=== PATIENT | female | born 1955 | race African-American/Black ===

== ENCOUNTER → 2019-03-30 09:44 | Outpatient (CLI) | payer OTHER, SELFPAY ==
--- NOTE | 2019-03-30 | DI.NM.S_ITS ---
PROCEDURE: NM DUSTY PERF SPECT REST & STR Rest and exercise myocardial perfusion SPECT with gated imaging and ejection fraction RADIOPHARMACEUTICAL: 24.4mCi Tc-99m sestamibi IV at rest and 24.4 mCi Tc-99m sestamibi IV at peak exercise. A 4-tmd-evwwwmte was performed. INDICATIONS: CHEST PAIN TECHNIQUE: Radiopharmaceutical was injected at peak stress test, and also at rest. SPECT images were obtained. SPECT myocardial perfusion images were displayed in short axis, horizontal long axis, and vertical long axis views. Gated images were reviewed using GPNX software. COMPARISON: None. CARDIAC STRESS: A standard Leo treadmill exercise tolerance test was performed by the patient under the supervision of an attending staff. The patient exercised for 3 minutes and 49 seconds; functional aerobic impairment (NAVDEEP) is +35 %. Hemodynamic data: There is normal blood pressure and heart rate response to exercise stress. Patient achieved 88% of maximum predicted heart rate at peak exercise. Symptoms: Patient denied chest pain during exercise. EKG: No diagnostic EKG changes of ischemia; no ectopy. FINDINGS: Raw data: There is good myocardial labeling by radiotracer. No significant motion artifacts. Fvlh-oi-vtbgs ratio is 0.26 (normal is less than 0.38 for sestamibi tracer, and less than 0.50 for thallium tracer). Left ventricle function: Gated images demonstrate normal left ventricle wall thickening. No segmental wall motion abnormality. No transient ischemic dilation; TID is 0.85 (normal less than 1.3). The left ventricle resting end-diastolic volume is 89 mL. Left ventricle stress ejection fraction is 66% ; normal values are above 45%. Myocardial perfusion: There is normal distribution of activity in the left ventricular myocardium. No fixed or reversible perfusion defects. IMPRESSION: Normal perfusion study without evidence of ischemia or scar. Impaired exercise tolerance. Dictated by: Akbar Huber M.D. on 03/31/2019 at 16:40 Approved by: Akbar Huber M.D. on 03/31/2019 at 16:48
--- NOTE | 2019-03-30 10:48 | PM.TREADMILL ---
Cardiac Stress Test Report Referral & Results Date Patient Seen: 03/30/19 Requesting provider: Georgie Serrano Indication: Chest discomfort Rest ECG: Unremarkable Procedure Note: Today following both written and verbal informed consent the patient was exercised according to a standard Leo protocol patient went for a total of 3 minutes 49 seconds (patient unable to keep up with the treadmill even at this slow speed and it was manually reduced in speed) achieving a maximum heart rate of 138 maximum systolic blood pressure of 150. This is approximately 4.6 METS. Exercise was terminated at this point because of patient unable to continue. Patient was also given Cardiolite through a previously started Hep-Lock IV by the diagnostic imaging staff approximately 1 minute prior to the cessation of exercise. No ST-T segment changes Normal heart rate and blood pressure response Functional aerobic impairment rates about 25% on the sedentary scale Impression: No ECG evidence of ischemia Limited exercise capacity Please see perfusion imaging report as well Please note: Actual ECG tracings can be found in the PACS system.
== END ==
PROVIDERS: PCP Family Medicine; Visit Provider Family Medicine
DX: R07.89 Other chest pain (principal)
CPT/HCPCS: 78452; 93016; 93017; 93018; A9502

== ENCOUNTER → 2019-09-14 10:03 | Outpatient (CLI) | payer OTHER, SELFPAY ==
--- NOTE | 2019-09-14 | DI.US.S_ITS ---
ULTRASOUND OF LEFT BREAST: 09/14/2019 CLINICAL: Palpable left breast lump. No prior exams were available for comparison. Color flow and real-time ultrasound of the left breast were performed on the areas of interest. Paul scale images of the real-time examination were reviewed. There is a 0.9 cm x 0.4 cm x 0.9 cm mass in the left breast at 12 o'clock middle depth. This mass is hyperechoic. This correlates as palpated. IMPRESSION: INCOMPLETE: NEEDS ADDITIONAL IMAGING EVALUATION The 0.9 cm x 0.4 cm x 0.9 cm mass in the left breast likely represents fat necrosis and is indeterminate. Diagnostic mammogram is recommended and will immediately follow this exam. This exam was interpreted at Station ID: [id number]. Electronically Signed By: Danielle Burrows M.D. lk/:09/14/2019 16:09:49 Ultrasound BI-RADS: 0 Indeterminate
--- NOTE | 2019-09-14 | DI.MG.S_ITS ---
UNILATERAL LEFT DIGITAL DIAGNOSTIC MAMMOGRAM 3D/2D: 09/14/2019 CLINICAL: Leftbreastlump. Comparison is made to exams dated: 05/07/2019 mammogram, 12/18/2016 mammogram, and 09/30/2015 mammogram - [facility]. The tissue of left breast is predominantly fatty. No significant masses, calcifications, or other findings are seen in the breast. IMPRESSION: PROBABLY BENIGN There is no mammographic abnormality seen in the left breast to correspond with the palpable abnormality and ultrasound finding at 12 o'clock. A follow-up left mammogram and an ultrasound in 6 months is recommended to demonstrate stability. This exam was interpreted at Station ID: [id number]. NOTE: For mammograms, a report in lay terms will be sent to the patient. Approximately 15% of breast malignancies will not be visualized mammographically. In the management of a palpable breast mass, a negative mammogram must not discourage biopsy of a clinically suspicious lesion. Electronically Signed By: Danielle Burrows M.D. lk/:09/14/2019 16:10:53 letter sent: Followup Recommended ACR BI-RADS Category 3: Probably benign [id number]
== END ==
PROVIDERS: PCP Family Medicine; Referring Provider Family Medicine; Visit Provider Family Medicine
DX: N63.25 Unspecified lump in the left breast, overlapping quadrants (principal)
CPT/HCPCS: 76642; 77065; G0279

== ENCOUNTER → 2020-04-13 12:43 | Outpatient (CLI) | payer OTHER, SELFPAY ==
--- NOTE | 2020-04-13 | DI.MG.S_ITS ---
BILATERAL DIGITAL DIAGNOSTIC MAMMOGRAM 3D/2D SHORT-TERM FOLLOW-UP: 04/13/2020 CLINICAL: Patient returns for a 6 month follow up of the left breast, due for bilateral exam. Comparison is made to exams dated: 09/14/2019 ultrasound - [facility], 05/07/2019 mammogram, 12/18/2016 mammogram - [facility], and 09/14/2019 mammogram - [facility]. There are scattered fibroglandular elements in both breasts. No significant masses, calcifications, or other findings are seen in either breast. IMPRESSION: INCOMPLETE: NEEDS ADDITIONAL IMAGING EVALUATION There is no abnormality seen in the left breast to correspond with the ultrasound finding, however, ultrasound is recommended. This exam was interpreted at Station ID: [id number]. NOTE: For mammograms, a report in lay terms will be sent to the patient. Approximately 15% of breast malignancies will not be visualized mammographically. In the management of a palpable breast mass, a negative mammogram must not discourage biopsy of a clinically suspicious lesion. SUMMARY: Targeted ultrasound is recommended for further evaluation and will be scheduled immediately following this exam. Electronically Signed By: Hay vazquez/erna:04/13/2020 13:43:03 ACR BI-RADS Category 0: Incomplete [id number]
--- NOTE | 2020-04-13 | DI.US.S_ITS ---
LIMITED ULTRASOUND OF LEFT BREAST: 04/13/2020 CLINICAL: 6 month follow-up of cysts. Comparison is made to exams dated: 04/13/2020 mammogram, 09/14/2019 mammogram, 09/14/2019 ultrasound - [facility], and 05/07/2019 mammogram - [facility]. Color flow ultrasound of the left breast 12 o'clock region was performed. Paul scale images of the real-time examination were reviewed. There is a 0.9 cm x 0.4 cm x 0.9 cm mass in the left breast at 12 o'clock middle depth 3 cm from the nipple. This mass is hyperechoic. This abnormality is not significantly changed. IMPRESSION: PROBABLY BENIGN The 0.9 cm x 0.4 cm x 0.9 cm mass in the left breast likely represents fat necrosis and is probably benign. A follow-up left ultrasound in 6 months is recommended to demonstrate stability. This exam was interpreted at Station ID: [id number]. Electronically Signed By: Hay vazquez/erna:04/13/2020 14:09:29 letter sent: Followup Recommended Ultrasound BI-RADS: 3 Probably benign
== END ==
PROVIDERS: PCP Family Medicine; Referring Provider Family Medicine; Visit Provider Family Medicine
DX: R92.8 Other abnormal and inconclusive findings on diagnostic imaging of breast (principal); N63.25 Unspecified lump in the left breast, overlapping quadrants
CPT/HCPCS: 76642; 77066; G0279

== ENCOUNTER → 2020-09-21 11:08 | Outpatient (CLI) | payer OTHER, SELFPAY ==
--- NOTE | 2020-09-21 | DI.US.S_ITS ---
ULTRASOUND OF LEFT BREAST: 09/21/2020 CLINICAL: Patient returns today to evaluate a focal asymmetry in the left breast. Comparison is made to exams dated: 04/13/2020 ultrasound, 04/13/2020 mammogram, 09/14/2019 mammogram, 09/14/2019 ultrasound - [facility], and 05/07/[address] - [facility]. Color flow and real-time ultrasound of the left breast were performed. Paul scale images of the real-time examination were reviewed. There is a 0.9 cm x 0.4 cm x 0.9 cm mass in the left breast at 12 o'clock middle depth 3 cm from the nipple. This mass is hyperechoic. This abnormality is not significantly changed. IMPRESSION: PROBABLY BENIGN The 0.9 cm x 0.4 cm x 0.9 cm mass in the left breast likely represents fat necrosis and is probably benign. A follow-up ultrasound in 6 months is recommended to demonstrate stability. This exam was interpreted at Station ID: [id number]. Electronically Signed By: Juanpablo Dominguez M.D., jr/erna:09/21/2020 12:53:19 letter sent: Followup Recommended Ultrasound BI-RADS: 3 Probably benign
== END ==
PROVIDERS: PCP Family Medicine; Referring Provider Family Medicine; Visit Provider Family Medicine
DX: R92.8 Other abnormal and inconclusive findings on diagnostic imaging of breast (principal); N63.25 Unspecified lump in the left breast, overlapping quadrants
CPT/HCPCS: 76642

== ENCOUNTER → 2020-09-24 14:02 | Outpatient (CLI) | payer OTHER, SELFPAY ==
--- NOTE | 2020-09-24 14:04 | DI.MRI.S_ITS ---
PROCEDURE: MR LUMBAR SPINE WO CON INDICATIONS: Postlaminectomy syndrome, not elsewhere classified TECHNIQUE: Noncontrast sagittal T1 spin echo and T2 fast echo, sagittal STIR, axial T1 and T2 fast spin echo through the lumbar spine. In cases with scoliosis, additional coronal T2 fast spin echo may be performed. COMPARISON: [facility], , SPINE LUMB 2 OR 3VW, 04/20/2015, 14:09. FINDINGS: Image quality: Excellent. Alignment and Curvature: There is normal bony alignment. Bones: Postsurgical changes compatible with L5-S1 PLIF. Marrow is of normal overall signal. No acute vertebral body compression fractures. Spinal Cord: Conus medullaris terminates at the L1-2 disc level. Visualized cord demonstrates normal signal and size. Paraspinous Soft Tissues: No paravertebral masses. T12-L1: Normal appearance. L1-L2: Loss of disc signal. Mild, diffuse disc bulge. Mild bilateral facet hypertrophy. Moderate ligamentum flavum hypertrophy. Mild narrowing of the central canal. Moderate bilateral neural foraminal narrowing. No neural compression. L2-L3: Loss of disc signal. Mild, diffuse disc bulge. Mild bilateral facet hypertrophy. Moderate ligamentum flavum hypertrophy. Mild narrowing of the central canal. Moderate bilateral neural foraminal narrowing. No neural compression. L3-L4: Loss of disc signal. Mild, diffuse disc bulge. [id number]-fw-[id number] bilateral facet hypertrophy. Moderate ligamentum flavum hypertrophy. Moderate to severe narrowing of the central canal. Moderate to severe bilateral neural foraminal narrowing. No neural compression. L4-L5: Loss of disc signal. Mild, diffuse disc bulge. Severe bilateral facet hypertrophy. Severe ligamentum flavum hypertrophy. Severe narrowing of the central canal with compression of the nerve roots of the cauda equina. Moderate to severe bilateral neural foraminal narrowing. L5-S1: Status post fusion. Moderate bilateral facet hypertrophy. No central stenosis. Severe left neural foraminal narrowing secondary to facet hypertrophy with compression of the exiting left L5 nerve root. IMPRESSION: 1. Status post L5-S1 PLIF. 2. Multilevel degenerative disc disease. 3. Multilevel facet arthropathy. 4. Severe L4-L5 central canal narrowing with compression of the nerve roots of the cauda equina. 5. Severe left L5-S1 neural foraminal narrowing with compression of the exiting left L5 nerve root. Dictated by: Monica Pandey MD, PhD on 09/26/2020 at 10:49 Approved by: Monica Pandey MD, PhD on 09/26/2020 at 10:54
== END ==
PROVIDERS: PCP Family Medicine; Referring Provider Pain Medicine Pain Medicine; Visit Provider Pain Medicine Pain Medicine
DX: M96.1 Postlaminectomy syndrome, not elsewhere classified (principal); M47.816 Spondylosis without myelopathy or radiculopathy, lumbar region; M47.817 Spondylosis without myelopathy or radiculopathy, lumbosacral region; M48.061 Spinal stenosis, lumbar region without neurogenic claudication; M48.07 Spinal stenosis, lumbosacral region; M51.36 Other intervertebral disc degeneration, lumbar region; M51.37 Other intervertebral disc degeneration, lumbosacral region; Z98.1 Arthrodesis status
CPT/HCPCS: 72148

== ENCOUNTER 2020-09-29 19:33 | Emergency (ER) | payer OTHER, SELFPAY ==
[2020-09-29] VITALS (7 sets, daily range): BP systolic 137–152; BP diastolic 64–85; PULSE 72–81; RESP 17; TEMP 36.7; O2SAT 95–99; BMI 27.2
--- NOTE | 2020-09-29 20:00 | ED_ITS ---
HPI - Back Pain/Injury General Chief Complaint: Back Pain/Injury Stated Complaint: fall, hurt back, loosing urine Time Seen by Provider: 09/29/20 20:00 Source: patient and family (daughter) Limitations: no limitations History of Present Illness HPI Narrative: This is a 65-year-old female comes emergency department with complaint of fall. Patient states that she tripped twice today and describes the falls as mechanical. She states both falls were prior to noon. Patient states the 1st time she sort of tripped and slid against the bathtub. The 2nd time she states she was bending over to pick something up and tripped on her rugs. Patient states she had an episode of urinary incontinence which is new, one when she fell and had LOC, the second was prior to this. She has had chronic back pain and had surgery [place] [address] Louis. She also had recent MRI for her Lspine. She has had paresthesias down both legs in the past with pain radiating down both legs. She denies acute changes. She states that she has had a prior history of surgery on her neck, she has a plate in her lower back. She is on Lyrica, divalproex for migraines. Patient states that she did have a loss of consciousness. She does not think that she passed out. She thinks that she potentially got knocked out and recalls the fall. She has pain in the left side of her chest. Particularly with movement. She states she did have a headache. She denies any nausea or vomiting. No acute vision changes. She does have glaucoma with history of multiple eye surgeries. No bowel incontinence and denies any saddle anesthesia. She states she has weakness and increased pain with movement of her lower extremities. She has been able to ambulate today but is quite uncomfortable. She took some Advil with aspirin earlier today. Related Data Home Medications Medication Instructions Recorded Confirmed divalproex PO 09/29/20 estradiol 0.5 mg 09/29/20 eszopiclone 3 mg 09/29/20 latanoprost drp 09/29/20 medroxyprogesterone mg 09/29/20 mirabegron [Myrbetriq] 50 mg PO DAILY 09/29/20 09/29/20 mirabegron [Myrbetriq] mg PO 09/29/20 paroxetine HCl 40 mg PO DAILY 09/29/20 09/29/20 prednisolone acetate drp 09/29/20 pregabalin 09/29/20 promethazine 25 mg PO PRN PRN 09/29/20 09/29/20 sumatriptan succinate 100 mg PO PRN PRN 09/29/20 09/29/20 timolol maleate 1 drp EYE-BOTH BID 09/29/20 09/29/20 tizanidine 8 mg PO DAILY 09/29/20 09/29/20 verapamil 120 mg PO 09/29/20 Previous Rx's Medication Instructions Recorded hydrocodone-acetaminophen 1 tab PO Q6H PRN #14 tab 09/29/20 Allergies Allergy/AdvReac Type Severity Reaction Status Date / Time Penicillins Allergy Rash Verified 09/29/20 19:53 tetracycline Allergy Rash Verified 09/29/20 19:53 Review of Systems Review of Systems ROS Unobtainable: All systems reviewed & are unremarkable except as noted in HPI and below Patient History Social History Smoking Status: Never smoker Smoking Status: Never smoker alcohol intake frequency: a few times a month Alcohol type: wine Substance Use Type: does not use Exam Narrative Exam Narrative: GEN: Patient appears in moderate distress. HEAD: No evidence of trauma, no raccoon/Fair sign. NECK: Nontender, painless range of motion, trachea midline Negative Nexus criteria, there is no mid line tenderness, distracting injury, altered mental status, neuro deficit, recent EtOH. EYES: PERRLA, EOMI ENT: External inspection normal, trachea is midline, patient does have some left droop of the upper eyelid, airway is normal and with normal occlusion, No bony tenderness RESP: Chest is tender palpation on the left. And has symmetric movement, no ecchymosis, breath sounds are normal no crackles, wheezes or rales, no tachypnea accessory muscle use. CVS: Heart sounds are normal, no murmur noted, No JVD. ABG/GI: Nontender, soft, normal bowel sounds, no distention, no organomegaly, pelvic rock is negative GENIT, RECTAL: Normal external inspection, normal rectal tone NEURO: Oriented AOx3, neuro is grossly intact, sensation and motor is normal all 4 extremities moving, cranial nerves II through XII are intact, GCS is 15 PSYCH: Normal mood and affect SKIN: Intact, warm and dry, no crepitus and without decubitus BACK: Positive for mild lumbar CVA tenderness, no vertebral tenderness, no step-off's, no crepitus. Patient has increased pain on the left lower back and lateral rib region. EXT: Atraumatic, hips are nontender, no pedal edema, normal color and temperature, midly decrased range of motion, MS 5/5 lower extremities, 2/4 DTRs lower extremities, sensation intact to touch, 2+ pulses in all four extremities Initial Vital Signs Initial Vital Signs: Vital Signs Pulse Rate 72 09/29/20 19:46 Pulse Oximetry 97 09/29/20 19:46 Scores GCS [place] coma scale eye opening: Spontaneous Юлия coma scale verbal response: Orientated [place] coma scale motor response: Obey commands Юлия coma scale total score: 15 Course Orders Ordered: ED Orders 09/29/20 20:15 MR lumbar spine w con Stat 09/29/20 20:16 CT head/brain wo con Stat XR ribs LT min 3V w CXR1V Stat EKG-12 Lead Stat 09/29/20 21:20 Complete Blood Count AUTO DIFF Stat Comprehensive Metabolic Panel Stat Ethanol (ETOH) Stat Lipase Stat Partial Thromboplastin Time Stat Prothrombin Time INR Stat Troponin & CK Cardiac Panel Stat Type and Screen Stat Discontinued Medications Hydrocodone Bitart/Acetaminophen (Hydrocodone/Acet 5/325 Prepack) 1 bottle MISC SEEINSTR ONE Stop: 09/29/20 23:06 Last Admin: 09/29/20 23:18 Dose: 1 bottle Documented by: KEVIN Morphine Sulfate (Morphine 4 Mg/Ml Inj) 4 mg IV NOW ONE Stop: 09/29/20 20:18 Last Admin: 09/29/20 21:37 Dose: Not Given Documented by: KEVIN Morphine Sulfate (Morphine 4 Mg/Ml Inj) 4 mg IV NOW ONE Stop: 09/29/20 21:37 Last Admin: 09/29/20 21:50 Dose: 4 mg Documented by: KEVIN Reevaluation(s) Reevaluation #1: Discussed today's findings with the patient. Recommendations from Orthopedic surgery. She expressed understanding and that there is a need for urgent evaluation although does not felt to be emergent tonight. She was able to urinate in department with no additional incontinence. We discussed red flag symptoms and need for emergent return for eval if these occur. Daughter at bedside for conversation. Time: 23:09 Consultations Consultation #1: Spoke with Dr. Solano, MRI images were reviewed. Would recommen d follow up with Dr. Louis. Suspicion for cauda equina is lower at this time. Does not need to return for recheck emergently if she has any additional changes or symptoms. Time: 22:38 Vital Signs Vital signs: Vital Signs - 8 hr 09/29/20 19:46 09/29/20 19:47 09/29/20 21:30 Temperature 98.1 F Pulse Rate 72 77 77 Respiratory Rate 17 Blood Pressure 137/64 Pulse Oximetry 97 95 97 09/29/20 21:31 09/29/20 22:00 09/29/20 22:30 Temperature Pulse Rate 75 79 81 Respiratory Rate Blood Pressure 139/67 137/85 152/73 H Pulse Oximetry 99 98 98 09/29/20 23:00 Temperature Pulse Rate 79 Respiratory Rate Blood Pressure 141/72 H Pulse Oximetry 98 MDM - Back Pain/Injury Lab Data Attestation: I reviewed the patient's lab results. Result diagrams: 09/29/20 21:20 09/29/20 21:20 Labs: Lab Results 09/29/20 09/29/20 09/29/20 Range/Units 21:20 21:20 21:20 WBC 6.0 (4.5-11.0) X10^3/uL RBC 4.08 (4.0-5.2) X10^6/uL Hgb 11.9 L (12.0-16.0) g/dL Hct 37.1 (36-46) % MCV 90.9 (80-100) fL MCH 29.3 (26-34) PG MCHC 32.2 (30-36) % RDW 14.3 (11.6-14.8) % Plt Count 192 (150-400) X10^3/uL Neut % (Auto) 62.7 (50-75) % Lymph % (Auto) 24.7 L (25-40) % Levy % (Auto) 8.6 (3-14) % Eos % (Auto) 3.1 (2-4) % Baso % (Auto) 0.9 (0-2) % Neut # (Auto) 3800 (1566-2000) /uL Lymph # (Auto) 1500 (6355-8155) /uL Levy # (Auto) 500 (0-900) /uL Eos # (Auto) 200 (0-450) /uL Baso # (Auto) 100 (0-100) /uL PT 12.1 (10.1-12.7) SECONDS INR 1.1 (0.9-1.3) APTT 30 (26.4-36.2) SECONDS Sodium 141 (137-145) mmol/L Potassium 4.7 (3.4-5.1) mmol/L Chloride 104 (98-107) mmol/L Carbon Dioxide 32 (22-32) mmol/L BUN 21 H (7-17) mg/dL Creatinine 1.28 H (0.52-1.04) mg/dL Estimated GFR 41.7 L (>60) mL/min BUN/Creatinine Ratio 16.4 (6-22) Glucose 82 (80-110) mg/dL Calcium 9.6 (8.4-10.2) mg/dL Total Bilirubin 0.4 (0.2-1.3) mg/dL AST 41 H (14-36) IU/L ALT 21 (<35) IU/L Alkaline Phosphatase 57 (38-126) U/L Total Creatine Kinase 489 H (30-135) U/L CK-MB (CK-2) 3.59 H (<2.37) ng/mL CK-MB (CK-2) Rel Index 0.7 L (1.5-5.0) % Troponin I < 0.012 (0.01-0.034) ng/mL Total Protein 7.2 (6.3-8.2) g/dL Albumin 4.2 (3.5-5.0) g/dL Globulin 3.0 (1.7-4.1) g/dL Albumin/Globulin Ratio 1.4 (1.0-2.8) Lipase 100 (23-300) U/L Ethyl Alcohol < 10 ( - 10) mg/dL Blood Type Antibody Screen 09/29/20 Range/Units 21:20 WBC (4.5-11.0) X10^3/uL RBC (4.0-5.2) X10^6/uL Hgb (12.0-16.0) g/dL Hct (36-46) % MCV (80-100) fL MCH (26-34) PG MCHC (30-36) % RDW (11.6-14.8) % Plt Count (150-400) X10^3/uL Neut % (Auto) (50-75) % Lymph % (Auto) (25-40) % Levy % (Auto) (3-14) % Eos % (Auto) (2-4) % Baso % (Auto) (0-2) % Neut # (Auto) (1363-9405) /uL Lymph # (Auto) (0252-2347) /uL Levy # (Auto) (0-900) /uL Eos # (Auto) (0-450) /uL Baso # (Auto) (0-100) /uL PT (10.1-12.7) SECONDS INR (0.9-1.3) APTT (26.4-36.2) SECONDS Sodium (137-145) mmol/L Potassium (3.4-5.1) mmol/L Chloride (98-107) mmol/L Carbon Dioxide (22-32) mmol/L BUN (7-17) mg/dL Creatinine (0.52-1.04) mg/dL Estimated GFR (>60) mL/min BUN/Creatinine Ratio (6-22) Glucose (80-110) mg/dL Calcium (8.4-10.2) mg/dL Total Bilirubin (0.2-1.3) mg/dL AST (14-36) IU/L ALT (<35) IU/L Alkaline Phosphatase (38-126) U/L Total Creatine Kinase (30-135) U/L CK-MB (CK-2) (<2.37) ng/mL CK-MB (CK-2) Rel Index (1.5-5.0) % Troponin I (0.01-0.034) ng/mL Total Protein (6.3-8.2) g/dL Albumin (3.5-5.0) g/dL Globulin (1.7-4.1) g/dL Albumin/Globulin Ratio (1.0-2.8) Lipase (23-300) U/L Ethyl Alcohol ( - 10) mg/dL Blood Type B Positive Antibody Screen Negative Urine Dip Bedside Urine Glucose Negative Bedside Urine Bilirubin - Negative Bedside Urine Ketone - Negative Urine Specific [place] 1.030 Bedside Urine Occult Blood - Negative Bedside Urine pH 6 Bedside Urine Protein - Negative Bedside Urine Urobilinogen - Negative Bedside Urine Nitrite - Negative Bedside Urine Leukocytes - Negative Esterase Imaging Data Chest x-ray: Radiologist's Impression: [address] [id number] ReportSigned Patient: Lyudmila Magallanes EMR#: [id number]: [id number]/Sex: 65 / FDate of Service: 09/29/20Loc: EDAccession Number: [id number] Procedure: XR ribs LT min 3V w CXR1V Ordering Provider: Ara Mota D.O. PROCEDURE: XR RIBS LT MIN 3V W CXR1V INDICATIONS: fall, ? syncope vs LOC, left rib, back pain TECHNIQUE: 3 views of the left ribs were acquired, along with a single view chest. COMPARISON: None. FINDINGS: Surgical changes and devices: Cervical spine fixation hardware. Bones and chest wall: No fractures or dislocations. No suspicious bony lesions. Overlying soft tissues appear unremarkable. Lungs and pleura: No pleural effusions or pneumothorax. Lungs appear clear. Mediastinum: Mediastinal contours appear normal. Heart size is normal. IMPRESSION: No displaced rib fracture. No acute cardiopulmonary disease process. Dictated by: Monica Pandey MD, PhD on 09/29/2020 at 20:43 Approved by: Monica Pandey MD, PhD on 09/29/2020 at 20:43 MRI L spine: Radiologist's Impression: [address] [id number] Resonance ReportSigned Patient: Lyudmila Magallanes EMR#: [id number]: [id number]:[id number]/Sex: 65 / FDate of Service: 09/29/20Loc: EDAccession Number: [id number] Procedure: MR lumbar spine w con Ordering Provider: Ara Mota D.O. PROCEDURE: MR LUMBAR SPINE W CON INDICATIONS: low back pain, hx back pain, urinary incontinence, GLF X 2 TECHNIQUE: Noncontrast sagittal T1 spin echo and T2 fast spin echo, sagittal STIR, axial T1 and T2 fast spin echo through the lumbar spine. In cases with scoliosis, additional coronal T2 fast spin echo may be performed. After the administration of contrast, sagittal and axial T1 spin echo with fat saturation through the lumbar spine. COMPARISON: [facility] [place], [place], SPINE LUMB 2 OR 3VW, 04/20/2015, 14:09. FINDINGS: Image quality: Excellent. Alignment and curvature: There is normal bony alignment. Bones: Postsurgical changes compatible with L5-S1 PLIF. Marrow is of normal overall signal. No acute vertebral body compression fractures. No suspicious marrow enhancement. Spinal cord: Conus medullaris terminates at the L1 level. Visualized spinal cord demonstrates normal signal, without suspicious enhancement. Paraspinous soft tissues: No paravertebral masses or abnormal enhancement. T12-L1: Normal appearance. L1-L2: Loss of disc signal. Minimal, diffuse disc bulge. Mild bilateral facet hypertrophy. Mild narrowing of the central canal. Mild bilateral neural foraminal narrowing. No neural compression. L2-L3: Loss of disc signal. Mild bilateral facet hypertrophy. Moderate ligamentum flavum hypertrophy. Mild to moderate narrowing of the central canal. Mild bilateral neural foraminal narrowing. No neural compression. L3-L4: Loss of disc signal. Mild, diffuse disc bulge. Moderate facet and moderate ligamentum flavum hypertrophy. Moderate narrowing of the central canal. Moderate bilateral neural foraminal narrowing. No neural compression. L4-L5: Loss of disc signal. Mild, diffuse disc bulge. Severe bilateral facet hypertrophy. Severe ligamentum flavum hypertrophy. Severe narrowing of the central canal with compression of the nerve roots of the cauda equina. Moderate to severe right and moderate left neural foraminal narrowing with slight compression of the exiting right L4 nerve root. L5-S1: Status post fusion. Mild bilateral facet hypertrophy. No central steno sis. Severe left neural foraminal narrowing with compression of the exiting left L5 nerve root. IMPRESSION: 1. L5-S1 PLIF. 2. Multilevel degenerative disc disease. 3. Multilevel facet arthropathy. 4. Severe L4-L5 central canal narrowing with compression of the nerve roots of the cauda equina. 5. Moderate to severe right L4-L5 neural foraminal narrowing with slight compression of the exiting right L4 nerve root. Severe left L5-S1 neural foraminal narrowing with compression of the exiting left L5 nerve root. 6. No suspicious postcontrast enhancement. Dictated by: Monica Pandey MD, PhD on 09/29/2020 at 21:25 Approved by: Monica Pandey MD, PhD on 09/29/2020 at 21:29 CT scan - head: Radiologist's Impression: [address] [id number] Scan ReportSigned Patient: Lyudmila Magallanes EMR#: [id number]: 4Acct:[id number]/Sex: 65 / FDate of Service: 09/29/20Loc: EDAccession Number: [id number] Procedure: CT head/brain wo con Ordering Provider: Ara Mota D.O. PROCEDURE: CT HEAD/BRAIN WO CON INDICATIONS: fall, ? syncope vs LOC, left rib, back pain TECHNIQUE: Noncontrast 4.5 mm thick angled axial sections acquired from the foramen magnum to the vertex, with coronal and sagittal reformats. For radiation dose reduction, the following was used: automated exposure control, adjustment of mA and/or kV according to patient size. COMPARISON: None. FINDINGS: Image quality: Excellent. CSF spaces: Basal cisterns are patent. No extra-axial fluid collections. The ventricles are symmetric in size and shape. Brain: No intracranial bleeds or masses. There is cerebral volume loss for age, with resultant ventricular and sulcal prominence. There are periventricular and deep white matter chronic small vessel ischemic changes. There is intracranial internal carotid artery atherosclerosis. Skull and face: Calvarium and visualized facial bones appear intact, without suspicious lesions. Left scleral band. Sinuses: Visualized sinuses and mastoids are clear. IMPRESSION: No acute intracranial disease process. Dictated by: Monica Pandey MD, PhD on 09/29/2020 at 20:44 Approved by: Monica Pandey MD, PhD on 09/29/2020 at 20:46 ECG Data Attestation: I personally reviewed and interpreted this ECG as follows: Interpretation: NRS, rate of 82, pr of 122, qrs of 74, qtc of 467. No acute ST changes appreciated. Patient appears to have some motion artifact in lateral leads. No acute ischemic changes appreciated. MDM Narrative Medical decision making narrative: This is a 65-year-old female who arrives with complaint of mechanical fall x2 with likely concussion. Patient did have a loss of bladder control and suspect that this may have been secondary to loss of consciousness from her fall. From exam and patient's history I suspect she had loss of conscious from hitting her head and not from a syncopal episode. EKG and labs do not show any acute findings of her symptoms today. Creatinine is noted to be elevated with no priors for comparison. Troponin EKG did not show acute changes. Head CT is negative, chest and rib x-ray did not show any acute fracture. Lumbar MRI was obtained and had a comparison from 09/24/2020. Patient does have significant narrowing and neural foraminal stenosis. Patient's exam does not have any saddle anesthesia, she is able to urinate in the department without issue. She does have chronic pain and paresthesias but does not have any acute changes to these and her physical exam does not show any acute changes. This was reviewed with Orthopedic surgery. Patient's surgeon Dr. Louis could not follow with the patient in the short term and it was discussed that she may need to follow with his prior partner Dr. Orellana for urgent follow up. Dr. Solano encouraged patient to call the office tomorrow to set up follow-up, they may require referral to see the other orthopedic surgeon with plan for strict return precautions. Patient expresses understanding. Discharge Plan Departure Patient Disposition: Home Clinical Impression: Fall, Concussion, Back pain Instructions: DI for Low Back Pain Activity Restrictions/Additional Instructions: Follow up with the orthopedic office tomorrow. Ask that they set you up for evaluation and they may need to refer you to Dr. Orellana at [facility]. Let the front desk specialist know that Dr. Solano and I discussed these recommendations. Dr. Louis is unavailable for [id number] evaluation for several weeks. Continue home medications as prescribed. [facility] [place] Take pain medication as prescribed, this medication can make you sleepy do not drive, perform hazardous activities or make any major decisions while taking it. This medication is also constipating make sure you take a stool softener at least once daily while taking it until stools are regular and soft. Please return for red flag symptoms, fevers greater 100.4 F, new saddle anesthesia or numbness in her groin, loss of sensation that is new or different in your lower extremities, rapidly worsening back pain, loss of bowel or bladder control, new weakness in your extremities, severe headaches, new or worsening chest pain or pressure, passing out, persistent vomiting or other new or concerning symptoms. Prescriptions: New hydrocodone-acetaminophen 5-325 mg tablet 1 tab PO Q6H PRN (Reason: pain) Qty: 14 RF: 0 No Action verapamil 120 mg tablet extended release 120 mg PO RF: 0 latanoprost 0.005 % drops RF: 0 tizanidine 4 mg tablet 8 mg PO DAILY RF: 0 sumatriptan succinate 100 mg tablet 100 mg PO PRN PRN (Reason: Migraine Headache) RF: 0 medroxyprogesterone 2.5 mg tablet RF: 0 prednisolone acetate 1 % drops,suspension RF: 0 promethazine 25 mg tablet 25 mg PO PRN PRN (Reason: Nausea) RF: 0 divalproex 125 mg tablet,delayed release (DR/EC) PO RF: 0 estradiol 0.5 mg tablet 0.5 mg RF: 0 paroxetine HCl 40 mg tablet 40 mg PO DAILY RF: 0 eszopiclone 3 mg tablet 3 mg RF: 0 timolol maleate 0.5 % drops, once daily 1 drp EYE-BOTH BID RF: 0 pregabalin 75 mg capsule RF: 0 Myrbetriq 50 mg tablet extended release 24 hr 50 mg PO DAILY RF: 0 Myrbetriq 50 mg tablet extended release 24 hr PO RF: 0 Referrals: Kalin Louis MD [Physician] - Georgie Serrano DO [Primary Care Provider] -
--- NOTE | 2020-09-29 20:15 | DI.MRI.S_ITS ---
PROCEDURE: MR LUMBAR SPINE W CON INDICATIONS: low back pain, hx back pain, urinary incontinence, GLF X 2 TECHNIQUE: Noncontrast sagittal T1 spin echo and T2 fast spin echo, sagittal STIR, axial T1 and T2 fast spin echo through the lumbar spine. In cases with scoliosis, additional coronal T2 fast spin echo may be performed. After the administration of contrast, sagittal and axial T1 spin echo with fat saturation through the lumbar spine. COMPARISON: [facility] [place], , SPINE LUMB 2 OR 3VW, 04/20/2015, 14:09. FINDINGS: Image quality: Excellent. Alignment and curvature: There is normal bony alignment. Bones: Postsurgical changes compatible with L5-S1 PLIF. Marrow is of normal overall signal. No acute vertebral body compression fractures. No suspicious marrow enhancement. Spinal cord: Conus medullaris terminates at the L1 level. Visualized spinal cord demonstrates normal signal, without suspicious enhancement. Paraspinous soft tissues: No paravertebral masses or abnormal enhancement. T12-L1: Normal appearance. L1-L2: Loss of disc signal. Minimal, diffuse disc bulge. Mild bilateral facet hypertrophy. Mild narrowing of the central canal. Mild bilateral neural foraminal narrowing. No neural compression. L2-L3: Loss of disc signal. Mild bilateral facet hypertrophy. Moderate ligamentum flavum hypertrophy. Mild to moderate narrowing of the central canal. Mild bilateral neural foraminal narrowing. No neural compression. L3-L4: Loss of disc signal. Mild, diffuse disc bulge. Moderate facet and moderate ligamentum flavum hypertrophy. Moderate narrowing of the central canal. Moderate bilateral neural foraminal narrowing. No neural compression. L4-L5: Loss of disc signal. Mild, diffuse disc bulge. Severe bilateral facet hypertrophy. Severe ligamentum flavum hypertrophy. Severe narrowing of the central canal with compression of the nerve roots of the cauda equina. Moderate to severe right and moderate left neural foraminal narrowing with slight compression of the exiting right L4 nerve root. L5-S1: Status post fusion. Mild bilateral facet hypertrophy. No central stenosis. Severe left neural foraminal narrowing with compression of the exiting left L5 nerve root. IMPRESSION: 1. L5-S1 PLIF. 2. Multilevel degenerative disc disease. 3. Multilevel facet arthropathy. 4. Severe L4-L5 central canal narrowing with compression of the nerve roots of the cauda equina. 5. Moderate to severe right L4-L5 neural foraminal narrowing with slight compression of the exiting right L4 nerve root. Severe left L5-S1 neural foraminal narrowing with compression of the exiting left L5 nerve root. 6. No suspicious postcontrast enhancement. Dictated by: Monica Pandey MD, PhD on 09/29/2020 at 21:25 Approved by: Monica Pandey MD, PhD on 09/29/2020 at 21:29
--- NOTE | 2020-09-29 20:16 | DI.CT.S_ITS ---
PROCEDURE: CT HEAD/BRAIN WO CON INDICATIONS: fall, ? syncope vs LOC, left rib, back pain TECHNIQUE: Noncontrast 4.5 mm thick angled axial sections acquired from the foramen magnum to the vertex, with coronal and sagittal reformats. For radiation dose reduction, the following was used: automated exposure control, adjustment of mA and/or kV according to patient size. COMPARISON: None. FINDINGS: Image quality: Excellent. CSF spaces: Basal cisterns are patent. No extra-axial fluid collections. The ventricles are symmetric in size and shape. Brain: No intracranial bleeds or masses. There is cerebral volume loss for age, with resultant ventricular and sulcal prominence. There are periventricular and deep white matter chronic small vessel ischemic changes. There is intracranial internal carotid artery atherosclerosis. Skull and face: Calvarium and visualized facial bones appear intact, without suspicious lesions. Left scleral band. Sinuses: Visualized sinuses and mastoids are clear. IMPRESSION: No acute intracranial disease process. Dictated by: Monica Pandey MD, PhD on 09/29/2020 at 20:44 Approved by: Monica Pandey MD, PhD on 09/29/2020 at 20:46
--- NOTE | 2020-09-29 20:16 | DI.RAD.S_ITS ---
PROCEDURE: XR RIBS LT MIN 3V W CXR1V INDICATIONS: fall, ? syncope vs LOC, left rib, back pain TECHNIQUE: 3 views of the left ribs were acquired, along with a single view chest. COMPARISON: None. FINDINGS: Surgical changes and devices: Cervical spine fixation hardware. Bones and chest wall: No fractures or dislocations. No suspicious bony lesions. Overlying soft tissues appear unremarkable. Lungs and pleura: No pleural effusions or pneumothorax. Lungs appear clear. Mediastinum: Mediastinal contours appear normal. Heart size is normal. IMPRESSION: No displaced rib fracture. No acute cardiopulmonary disease process. Dictated by: Monica Pandey MD, PhD on 09/29/2020 at 20:43 Approved by: Monica Pandey MD, PhD on 09/29/2020 at 20:43
[2020-09-29 21:44] LABS: Add Manual Diff / Slide Review NO; Basophils Absolute Auto 100 /uL (0-100); Basophils Percent Auto 0.9 % (0-2); Eosinophils Absolute Auto 200 /uL (0-450); Eosinophils Percent Auto 3.1 % (2-4); Hematocrit 37.1 % (36-46); Hemoglobin 11.9 g/dL (12.0-16.0); Lymphocytes Absolute Auto 1500 /uL (1100-4500); Lymphocytes Percent Auto 24.7 % (25-40); Mean Corpuscular HGB Conc 32.2 % (30-36); Mean Corpuscular Hemoglobin 29.3 PG (26-34); Mean Corpuscular Volume 90.9 fL (80-100); Monocytes Absolute Auto 500 /uL (0-900); Monocytes Percent Auto 8.6 % (3-14); Neutrophils Absolute Auto 3800 /uL (1500-7000); Neutrophils Percent Auto 62.7 % (50-75); Platelet Count 192 X10^3/uL (150-400); Red Blood Cell Count 4.08 X10^6/uL (4.0-5.2); Red Cell Distribution Width 14.3 % (11.6-14.8)
[2020-09-29 21:46] LABS: INR 1.1 (0.9-1.3); Prothrombin Time 12.1 SECONDS (10.1-12.7)
[2020-09-29 21:49] LABS: PTT Partial Thromboplastin Tim 30 SECONDS (26.4-36.2)
[2020-09-29] MEDS: MORPHINE 4 MG/ML INJ IV (21:50)
[2020-09-29 21:51] LABS: Alanine Aminotransferase 21 IU/L (<35); Albumin 4.2 g/dL (3.5-5.0); Albumin Globulin Ratio 1.4 (1.0-2.8); Alkaline Phosphatase 57 U/L (38-126); Aspartate Aminotransferase 41 IU/L (14-36); BUN Creatinine Ratio 16.4 (6-22); Bilirubin Total 0.4 mg/dL (0.2-1.3); Blood Urea Nitrogen 21 mg/dL (7-17); Calcium 9.6 mg/dL (8.4-10.2); Carbon Dioxide 32 mmol/L (22-32); Chloride 104 mmol/L (98-107); Creatine Kinase 489 U/L (30-135); Estimated Glomerular Filt Rate 41.7 mL/min (>60); Glucose 82 mg/dL (80-110); HEMOLYSIS < 15 (0-50); Lipase 100 U/L (23-300); Potassium 4.7 mmol/L (3.4-5.1); Sodium 141 mmol/L (137-145); Total Protein 7.2 g/dL (6.3-8.2)
[2020-09-29 22:02] LABS: Ethanol (ETOH) < 10 mg/dL
[2020-09-29 22:03] LABS: Troponin I < 0.012 ng/mL (0.01-0.034)
[2020-09-29 22:07] LABS: CKMB % Relative Index 0.7 % (1.5-5.0); Creatine Kinase MB 3.59 ng/mL (<2.37)
[2020-09-29] MEDS: HYDROCODONE/ACET 5/325 PREPACK 1 BOTTLE MISC (23:18)
== END 2020-09-29 23:30 | disposition home or self-care (01) ==
PROVIDERS: Emergency Provider Emergency Medicine; PCP Family Medicine
DX: S06.0X9A Concussion with loss of consciousness of unspecified duration, initial encounter (principal); M54.9 Dorsalgia, unspecified; W01.0XXA Fall on same level from slipping, tripping and stumbling without subsequent striking against object, initial encounter
CPT/HCPCS: 36415; 70450; 71101; 72149; 80053; 80320; 81003; 82550; 82553; 83690; 84484; 85025; 85610; 85730; 86850; 86900; 86901; 93005; 96374; 99284; A9579; J2270

== ENCOUNTER → 2020-11-16 10:33 | Outpatient (CLI) | payer OTHER, SELFPAY ==
[2020-11-16 11:31] LABS: Add Manual Diff / Slide Review NO; Basophils Absolute Auto 0 /uL (0-100); Basophils Percent Auto 0.7 % (0-2); Eosinophils Absolute Auto 100 /uL (0-450); Eosinophils Percent Auto 2.2 % (2-4); Hematocrit 38.5 % (36-46); Hemoglobin 12.7 g/dL (12.0-16.0); Lymphocytes Absolute Auto 1600 /uL (1100-4500); Lymphocytes Percent Auto 32.2 % (25-40); Mean Corpuscular HGB Conc 33.1 % (30-36); Mean Corpuscular Volume 90.5 fL (80-100); Monocytes Absolute Auto 600 /uL (0-900); Monocytes Percent Auto 11.8 % (3-14); Neutrophils Absolute Auto 2600 /uL (1500-7000); Neutrophils Percent Auto 53.1 % (50-75); Platelet Count 188 X10^3/uL (150-400); Red Blood Cell Count 4.25 X10^6/uL (4.0-5.2); Red Cell Distribution Width 13.6 % (11.6-14.8); White Blood Cell Count 4.9 X10^3/uL (4.5-11.0)
[2020-11-16 11:44] LABS: BUN Creatinine Ratio 18.2 (6-22); Blood Urea Nitrogen 20 mg/dL (7-17); Calcium 9.2 mg/dL (8.4-10.2); Carbon Dioxide 29 mmol/L (22-32); Chloride 103 mmol/L (98-107); Estimated Glomerular Filt Rate 49.7 mL/min (>60); Glucose 85 mg/dL (80-110); HEMOLYSIS < 15 (0-50); Potassium 4.6 mmol/L (3.4-5.1); Sodium 138 mmol/L (137-145)
== END ==
PROVIDERS: PCP Family Medicine; Referring Provider Orthopaedic Surgery Orthopaedic Surgery of the Spine; Visit Provider Orthopaedic Surgery Orthopaedic Surgery of the Spine
DX: Z01.818 Encounter for other preprocedural examination (principal); I10 Essential (primary) hypertension; Z01.812 Encounter for preprocedural laboratory examination
CPT/HCPCS: 36415; 80048; 85025; 93005; 93010

== ENCOUNTER → 2020-12-19 10:40 | Outpatient (CLI) | payer OTHER, SELFPAY ==
[2020-12-19 13:41] LABS: COVID19 -Nasal RAPID Negative (Negative)
== END ==
PROVIDERS: PCP Family Medicine; Visit Provider Physician Assistant
DX: Z01.812 Encounter for preprocedural laboratory examination (principal); Z20.822 Contact with and (suspected) exposure to COVID-19
CPT/HCPCS: 87635

== ENCOUNTER 2020-12-21 06:29 | Inpatient (IN) | payer OTHER, SELFPAY ==
[2020-12-13 09:51] VITALS: BMI 27.3
[2020-12-21] VITALS (17 sets, daily range): BP systolic 120–169; BP diastolic 57–102; PULSE 66–88; RESP 8–18; TEMP 35.8–37.1; O2SAT 89–100; BMI 27.3
--- NOTE | 2020-12-21 | DI.RAD.S_ITS ---
PROCEDURE: XR LUMBAR SPINE 2-3V INDICATIONS: L4-S1 TLIF TECHNIQUE: 3 views of the lumbar spine were acquired. COMPARISON: [facility], MR, MR LUMBAR SPINE W CON, 09/29/2020, 20:27. FINDINGS: Bones: Intraoperative posterior fusion from L4 through S1 is noted. Intervertebral spacers are noted. There is good anatomic alignment. IMPRESSION: Intraoperative L4 through S1 posterior fixation with intervertebral spacers. Dictated by: Razia Husain M.D. on 12/21/2020 at 12:19 Approved by: Razia Husain M.D. on 12/21/2020 at 12:21
[2020-12-21] MEDS: LACTATED RINGERS 1,000 ML 42 ML IV ×2 (07:35→10:06)
--- NOTE | 2020-12-21 07:39 | PM.PREOP ---
Pre-operative Note COVID-19 COVID-19 status: Negative Result date/Date tested (Pos, Neg/Pending): 12/19/20 Interval Note History & Physical reviewed/Exam performed by Physician: Yes Changes to H&P: No
[2020-12-21] MEDS: CEFAZOLIN 1 GM VIAL 2 GM IV ×3 (08:15→23:45)
--- NOTE | 2020-12-21 08:29 | SUR.OPER ---
Prone on spine table, head in foam head support, padded chest and pelvic supports, gel pad at knees, lower legs supported by pillows; nipples, genitalia and toes free of pressure, arms secured on foam padded arm boards at <90 degrees abduction. Tape over blanket at thigh secured to table.
[2020-12-21] MEDS: BUPIVACAINE LIPOSOME 266 MG/20 ML VIAL INJ (08:37)
[2020-12-21] MEDS: BUPIVACAINE 0.25% (PF) VIAL 30 ML INJ (08:38)
--- NOTE | 2020-12-21 11:59 | P.OP_ITS ---
Operative Date/Time/Diagnoses Date of procedure: 12/21/20 Time of procedure: 07:59 Pre-op diagnosis: 1. L4-5 spinal stenosis with neurogenic claudication 2. Hx of L5-S1 fusion with instrumentation 3. L4-5, L5-S1 spondylosis with radiculopathy Post-op diagnosis: same Procedure & Clinicians Procedure: 1. L4-5 posterolateral and posterior interbody fusion 2. L4-5 posterior interbody cage placement 3. L5-S1 posterior non-segmental instrumentation removal 4. L5-S1 revision laminectomy with exploration of fusion 5. L4-5, L5-S1 posterior segmental instrumentation with pedicle screw placement 6. L5-S1 posterolatearl fusion 7. [place] of bone marrow from iliac crest through a separate incision 8. Utilization of microsurgical technique and operating microscope Same procedure as scheduled: Yes Indications: Patient has been having chronic back pain and worsening lumbar radiculopathy. Patient had prior fusion L5-S1 level 7 years ago. Patient failed multiple conservative management with worsening pain weakness and numbness in her lower extremity. Patient has been having difficulty performing activity of daily living. After discussing risks benefits of treatment options, patient elected proceed with surgery. Surgeon: Kalin Loius Public Safety Director: Mane Galloway Click Yes if Unassisted: No Anesthesia Type: General Operative Notes Closure Type: primary Specimen(s): none sent Prosthetic devices, grafts, tissues, transplants, or devices: Globus revolve screws, Rise cages Applied: catheter Estimated Blood Loss (mL): 100 Blood products transfused: none Procedure in detail: Patient was seen in the preoperative area. Risks and benefits of the surgery was discussed with the patient. Informed consent was obtained from the patient and placed in the chart. Surgical site was marked. Patient was taken to the operative room. General anesthesia was administered. Prophylactic antibiotic was given to the patient less than 30 min before the incision was made. Patient was placed into a prone position on the Koby table. Patient's back was then prepped and draped in the sterile fashion. Time- out was performed at this time. Using patient's previous scar incision was made over the L4-5 L5-S1 interval on the left side. Fascia was incised in line with skin incision. Patient's previously placed hardware over the L5-S1 level was identified by dissecting down to the level the hardware using a Bovie and a Kim. The locking caps which was removed using globus screwdriver. The locking agatha was then removed from the [place]ips of the pedicle screws using a Sarai. The pedicle screws were then removed using the screwdriver. The screws were found to have good purchase. The Globus and MARS retractors was then placed into the wound and docked onto the L4 lamina using C-arm guidance. Using microsurgical technique and operating microscope a laminectomy facetectomy was performed by removing the L4 lamina and the L4-5 facet. The disc space at L4-5 level was identified next. And a total diskectomy was performed at L4-5 level. The endplates were decorticated using a rasp and shaver. The total diskectomy and decortication was performed at L4-5 level in order to to accomplish a L4-5 fusion. The local bone from the laminectomy and facetectomy was saved for local bone grafting. After the total diskectomy and decortication was completed, Trifecta bone graft material was combined with local bone that was harvested earlier. At this time, a separate skin is incision was made over the iliac crest. A Jamshidi needle was inserted into the iliac crest through a separate skin incision. 5 cc of bone marrow aspiration was obtained through the separate skin incision using a Jamshidi needle from the iliac crest. The bone marrow aspiration was combined with local bone and the Trifecta bone grafting material. The bone grafting material was placed into the L4-5 interbody space along with a expandable cage. The cage was expanded to its maximum height using the torque limiting screwdriver. At this time a mirror image incision was made on the right side. The fascia was incised in line with the skin incision. Patient's previously placed hardware on the right side was then removed in the same fashion as it was on the left side. The hardware was also found to have good purchase. The fusion mass on the left side was exposed by performing a right-sided hemilaminectomy at L5-S1 level. The hemilaminectomy was performed using the Kerrison rongeur to undercut the lamina as well removing additional epidural scar tissue for purpose of decompressing the epidural space. The fusion mass was explored and was found have visible motion indicating pseudoarthrosis at L5-S1 on the right side. Globus MARS retractor was inserted and docked onto the L4-5 L5-S1 posterolateral gutter. Using the power drill, posterior-lateral decortication was performed at L4-5 L5- S1 level until bleeding cortical bone was identified. The remaining bone grafting material was placed into the L4-5 L5-S1 posterior lateral gutter he order to accomplish posterolateral fusion at the L4-5 L5-S1 level. Using the double C-arm technique, pedicle screws were placed into the L4-L5 and S1 pedicles bilaterally. This was done by placing the Jamshidi needle into the pedicles, then placing the guidewires over the Jamshidi needle, and finally placing the cannulated screws over the guidewires bilaterally. After the pedicle screws were placed, 2 titanium rods was locked into the heads of the pedicle screws using locking caps and torque limiting screwdriver. After all the hardware was placed, and confirmed with AP and lateral C-arm imaging, the wound was then irrigated with sterile normal saline and packed with Ray-Preston gauze for 3 min to accomplish hemostasis. After the gauze was removed the deep fascia was closed with #1 Vicryl suture. The subcutaneous layer was closed with 2-0 Vicryl. The skin was closed with skin rigoberto. Patient tolerated the procedure well. There were no complications. Complications: none Post-operative Condition: stable Disposition: PACU Plan for aftercare: Admit to inpatient hospital
[2020-12-21] MEDS: HYDROMORPHONE 2 MG INJ IV ×2 (12:11→12:25)
--- NOTE | 2020-12-21 12:14 | SUR.PHASEI ---
Pt arrived to PACU from OR oral airway in along with chin lift needed for airway patency. Dr Muller instructed to use 1/2 doses for narcotics due to RR going down to 4/min after last 50mcg of Fentanyl given. Report to Jazmyn.
--- NOTE | 2020-12-21 12:24 | SUR.PHASEI ---
Dr Louis notified by Keri White RN of patient left foot with very mild weakness with flexion. No action at this time.
[2020-12-21] MEDS: OXYCODONE/ACETAMINOPHEN 5/325 TABLET 1 TAB PO (12:40)
--- NOTE | 2020-12-21 12:42 | SUR.PHASEI ---
Right hip allevyn dressing clean dry and intact. No drainage. Quarter size scab intact with pink skin surrounding intact.
--- NOTE | 2020-12-21 14:33 | SUR.PHASEI ---
1325. Late Entry. Pt transfered to room 214 via bed on @L oxygen. Handoff at bedside to Marlys Bruno RN. Dressing evaluated. Bed in low position. Call light in reach.
[2020-12-21] MEDS: ACETAMINOPHEN 325 MG TABLET 650 MG PO (14:49)
[2020-12-21] MEDS: OXYCODONE IR 5 MG TABLET 10 MG PO ×3 (14:49→21:13)
[2020-12-21] MEDS: hydrOXYzine pamoate 25 MG CAPSULE PO ×2 (14:49→21:14)
[2020-12-21] MEDS: PREGABALIN 75 MG CAPSULE PO ×2 (14:49→21:14)
[2020-12-21] MEDS: SODIUM CHLORIDE 0.9% 1,000 ML 100 ML IV (16:52)
[2020-12-21] MEDS: SENNOSIDES 8.6 MG TABLET 17.2 MG PO (21:14)
[2020-12-21] MEDS: DIVALPROEX DR 250 MG TABLET PO (21:14)
[2020-12-21] MEDS: DOCUSATE 100 MG CAPSULE PO (21:14)
[2020-12-21] MEDS: TIMOLOL 0.5% OPHTH 1 DROPS EYE-BOTH (21:16)
[2020-12-21] MEDS: LATANOPROST 0.005% OPHTH 2.5 ML 1 DROPS EYE-BOTH (21:16)
[2020-12-22 00:32] VITALS: BP 117/60; PULSE 75; RESP 18; TEMP 36.6; O2SAT 98
[2020-12-22] MEDS: SODIUM CHLORIDE 0.9% 1,000 ML 100 ML IV (03:26)
[2020-12-22] MEDS: SUMAtriptan 25 MG TABLET 100 MG PO ×2 (03:29→17:36)
[2020-12-22] MEDS: PREGABALIN 75 MG CAPSULE PO ×3 (04:40→18:41)
[2020-12-22] MEDS: hydrOXYzine pamoate 25 MG CAPSULE PO ×2 (04:40→12:35)
[2020-12-22] MEDS: OXYCODONE IR 5 MG TABLET 10 MG PO ×4 (04:41→18:41)
[2020-12-22 04:45] VITALS: BP 123/65; PULSE 76; RESP 18; TEMP 36.4; O2SAT 99
[2020-12-22 05:57] LABS: Hematocrit 32.6 % (36-46); Hemoglobin 10.7 g/dL (12.0-16.0)
--- NOTE | 2020-12-22 08:17 | P.PN_ITS ---
Subjective Subjective Date Patient Seen: 12/22/20 Time Patient Seen: 08:17 Interval history: Patient states she is doing well overall and is in mild discomfort at rest. At this time patient denies fever, chills, nausea, chest pain, or shortness of breath. Patient reports good sensation throughout the bilateral lower extremities. Exam Vital Signs (past 8 hours): - 12/22/20 00:32 12/22/20 04:45 Temperature 97.8 F 97.6 F Pulse Rate 75 76 Respiratory Rate 18 18 Blood Pressure 117/60 123/65 Pulse Oximetry 98 99 Oxygen Delivery Method Nasal Cannula Oxygen Flow Rate 0 Narrative Exam Narrative: 65-year-old female postop day 1. Patient is resting comfortably in bed, is in no acute distress, and is alert and oriented x3. Skin is warm and dry, and the skin surrounding the incision site is free of erythema, warmth, induration, or discharge. Dressing over the incision site is clean, dry, and intact. Good sensation appreciated throughout the bilateral lower extremities to light touch. Hip flexion performed bilaterally without difficulty or discomfort. Ankle dorsiflexion, plantar flexion, eversion, inversion performed bilaterally without difficulty or discomfort. DP pulses palpated bilaterally. Calves are soft nontender, negative Homans sign. No other signs of DVT apprec iated. Const General: cooperative, healthy appearing and comfortable Resp Effort & Inspection: normal respiratory effort and able to speak in complete sentences Skin General: no rashes or lesions noted Objective Labs Result Diagrams: 12/22/20 05:30 Labs: Laboratory Results - last 24 hr 12/22/20 05:30 Hgb 10.7 L Hct 32.6 L PFSH Medical History Arthritis Easy bruisability Glaucoma Surgical History History of bilateral cataract extraction History of eye surgery History of spinal fusion (01/2014) History of trabeculectomy Hx of cervical spine surgery (03/2001) Hx of tubal ligation Social History household members: none Smoking Status: Former smoker alcohol intake: current Assessment & Plan Post-op Postoperative Procedures: Procedures Operation Date: 06/23/21 07:45 Actual Procedures Side Surgeon p L4-5 TLIF, L5-S1 lumbar HWR, exploration of fusion, repeat laminectomy, reinsertion of hardware L4-S1 PSF w. instrumentation Kalin Louis MD Postoperative day: 1 Postoperative status: doing well Postoperative plan: ambulate Postoperative plan narrative: Patient is to work on ambulation with physical therapy with the assistance of a front wheeled walker. Current pain management regimen is to be continued as it is adequately controlled the patient's pain level. Patient is to avoid bending, twisting, or lifting in excess of 10 lb. Patient expresses has tense about being discharged home today as it is anticipated that she will have difficulty with physical therapy. Time Spent With Patient Time with patient: less than 15 minutes
--- NOTE | 2020-12-22 08:56 | CM.DANOTE ---
DCP: Case received, EMR reviewed and met with patient. Introduced self and role. Was able to obtain information from patient regarding her baseline activity status prior to hospitalization. DCP assessment completed with information currently available. Patient is a 65 year old female who admitted yesterday morning to the care of the orthopedist team. PCP: Dr. Serrano. Payer: confirmed: [facility]. Patient came to the hospital via private vehicle for a surgical procedure. She had a L4-5 posteolateral and posterior fusion. Patient has history of spinal stenosis. Met with patient in her room. She was awake, alert and oriented. She resides in [place]. She lives alone, ut her daughter lives in the area as well. Patient is independent at her baseline, uses a cane if needed. She is still driving. She mentioned that her daughter will be able to assist her but will not be there all of the time. Reminded patient that Medicare does not cover caregivers, but can with home health. She will be working with the therapy team as well. P: DCP to continue to follow for any needs. Will see how she does with P.T. Lauryn Suresh RN/Historic Preservationist
[2020-12-22] MEDS: ACETAMINOPHEN 325 MG TABLET 650 MG PO (09:17)
[2020-12-22] MEDS: OXYBUTYNIN 5 MG ER TAB 10 MG PO (09:17)
[2020-12-22] MEDS: PARoxetine 20 MG TABLET 40 MG PO (09:18)
[2020-12-22] MEDS: DIVALPROEX DR 250 MG TABLET PO ×2 (09:18→18:41)
[2020-12-22] MEDS: DOCUSATE 100 MG CAPSULE PO ×2 (09:19→18:41)
[2020-12-22 11:00] VITALS: BP 95/75; PULSE 73; RESP 16; TEMP 36.7; O2SAT 98
--- NOTE | 2020-12-22 11:24 | PT.IIE ---
Current Diagnoses Cauda equina syndrome (12/21/20) Spinal stenosis, lumbar region without neurogenic claudication (12/21/20) Arthrodesis status (12/21/20) Surgery Performed Operation Date: 12/21/20 07:45 Actual Procedures p L4-5 TLIF, L5-S1 lumbar HWR, exploration of fusion, repeat laminectomy, reinsertion of hardware L4-S1 PSF w. instrumentation - Kalin Louis MD Surgical History (Last Reviewed 12/22/20 @ 08:19 by Mane Galloway PA-C) History of bilateral cataract extraction History of eye surgery History of spinal fusion (01/2014) History of trabeculectomy Hx of cervical spine surgery (03/2001) Hx of tubal ligation Medical History (Last Reviewed 12/22/20 @ 08:19 by Mane Galloway PA-C) Arthritis Easy bruisability Glaucoma Physical Therapy Inpatient Evaluation/Re-Eval M1 PT/OT-IP Prior Functional Status Start: 12/22/20 08:12 Freq: NEEDED Status: Active Protocol: Document 12/22/20 13:35 [facility] (Rec: 12/22/20 13:57 [facility] [id number]) Medical Review Prior Functional Status Communication Independent. Mobility and Gait Pt did not use a device prior and was just limited to walking 1/2 mile before she would hurt too much and had to stop. Activities of Daily Living and IADL's Increased time with ADl's and IADl needs due to her back pain. Social History Household Members none Living Arrangements Apartment/Condo Number of Floors (Floors) One Floor Number of Stairs To Enter/Railing? Pt lives in a townhouse with no step to enter. Home Environment Standard Height Toilet,Walk in Shower Home Equipment Front Wheel Walker,Raised Toilet Seat w/Armrests, Hospital Bed M2 PT-IP Current Condition Start: 12/22/20 08:12 Freq: NEEDED Status: Active Protocol: Document 12/22/20 11:24 [facility] (Rec: 12/22/20 15:51 D[facility] [id number]) Physical Therapy Current Condition Current Condition Evaluation Date 12/22/20 Treatment Diagnosis L4-5 TLIF and revision of L5- S1 TLIF, impaired mobility/ gait Onset Date 12/21/20 Precautions Lumbar Precautions Log Roll,No Twisting,Limit Bending,Lifting Restriction of 10 lbs,Gait Belt above Incisional Area Other Precautions hx of migraines, very sensitive to smells M3 PT-IP Subjective Start: 12/22/20 08:12 Freq: NEEDED Status: Active Protocol: Document 12/22/20 11:24 DLM (Rec: 12/22/20 15:47 [facility] [id number]) Subjective Physical Therapy Visit Type Type Initial Evaluation Visit Start Time 10:40 Visit Stop Time 11:24 Total Visit Minutes 44 Number of SCHOOL OFFICE ASSISTANT Visits 0 Physical Therapy Visit Comments Patient Comments Her legs feel weak this morning Patient Goals she wants to be able to go home Therapy Pain Assessment Pain When Pain Assessed During Mobility Pain Present Pain Present Pain Reported Location lower back Intensity 5 Scale Used Numeric (0 - 10) Description Aching,With Movement Pain Behaviors Guarding Pain Management Techniques Apply Cold,Re-positioning M4 PT-IP Mobility and Gait Start: 12/22/20 08:12 Freq: NEEDED Status: Active Protocol: Document 12/22/20 11:24 DLM (Rec: 12/22/20 15:47 [facility] [id number]) PT-Bed Mobility Assessment Rolling Type of Rolling Log Rolling,Roll to Right Level of Assist Minimal Assistance Sit to Supine Sit to Supine Standby Assistance Scooting Scooting to Edge of Bed Standby Assistance PT-Transfer Assessment Sit to and From Stand Sit to and from Stand Minimal Assistance,Moderate Assistance,Use of Upper Extremities Equipment Transfer Assistive Device Gait Belt,Front Wheeled Walker Transfers Transfer Destination Bed,Chair Transfer Technique Stand Step Pivot Transfer Ability Level of Assist Minimal Assistance,Moderate Assistance,Use of Upper Extremities Comments Mobility Comments she needs v.c. for use of UE's during sit-stand and for back safety during mobility. She demonstrates functional weakness of her legs in standing and during gait with intermittent knee buckling Gait Assessment Comments Gait Comments did not advance to gait this visit due to LE weakness, pt up to recliner this visit M5 PT-IP Objective Assessments Start: 12/22/20 08:12 Freq: NEEDED Status: Active Protocol: Document 12/22/20 11:24 DLM (Rec: 12/22/20 15:51 [facility] [id number]) Orientation Orientation/Cognition Level of Alertness Alert Orientation Name,Age,Birthday,Month,Date, Year,Day of Week,Place, Situation Language Function Ability No Deficits Noted Safety Awareness Understands Safety Issues Memory Description No Deficits Noted Gross Range of Motion Upper Extremity ROM Assessment Within Functional Limits Lower Extremity ROM Assessment Within Functional Limits Strength Upper Extremity Strength Assessment Within Functional Limits Lower Extremity Strength Assessment Bilaterally Impaired Hip hip flex right 3+/5, left 4/5 Knee knee ext right 4-/5, left 4/5 Ankle DF 5/5 Comments Strength Comments trunk ROM limited post-op spine surgery Coordination Assessment Gross Coordination Gross Coordination WNL Sensation Assessment Sensation Gross Sensation WNL Muscle Tone Muscle Tone WNL Yes M6 PT-IP Treatment Start: 12/22/20 08:12 Freq: NEEDED Status: Active Protocol: Document 12/22/20 11:24 DLM (Rec: 12/22/20 15:47 DL [id number]) Physical Therapy Treatment Exercises Exercises Ankle Pumps Education Education Provided Precautions,Post-Op Packet, Safety M7 PT-IP Assessment and Plan Start: 12/22/20 08:12 Freq: NEEDED Status: Active Protocol: Document 12/22/20 11:24 DLM (Rec: 12/22/20 15:47 DL [id number]) PT Summary Assessment and Plan Potential Rehabilitation Potential Good Status of Condition at Evaluation Evolving Summary Impairments Pain,ROM,Strength,Balance,Bed Mobility,Transfers,Gait, Activity Tolerance Goals Bed Mobility Goal Independent Transfer Goal Independent,Front Wheeled Walker Gait Goal Standby Assistance,Front Wheel Walker Gait Distance 100 feet Other Goals Demonstrate good awareness of her post-op spine precautions Days to Meet Goals 3 Frequency of Treatment Frequency Of Treatment Twice a Day Treatment Plan Physical Therapy Treatment Plan Bed Mobility Training,Transfer Training,Gait Training, Therapeutic Exercise,Balance Retraining,Post Op Education, Discharge Planning,Hot or Cold Pack,Neuromuscular Re-ed Recommendations To Nursing Amount of Assist Needed 1 Person Assist Discharge Recommendations PT Discharge Recommendations Home with Assistance,Home Health Transportation Needs at Discharge Private Vehicle
[2020-12-22] MEDS: TIMOLOL 0.5% OPHTH 1 DROPS EYE-BOTH ×2 (11:37→18:42)
[2020-12-22] MEDS: MEDROXYPROGESTERONE ACETATE 2.5 MG TABLET PO (11:37)
[2020-12-22] MEDS: estradioL 0.5 MG TABLET PO (11:37)
--- NOTE | 2020-12-22 12:29 | OT.IP.EVAL ---
Current Diagnoses Cauda equina syndrome (12/21/20) Spinal stenosis, lumbar region without neurogenic claudication (12/21/20) Arthrodesis status (12/21/20) Surgery Performed Operation Date: 12/21/20 07:45 Actual Procedures p L4-5 TLIF, L5-S1 lumbar HWR, exploration of fusion, repeat laminectomy, reinsertion of hardware L4-S1 PSF w. instrumentation - Kalin Louis MD Past Medical History (Last Reviewed 12/22/20 @ 08:19 by Mane Galloway PA-C) Arthritis Easy bruisability Glaucoma Surgical History (Last Reviewed 12/22/20 @ 08:19 by Mane Galloway PA-C) History of bilateral cataract extraction History of eye surgery History of spinal fusion (01/2014) History of trabeculectomy Hx of cervical spine surgery (03/2001) Hx of tubal ligation Occupational Therapy Inpatient Evaluation/Re-Eval M1 PT/OT-IP Prior Functional Status Start: 12/22/20 08:12 Freq: NEEDED Status: Active Protocol: Document 12/22/20 13:35 [facility] (Rec: 12/22/20 13:57 [facility] [id number]) Medical Review Prior Functional Status Communication Independent. Mobility and Gait Pt did not use a device prior and was just limited to walking 1/2 mile before she would hurt too much and had to stop. Activities of Daily Living and IADL's Increased time with ADl's and IADl needs due to her back pain. Social History Household Members none Living Arrangements Apartment/Condo Number of Floors (Floors) One Floor Number of Stairs To Enter/Railing? Pt lives in a townhouse with no step to enter. Home Environment Standard Height Toilet,Walk in Shower Home Equipment Front Wheel Walker,Raised Toilet Seat w/Armrests, Hospital Bed M2 OT-IP Current Condition Start: 12/22/20 13:28 Freq: Status: Active Protocol: Document 12/22/20 13:35 [facility] (Rec: 12/22/20 13:57 [facility] [id number]) Occupational Therapy Current Condition Current Condition Evaluation Date 12/22/20 Treatment Diagnosis S/p L4-5 TLIF, Ls-S1 lumabr HWR exploratory fusion, repeat laminectomy, re Diagnosis Onset Date 12/21/20 Post Operative Precautions Lumbar Precautions Log Roll,No Twisting,Limit Bending,Lifting Restriction of 10 lbs,Gait Belt above Incisional Area M3 OT- IP Subjective and Pain Start: 12/22/20 13:28 Freq: Status: Active Protocol: Document 12/22/20 13:35 [facility] (Rec: 12/22/20 13:57 [facility] [id number]) OT- Subjective Occupational Therapy Visit Type Type Initial Evaluation Visit Start Time 11:55 Visit Stop Time 12:29 Total Visit Minutes 34 Occupational Therapy Visit Comments Patient Comments Pt agreed to do OT eval. Notified nursing of pt wanting pain medications and that her catheter bag needed to be emptied. Patient/Caregiver Goals To go home. OT Pain Assessment Pain When Pain Assessed At Rest Pain Present Pain Present Pain Reported Location lower legs Intensity 6 Scale Used Numeric (0 - 10) M4 OT- IP ADL's Start: 12/22/20 13:28 Freq: Status: Active Protocol: Document 12/22/20 13:35 [facility] (Rec: 12/22/20 13:57 [facility] [id number]) OT [id number] Comments OT Self-Feeding Comments Not at meal time. OT ADL-Grooming General Evaluation Grooming Ability Standby Assistance Areas Needing Assistance Retrieving/Set-up of Grooming Items Comments OT Grooming Comments Educated pt if standing for oral care best to spit into a cup to best follow her back precautions. OT ADL-Oral Care General Eval Oral Care Ability Independent OT ADL-Dressing General Eval Lower Body Dressing Ability Maximum Assistance Comments OT Dressing Comments Initiated education of LB dressing equipment to help increase her independence with LB dressing needs with use of granite polisher, sock aid, and shoe horn. OT ADL-Toileting General Evaluation Toileting Ability Total Assistance Comments OT Toileting Comments Black in place. OT ADL-Bathing Comments OT Bathing Comments NOt performed. Pt states has a built in seat in her shower, but most likely will need a shower chair. M5 OT- IP IADL's Start: 12/22/20 13:28 Freq: Status: Active Protocol: Document 12/22/20 13:35 [facility] (Rec: 12/22/20 13:57 [facility] [id number]) OT-Instrumental Activities of Daily Living Home Safety Awareness Awareness of Need for Assistance at Home Good Awareness Ability to Problem Solve Emergency Able to Problem Solve Situations Medication Management Medication Management Comments Pt a little groggy and best for her daughter to provide supervision /assist for her needs. Money Management Money Management Comments Pt a little groggy and best for her daughter to provide supervision /assist for her needs. Meal Preparation Meal Preparation Comments Pt a little groggy and best for her daughter to provide supervision /assist for her needs. Surgical Device Sales Representative Surgical Device Sales Representative Comments Pt a little groggy and best for her daughter to provide supervision /assist for her needs. M6 OT- IP Functional Cognition Start: 12/22/20 13:28 Freq: Status: Active Protocol: Document 12/22/20 13:35 [facility] (Rec: 12/22/20 13:57 [facility] [id number]) Cognitive Factors Limiting Selfcare Function Cognitive Ability Level of Alertness Alert Patient Orientation Name,Place,Situation Attention Span Ability Capable of Focused Attention, Capable of Sustained Attention Ability to Follow Commands Able to Follow One Step Commands Safety Awareness Decreased Ability to Apply Precautions Cognitive Comments Cognitive Assessment Comments Pt able to follow one step directions for mobility and ADL needs. Pt needing cues for safety to use her hands to help scoot forward in the recliner and shift her weight side to stand. VC to push up from the armrest of the recliner to assist to stand. OT- Vision and Hearing OT- Hearing Assessment OT- Hearing Assessment WFL OT- Vision Assessment Visual Acuity Glasses All The Time M7 OT- IP Mobility and Balance Start: 12/22/20 13:28 Freq: Status: Active Protocol: Document 12/22/20 13:35 [facility] (Rec: 12/22/20 13:57 [facility] [id number]) OT-Transfer Assessment Sit to and From Stand Sit to and from Stand Moderate Assistance,Maximum Assistance,1 Person Assistance Comments Mobility Comments Pt not wanting to get back to the bed at the time and just agreeable to stand. MOD/MAX A to stand to FWW. Pt unsteady, needing lots of cues to straighten her legs her legs felt like they were giving out . MODA to help slow her descent down to the recliner. Pt given ice pack for her back . OT- Gait Assessment Comments Gait Ability Comments Transfer only at this time. OT- Balance Assessment Sitting Balance and Reactions Static Sitting Balance Ability Normal Dynamic Sitting Balance Ability Good Standing Balance and Reactions Static Standing Balance Ability Poor M8 OT- IP Objective Assessments Start: 12/22/20 13:28 Freq: Status: Active Protocol: Document 12/22/20 13:35 [facility] (Rec: 12/22/20 13:57 [facility] [id number]) OT Gross Range of Motion Upper Extremity Range of Motion Assessment Within Functional Limits OT- Coordination Assessment Comments Coordination Comments Pt having difficulty to kelli socks over the sock aid. OT-Muscle Tone Assessment Muscle Tone WNL Yes M9 OT- IP Assessment and Plan Start: 12/22/20 13:28 Freq: Status: Active Protocol: Document 12/22/20 13:35 [facility] (Rec: 12/22/20 13:57 [facility] [id number]) OT Summary Assessment and Plan Potential Rehabilitation Potential Good Analytic Complexity at Evaluation Moderate Summary OT Impairments Pain,Balance,Functional Cognition,Functional Mobility, Grooming,Dressing,Toileting, Bathing,Toilet Transfers, Shower Transfers,Activity Tolerance Progress Towards Goals Slow Progress due to Pain,Slow Progress due to Medical Issues Assessment Summary Pt MIN complexity and main barriers are pain, decreased balance,strength, and now needing extensive assist for ADl and mobility needs. Pt is very motivated to go home and states that her daughter will be able to stay longer with her if needed. Pt legs tend to buckle when standing at this time. Pending progress and caregiver training home versus possible SNF. Goals Grooming Goal Independent Dressing Goal Independent Toileting Goal Independent Bathing Goal Independent Toilet Transfer Goal Independent Shower Transfer Goal Independent Patient/Caregiver Education Goal Demonstrate Post-Op Precautions,Caregiver Independent Assisting Patient Days to Meet Goals 10 Frequency of Treatment Frequency Of Treatment Once a Day Treatment Plan OT Treatment Plan ADL Training,Functional Cognition Training,Functional Mobility,Patient/Family Education,Discharge Planning Other Treatment Recommendations and Next Standing at sink for grooming Treatment Focus needs. Discharge Recommendations OT Discharge Recommendations Home vs SNF Home Equipment Needs shower chair Transportation Needs at Discharge Private Vehicle,Wheelchair/ Cabulance
--- NOTE | 2020-12-22 15:25 | PT.IPTN ---
Current Diagnoses Cauda equina syndrome (12/21/20) Spinal stenosis, lumbar region without neurogenic claudication (12/21/20) Arthrodesis status (12/21/20) Surgery Performed Operation Date: 12/21/20 07:45 Actual Procedures p L4-5 TLIF, L5-S1 lumbar HWR, exploration of fusion, repeat laminectomy, reinsertion of hardware L4-S1 PSF w. instrumentation - Kalin Louis MD Physical Therapy Treatment Note M2 PT-IP Current Condition Start: 12/22/20 08:12 Freq: NEEDED Status: Active Protocol: Document 12/22/20 11:24 [facility] (Rec: 12/22/20 15:51 [facility] [id number]) Physical Therapy Current Condition Current Condition Evaluation Date 12/22/20 Treatment Diagnosis L4-5 TLIF and revision of L5- S1 TLIF, impaired mobility/ gait Onset Date 12/21/20 Precautions Lumbar Precautions Log Roll,No Twisting,Limit Bending,Lifting Restriction of 10 lbs,Gait Belt above Incisional Area Other Precautions hx of migraines, very sensative to smells M3 PT-IP Subjective Start: 12/22/20 08:12 Freq: NEEDED Status: Active Protocol: Document 12/22/20 15:25 [facility] (Rec: 12/22/20 16:00 [facility] [id number]) Subjective Physical Therapy Visit Type Type Treatment Note Visit Start Time 14:57 Visit Stop Time 15:25 Total Visit Minutes 28 Number of BANK MESSENGER Visits 0 Physical Therapy Visit Comments Patient Comments Her legs feel a little stronger this afternoon. She does not want to go to SNF Patient Goals she wants to be able to go home Therapy Pain Assessment Pain When Pain Assessed During Mobility Pain Present Pain Present Pain Reported Location lower back Intensity 5 Scale Used Numeric (0 - 10) Description Aching,With Movement Pain Behaviors Guarding Pain Management Techniques Apply Cold,Re-positioning M4 PT-IP Mobility and Gait Start: 12/22/20 08:12 Freq: NEEDED Status: Active Protocol: Document 12/22/20 15:25 [facility] (Rec: 12/22/20 16:00 [facility] [id number]) PT-Bed Mobility Assessment Rolling Type of Rolling Log Rolling,Roll to Right Level of Assist Standby Assistance Supine to Sit Supine to Sit Standby Assistance Scooting Scooting to Edge of Bed Standby Assistance PT-Transfer Assessment Sit to and From Stand Sit to and from Stand Contact Guard Assistance, Minimal Assistance,Use of Upper Extremities Equipment Transfer Assistive Device Gait Belt,Front Wheeled Walker Transfers Transfer Destination Bed,Chair Transfer Technique Stand Step Pivot Transfer Ability Level of Assist Contact Guard Assistance, Minimal Assistance Comments Mobility Comments she needs v.c. for use of UE's during sit-stand and for back safety during mobility. She demonstrates functional weakness of her legs in standing and during gait with intermittent knee buckling Gait Assessment Gait Gait Assistance Required: Contact Guard Assist,Minimum Assistance Distance (Feet) 10 Assistive Devices Assistive Device Gait Belt,Front Wheeled Walker Gait Deviations General Gait Pattern Decreased Stride Length Factors Limiting Gait Function Factors Limiting Gait Function Decreased Activity Tolerance, Decreased Strength,Pain Comments Gait Comments she demonstrates improved LE strength with improved weight bearing on LE's for gait, no buckling noted, gait pace is slow M5 PT-IP Objective Assessments Start: 12/22/20 08:12 Freq: NEEDED Status: Active Protocol: Document 12/22/20 11:24 [facility] (Rec: 12/22/20 15:51 [facility] [id number]) Orientation Orientation/Cognition Level of Alertness Alert Orientation Name,Age,Birthday,Month,Date, Year,Day of Week,Place, Situation Language Function Ability No Deficits Noted Safety Awareness Understands Safety Issues Memory Description No Deficits Noted Gross Range of Motion Upper Extremity ROM Assessment Within Functional Limits Lower Extremity ROM Assessment Within Functional Limits Strength Upper Extremity Strength Assessment Within Functional Limits Lower Extremity Strength Assessment Bilaterally Impaired Hip hip flex right 3+/5, left 4/5 Knee knee ext right 4-/5, left 4/5 Ankle DF 5/5 Comments Strength Comments trunk ROM limited post-op spine surgery Coordination Assessment Gross Coordination Gross Coordination WNL Sensation Assessment Sensation Gross Sensation WNL Muscle Tone Muscle Tone WNL Yes M6 PT-IP Treatment Start: 12/22/20 08:12 Freq: NEEDED Status: Active Protocol: Document 12/22/20 15:25 [facility] (Rec: 12/22/20 16:00 D[facility] [id number]) Physical Therapy Treatment Exercises Exercises Ankle Pumps Education Education Provided Precautions,Safety M7 PT-IP Assessment and Plan Start: 12/22/20 08:12 Freq: NEEDED Status: Active Protocol: Document 12/22/20 15:25 [facility] (Rec: 12/22/20 16:00 D[facility] [id number]) PT Summary Assessment and Plan Potential Rehabilitation Potential Good Status of Condition at Evaluation Evolving Summary Impairments Pain,ROM,Strength,Balance,Bed Mobility,Transfers,Gait, Activity Tolerance Progress Towards Goals Slow Progress due to Activity Tolerance,Slow Progress - Other Assessment Summary Lyudmila has been up in the recliner since AM visit and is ready to return to bed. She presents with slowly improving LE weakness in standing and gait that is limiting her progress today. She is motivated to return home at disharge. She continues to have a constant headache that has persisted all day. Will work towards her goal of discharge home but her LE strength and gait need to continue to improve to be safe to return home with her Daughter to help her. Goals Bed Mobility Goal Independent Transfer Goal Independent,Front Wheeled Walker Gait Goal Standby Assistance,Front Wheel Walker Gait Distance 100 feet Other Goals Demonstrate good awareness of her post-op spine precautions Days to Meet Goals 3 Frequency of Treatment Frequency Of Treatment Twice a Day Treatment Plan Physical Therapy Treatment Plan Bed Mobility Training,Transfer Training,Gait Training, Therapeutic Exercise,Balance Retraining,Post Op Education, Discharge Planning,Hot or Cold Pack,Neuromuscular Re-ed Recommendations To Nursing Amount of Assist Needed 1 Person Assist Discharge Recommendations PT Discharge Recommendations Home with Assistance,Home Health Transportation Needs at Discharge Private Vehicle
[2020-12-22 15:40] VITALS: BP 122/59; PULSE 83; RESP 16; TEMP 36.9
[2020-12-22] MEDS: SENNOSIDES 8.6 MG TABLET 17.2 MG PO (18:41)
[2020-12-22] MEDS: LATANOPROST 0.005% OPHTH 2.5 ML 1 DROPS EYE-BOTH (18:42)
[2020-12-22 19:34] VITALS: BP 138/80; PULSE 86; RESP 17; TEMP 37.3
[2020-12-22] MEDS: TIZANIDINE 4 MG TABLET 8 MG PO (20:51)
[2020-12-22] MEDS: ZOLPIDEM 5 MG TABLET PO (20:52)
[2020-12-23] VITALS (7 sets, daily range): BP systolic 108–138; BP diastolic 59–79; PULSE 74–85; RESP 16–18; TEMP 36.4–37.4; O2SAT 95–97
[2020-12-23] MEDS: ACETAMINOPHEN 325 MG TABLET 650 MG PO ×3 (00:18→22:17)
[2020-12-23] MEDS: OXYCODONE IR 5 MG TABLET 10 MG PO ×5 (00:21→22:18)
[2020-12-23] MEDS: SUMAtriptan 25 MG TABLET 100 MG PO (03:54)
[2020-12-23] MEDS: PREGABALIN 75 MG CAPSULE PO ×3 (06:25→22:04)
--- NOTE | 2020-12-23 08:11 | P.PN_ITS ---
Subjective Subjective Date Patient Seen: 12/23/20 Time Patient Seen: 08:11 Interval history: Patient reports her back pain is improving. She has been having trouble with her migraines. She only ambulated in the hospital room with therapy yesterday. Exam Vital Signs (past 8 hours): - 12/23/20 00:18 12/23/20 00:21 12/23/20 03:38 Temperature 99.1 F 99.1 F 99.3 F Pulse Rate 80 Respiratory Rate 18 Blood Pressure 108/61 Pulse Oximetry 96 12/23/20 07:00 Temperature 98 F Pulse Rate 82 Respiratory Rate 18 Blood Pressure 119/67 Pulse Oximetry 97 Oxygen Delivery Method Room Air Oxygen Flow Rate 0 Narrative Exam Narrative: Spinal wound is dressed with no drainage on the bandage. Calves are soft. Light touch and motion are intact in both lower extremities. Objective Labs Result Diagrams: 12/22/20 05:30 [facility] Medical History Arthritis Easy bruisability Glaucoma Surgical History History of bilateral cataract extraction History of eye surgery History of spinal fusion (01/2014) History of trabeculectomy Hx of cervical spine surgery (03/2001) Hx of tubal ligation Social History household members: none Smoking Status: Former smoker alcohol intake: current Assessment & Plan Post-op Postoperative Procedures: Procedures Operation Date: 12/21/20 07:45 Actual Procedures Side Surgeon p L4-5 TLIF, L5-S1 lumbar HWR, exploration of fusion, repeat laminectomy, reinsertion of hardware L4-S1 PSF w. instrumentation Kalin Louis MD Postoperative day: 2 Postoperative status: doing well Postoperative status narrative: She is improving postoperatively. Her migraines are giving her trouble but these are being treated appropriately. Postoperative plan: routine post-op care and ambulate Postoperative plan narrative: We will continue with therapy today. It is likely she will be able to discharge home tomorrow. She is requesting home health and we will order that evaluation. Time Spent With Patient Time with patient: less than 15 minutes
[2020-12-23] MEDS: DIVALPROEX DR 250 MG TABLET PO ×2 (10:00→22:04)
[2020-12-23] MEDS: DOCUSATE 100 MG CAPSULE PO ×2 (10:00→22:04)
[2020-12-23] MEDS: PARoxetine 20 MG TABLET 40 MG PO (10:00)
[2020-12-23] MEDS: OXYBUTYNIN 5 MG ER TAB 10 MG PO (10:00)
[2020-12-23] MEDS: estradioL 0.5 MG TABLET PO (10:25)
[2020-12-23] MEDS: MEDROXYPROGESTERONE ACETATE 2.5 MG TABLET PO (10:25)
[2020-12-23] MEDS: TIMOLOL 0.5% OPHTH 1 DROPS EYE-BOTH ×2 (10:26→22:04)
--- NOTE | 2020-12-23 11:25 | PT.IPTN ---
Current Diagnoses Cauda equina syndrome (12/21/20) Spinal stenosis, lumbar region without neurogenic claudication (12/21/20) Arthrodesis status (12/21/20) Surgery Performed Operation Date: 12/21/20 07:45 Actual Procedures p L4-5 TLIF, L5-S1 lumbar HWR, exploration of fusion, repeat laminectomy, reinsertion of hardware L4-S1 PSF w. madie - Kalin Louis MD Physical Therapy Treatment Note M2 PT-IP Current Condition Start: 12/22/20 08:12 Freq: NEEDED Status: Active Protocol: Document 12/22/20 11:24 [facility] (Rec: 12/22/20 15:51 DLM [id number]) Physical Therapy Current Condition Current Condition Evaluation Date 12/22/20 Treatment Diagnosis L4-5 TLIF and revision of L5- S1 TLIF, impaired mobility/ gait Onset Date 12/21/20 Precautions Lumbar Precautions Log Roll,No Twisting,Limit Bending,Lifting Restriction of 10 lbs,Gait Belt above Incisional Area Other Precautions hx of migraines, very sensative to smells M3 PT-IP Subjective Start: 12/22/20 08:12 Freq: NEEDED Status: Active Protocol: Document 12/23/20 10:54 [facility] (Rec: 12/23/20 12:25 [facility] [id number]) Subjective Physical Therapy Visit Type Type Treatment Note Visit Start Time 10:54 Visit Stop Time 11:25 Total Visit Minutes 32 Number of REMOTE SENSING SCIENTIST Visits 1 Physical Therapy Visit Comments Patient Comments Pt willing to get up for PT. Patient Goals she wants to be able to go home Therapy Pain Assessment Pain When Pain Assessed During Mobility Pain Present Pain Present Pain Reported Location lower back Intensity 6 Scale Used Numeric (0 - 10) Pain Behaviors Guarding Pain Management Techniques Apply Cold,Re-positioning M4 PT-IP Mobility and Gait Start: 12/22/20 08:12 Freq: NEEDED Status: Active Protocol: Document 12/23/20 10:54 [facility] (Rec: 12/23/20 12:25 [facility] [id number]) PT-Bed Mobility Assessment Rolling Type of Rolling Log Rolling,Roll to Right Level of Assist Minimal Assistance Supine to Sit Supine to Sit Minimal Assistance,1 Person Assistance Scooting Scooting to Edge of Bed Standby Assistance PT-Transfer Assessment Sit to and From Stand Sit to and from Stand Contact Guard Assistance, Minimal Assistance,Use of Upper Extremities Equipment Transfer Assistive Device Gait Belt,Front Wheeled Walker Transfers Transfer Destination Chair Transfer Technique Stand Step Pivot Transfer Ability Level of Assist Contact Guard Assistance, Minimal Assistance Comments Mobility Comments Pt recalled 2/3 back precautions and verbal cues during ambulation to prevent twisting during turns. Pt requires increased time as pt ambulates very slowly and requires cues to prevent hitting obstacles in room. Gait Assessment Gait Gait Assistance Required: Contact Guard Assist,1 Person Assist Distance (Feet) 40 Assistive Devices Assistive Device Gait Belt,Front Wheeled Walker Gait Deviations General Gait Pattern Decreased Stride Length Factors Limiting Gait Function Factors Limiting Gait Function Decreased Activity Tolerance, Decreased Strength,Pain Comments Gait Comments Pt with no buckling during gait able to bear wt through BLE's. M5 PT-IP Objective Assessments Start: 12/22/20 08:12 Freq: NEEDED Status: Active Protocol: Document 12/22/20 11:24 [facility] (Rec: 12/22/20 15:51 DLM [id number]) Orientation Orientation/Cognition Level of Alertness Alert Orientation Name,Age,Birthday,Month,Date, Year,Day of Week,Place, Situation Language Function Ability No Deficits Noted Safety Awareness Understands Safety Issues Memory Description No Deficits Noted Gross Range of Motion Upper Extremity ROM Assessment Within Functional Limits Lower Extremity ROM Assessment Within Functional Limits Strength Upper Extremity Strength Assessment Within Functional Limits Lower Extremity Strength Assessment Bilaterally Impaired Hip hip flex right 3+/5, left 4/5 Knee knee ext right 4-/5, left 4/5 Ankle DF 5/5 Comments Strength Comments trunk ROM limited post-op spine surgery Coordination Assessment Gross Coordination Gross Coordination WNL Sensation Assessment Sensation Gross Sensation WNL Muscle Tone Muscle Tone WNL Yes M6 PT-IP Treatment Start: 12/22/20 08:12 Freq: NEEDED Status: Active Protocol: Document 12/22/20 15:25 DLM (Rec: 12/22/20 16:00 DLM [id number]) Physical Therapy Treatment Exercises Exercises Ankle Pumps Education Education Provided Precautions,Safety M7 PT-IP Assessment and Plan Start: 12/22/20 08:12 Freq: NEEDED Status: Active Protocol: Document 12/23/20 10:54 [facility] (Rec: 12/23/20 12:25 [facility] [id number]) PT Summary Assessment and Plan Potential Rehabilitation Potential Good Status of Condition at Evaluation Evolving Summary Impairments Pain,ROM,Strength,Balance,Bed Mobility,Transfers,Gait, Activity Tolerance Progress Towards Goals Slow Progress due to Activity Tolerance,Slow Progress - Other Assessment Summary Pt requires Min A for supine to sit and sit-stand. Pt moves slowly during gait and requiring cues for safety with obstacles in room. Pt will contact daughter for CG training tomorrow. Will confirm time with pt at pm tx. Goals Bed Mobility Goal Independent Transfer Goal Independent,Front Wheeled Walker Gait Goal Standby Assistance,Front Wheel Walker Gait Distance 100 feet Other Goals Demonstrate good awareness of her post-op spine precautions Days to Meet Goals 3 Frequency of Treatment Frequency Of Treatment Twice a Day Treatment Plan Physical Therapy Treatment Plan Bed Mobility Training,Transfer Training,Gait Training, Therapeutic Exercise,Balance Retraining,Post Op Education, Discharge Planning,Hot or Cold Pack,Neuromuscular Re-ed Recommendations To Nursing Amount of Assist Needed 1 Person Assist Discharge Recommendations PT Discharge Recommendations Home with Assistance,Home Health Transportation Needs at Discharge Private Vehicle
--- NOTE | 2020-12-23 12:14 | OT.IP.TRT ---
Current Diagnoses Cauda equina syndrome (12/21/20) Spinal stenosis, lumbar region without neurogenic claudication (12/21/20) Arthrodesis status (12/21/20) Surgery Performed Operation Date: 12/21/20 07:45 Actual Procedures p L4-5 TLIF, L5-S1 lumbar HWR, exploration of fusion, repeat laminectomy, reinsertion of hardware L4-S1 PSF w. madie - Kalin Louis MD Occupational Therapy Treatment Note M2 OT-IP Current Condition Start: 12/22/20 13:28 Freq: Status: Active Protocol: Document 12/22/20 13:35 [facility] (Rec: 12/22/20 13:57 [facility] [id number]) Occupational Therapy Current Condition Current Condition Evaluation Date 12/22/20 Treatment Diagnosis S/p L4-5 TLIF, Ls-S1 lumabr HWR exploratory fusion, repeat laminectomy, re Diagnosis Onset Date 12/21/20 Post Operative Precautions Lumbar Precautions Log Roll,No Twisting,Limit Bending,Lifting Restriction of 10 lbs,Gait Belt above Incisional Area M3 OT- IP Subjective and Pain Start: 12/22/20 13:28 Freq: Status: Active Protocol: Document 12/23/20 12:24 [facility] (Rec: 12/23/20 12:41 [facility] [id number]) OT- Subjective Occupational Therapy Visit Type Type Treatment Note Visit Start Time 11:35 Visit Stop Time 12:14 Total Visit Minutes 39 Occupational Therapy Visit Comments Patient Comments Pt agreed to work with OT. Nursing notified of pt's decreased initiation and needing increased time to process movements while doing ADl's and mobility needs. Patient/Caregiver Goals To go home. OT Pain Assessment Pain When Pain Assessed At Rest Pain Present Pain Present Pain Reported Location lower legs Intensity 7 Scale Used Numeric (0 - 10) M4 OT- IP ADL's Start: 12/22/20 13:28 Freq: Status: Active Protocol: Document 12/23/20 12:24 [facility] (Rec: 12/23/20 12:41 [facility] [id number]) OT [id number] Comments OT Self-Feeding Comments Not at meal time. OT ADL-Grooming General Evaluation Grooming Ability Standby Assistance Areas Needing Assistance Retrieving/Set-up of Grooming Items Comments OT Grooming Comments While seated, just completed when OT came in to see the pt. OT ADL-Dressing General Eval Lower Body Dressing Ability Moderate Assistance Areas Needing Assistance Socks Assistive Devices Dressing Assistive Devices [employer],Sock Aid Comments OT Dressing Comments Issued LB dressing equipment for pt and pt still needing MODA vc and assist to complete . Pt slow to respond and needing extra time to figure out how to use the sock aid. Pt insists that she does not feel groggy or that she is not thinking well. To notify nursing. Suggested if going home, best for her daughter to be available for 21/01 assist and stay with her. OT ADL-Toileting General Evaluation Toileting Ability Standby Assistance Comments OT Toileting Comments Black in place. Able to practice sitting to the [facility] over toilet to simulate RTS with handles. Pt needing cues to line up before sitting down . OT ADL-Bathing Comments OT Bathing Comments To perform in OT tomorrow. M6 OT- IP Functional Cognition Start: 12/22/20 13:28 Freq: Status: Active Protocol: Document 12/23/20 12:24 [facility] (Rec: 12/23/20 12:41 [facility] [id number]) Cognitive Factors Limiting Selfcare Function Cognitive Ability Level of Alertness Alert Patient Orientation Name,Place,Situation Attention Span Ability Capable of Focused Attention, Capable of Sustained Attention Ability to Follow Commands Able to Follow One Step Commands Memory Description Short Term Impaired Cognitive Comments Cognitive Assessment Comments Pt still needing lots of VC to incorporate back precautions for needs. At times pt is slow to response and think thing through during ADL's. Pt having trouble seeing so able to clear her glasses and trun on the light which helped pt. Vc for safety awareness to reach back with her hand before sitting. M7 OT- IP Mobility and Balance Start: 12/22/20 13:28 Freq: Status: Active Protocol: Document 12/23/20 12:24 [facility] (Rec: 12/23/20 12:41 [facility] [id number]) OT-Transfer Assessment Sit to and From Stand Sit to and from Stand Contact Guard Assistance,1 Person Assistance Transfers Transfer Ability Contact Guard Assistance,1 Person Assistance Technique Transfer Destination Chair,Toilet Transfer Technique Stand Step Pivot Devices Transfer Assistive Devices Gait Belt,Front Wheeled Walker Comments Mobility Comments Much improved today to stand CGA to FWW. Pt having difficulty to steer the FWW and bumping into objects. OT- Gait Assessment Comments Gait Ability Comments CGA with FWW in the room. OT- Balance Assessment Sitting Balance and Reactions Static Sitting Balance Ability Normal Dynamic Sitting Balance Ability Good Standing Balance and Reactions Static Standing Balance Ability Fair Comments Other Balance Tests/Deviations/Treatment Pt tend to lean slight : posteriorly and to the left while walking with FWW. M8 OT- IP Objective Assessments Start: 12/22/20 13:28 Freq: Status: Active Protocol: Document 12/22/20 13:35 [facility] (Rec: 12/22/20 13:57 [facility] [id number]) OT Gross Range of Motion Upper Extremity Range of Motion Assessment Within Functional Limits OT- Coordination Assessment Comments Coordination Comments Pt having difficulty to kelli socks over the sock aid. OT-Muscle Tone Assessment Muscle Tone WNL Yes M9 OT- IP Assessment and Plan Start: 12/22/20 13:28 Freq: Status: Active Protocol: Document 12/23/20 12:24 [facility] (Rec: 12/23/20 12:41 [facility] [id number]) OT Summary Assessment and Plan Potential Rehabilitation Potential Good Analytic Complexity at Evaluation Moderate Summary OT Impairments Pain,Balance,Functional Cognition,Functional Mobility, Grooming,Dressing,Toileting, Bathing,Toilet Transfers, Shower Transfers,Activity Tolerance Progress Towards Goals Slow Progress due to Pain,Slow Progress due to Medical Issues,Slow Progress due to Cognition Assessment Summary Pt needing less assist for mobility and ADl needs, however still needing lots of vc for safety and education of how to incorporate back precautions for needs. Pending caregiver training most likely pt to go home with 24/7 available assist versus short skilled rehab. Goals Grooming Goal Independent Dressing Goal Independent Toileting Goal Independent Bathing Goal Independent Toilet Transfer Goal Independent Shower Transfer Goal Independent Patient/Caregiver Education Goal Demonstrate Post-Op Precautions,Caregiver Independent Assisting Patient Days to Meet Goals 7 Frequency of Treatment Frequency Of Treatment Once a Day Treatment Plan OT Treatment Plan ADL Training,Functional Cognition Training,Functional Mobility,Patient/Family Education,Discharge Planning Other Treatment Recommendations and Next shower and caregiver training Treatment Focus Discharge Recommendations OT Discharge Recommendations Home with 24/7 Assist Available,Home Health Other Discharge Recommendations Possible short skilled rehab pending caregiver training. Home Equipment Needs shower chair Transportation Needs at Discharge Private Vehicle
--- NOTE | 2020-12-23 14:17 | PT.IPTN ---
Current Diagnoses Cauda equina syndrome (12/21/20) Spinal stenosis, lumbar region without neurogenic claudication (12/21/20) Arthrodesis status (12/21/20) Surgery Performed Operation Date: 12/21/20 07:45 Actual Procedures p L4-5 TLIF, L5-S1 lumbar HWR, exploration of fusion, repeat laminectomy, reinsertion of hardware L4-S1 PSF w. madie - Kalin Louis MD Physical Therapy Treatment Note M2 PT-IP Current Condition Start: 12/22/20 08:12 Freq: NEEDED Status: Active Protocol: Document 12/22/20 11:24 [facility] (Rec: 12/22/20 15:51 [facility] [id number]) Physical Therapy Current Condition Current Condition Evaluation Date 12/22/20 Treatment Diagnosis L4-5 TLIF and revision of L5- S1 TLIF, impaired mobility/ gait Onset Date 12/21/20 Precautions Lumbar Precautions Log Roll,No Twisting,Limit Bending,Lifting Restriction of 10 lbs,Gait Belt above Incisional Area Other Precautions hx of migraines, very sensative to smells M3 PT-IP Subjective Start: 12/22/20 08:12 Freq: NEEDED Status: Active Protocol: Document 12/23/20 13:54 [facility] (Rec: 12/23/20 15:49 [facility] [id number]) Subjective Physical Therapy Visit Type Type Treatment Note Visit Start Time 13:54 Visit Stop Time 14:17 Total Visit Minutes 23 Number of KITCHEN FOOD ASSEMBLER Visits 2 Physical Therapy Visit Comments Patient Comments Pt wanting to get back to bed. Patient Goals she wants to be able to go home Therapy Pain Assessment Pain When Pain Assessed During Mobility Pain Present Pain Present Pain Reported Location lower back Intensity 7 Scale Used Numeric (0 - 10) Pain Behaviors Guarding Pain Management Techniques Modification of Treatment,Re- positioning M4 PT-IP Mobility and Gait Start: 12/22/20 08:12 Freq: NEEDED Status: Active Protocol: Document 12/23/20 13:54 [facility] (Rec: 12/23/20 15:49 [facility] [id number]) PT-Bed Mobility Assessment Rolling Type of Rolling Log Rolling,Roll to Right Level of Assist Minimal Assistance Supine to Sit Supine to Sit Minimal Assistance,1 Person Assistance PT-Transfer Assessment Sit to and From Stand Sit to and from Stand Contact Guard Assistance,1 Person Assistance,Use of Upper Extremities Equipment Transfer Assistive Device Gait Belt,Front Wheeled Walker Transfers Transfer Destination Bed,Chair Transfer Technique Stand Step Pivot Transfer Ability Level of Assist Contact Guard Assistance,1 Person Assistance,Use of Upper Extremities Gait Assessment Gait Gait Assistance Required: Contact Guard Assist,1 Person Assist Distance (Feet) 40 Assistive Devices Assistive Device Gait Belt,Front Wheeled Walker Gait Deviations General Gait Pattern Decreased Stride Length Factors Limiting Gait Function Factors Limiting Gait Function Decreased Activity Tolerance, Decreased Strength,Pain Comments Gait Comments Pt with improved gait quality. M5 PT-IP Objective Assessments Start: 12/22/20 08:12 Freq: NEEDED Status: Active Protocol: Document 12/22/20 11:24 [facility] (Rec: 12/22/20 15:51 [facility] [id number]) Orientation Orientation/Cognition Level of Alertness Alert Orientation Name,Age,Birthday,Month,Date, Year,Day of Week,Place, Situation Language Function Ability No Deficits Noted Safety Awareness Understands Safety Issues Memory Description No Deficits Noted Gross Range of Motion Upper Extremity ROM Assessment Within Functional Limits Lower Extremity ROM Assessment Within Functional Limits Strength Upper Extremity Strength Assessment Within Functional Limits Lower Extremity Strength Assessment Bilaterally Impaired Hip hip flex right 3+/5, left 4/5 Knee knee ext right 4-/5, left 4/5 Ankle DF 5/5 Comments Strength Comments trunk ROM limited post-op spine surgery Coordination Assessment Gross Coordination Gross Coordination WNL Sensation Assessment Sensation Gross Sensation WNL Muscle Tone Muscle Tone WNL Yes M6 PT-IP Treatment Start: 12/22/20 08:12 Freq: NEEDED Status: Active Protocol: Document 12/22/20 15:25 [facility] (Rec: 12/22/20 16:00 [facility] [id number]) Physical Therapy Treatment Exercises Exercises Ankle Pumps Education Education Provided Precautions,Safety M7 PT-IP Assessment and Plan Start: 12/22/20 08:12 Freq: NEEDED Status: Active Protocol: Document 12/23/20 13:54 [facility] (Rec: 12/23/20 15:49 [facility] [id number]) PT Summary Assessment and Plan Potential Rehabilitation Potential Good Status of Condition at Evaluation Evolving Summary Impairments Pain,ROM,Strength,Balance,Bed Mobility,Transfers,Gait, Activity Tolerance Progress Towards Goals Slow Progress due to Pain,Slow Progress due to Activity Tolerance Assessment Summary Pt ambulated in saravia with improved gait quality. Pt requiring Min A of LE's onto bed and LR. Pt continues to move slowly but improved safety during gait. Pt daughter to come in for CG training tomorrow morning at 10:00 to train with PT/OT. Goals Bed Mobility Goal Independent Transfer Goal Independent,Front Wheeled Walker Gait Goal Standby Assistance,Front Wheel Walker Gait Distance 100 feet Other Goals Demonstrate good awareness of her post-op spine precautions Days to Meet Goals 3 Frequency of Treatment Frequency Of Treatment Twice a Day Treatment Plan Physical Therapy Treatment Plan Bed Mobility Training,Transfer Training,Gait Training, Therapeutic Exercise,Balance Retraining,Post Op Education, Discharge Planning,Hot or Cold Pack,Neuromuscular Re-ed Recommendations To Nursing Amount of Assist Needed 1 Person Assist Discharge Recommendations PT Discharge Recommendations Home with Assistance,Home Health Transportation Needs at Discharge Private Vehicle c
--- NOTE | 2020-12-23 16:09 | PC.NURSE ---
Addendum entered by Kiki Benton R.N. 12/23/20 18:44: Pt attempts out of bed without calling, but insists was utilizing call light. Call light was tested on remote and this is functional. Pt was reoriented to call light. Bed alarm set once pt toileted and returned to bed. Original Note: Pt requests assistance up to commode to void. Observes log rolling and other back surgery precautions well. Able to bear own weight. Admits to weakness to legs BL and aching to lower back and legs. Assisted back into bed and positioned for comfort on right side. Medicated for pain. Call light within reach. BL foot pumps in place BL. Voided 100 cc's pale urine on bedside commode.
[2020-12-23] MEDS: SODIUM CHLORIDE 0.9% FLUSH 10 ML IV (22:03)
[2020-12-23] MEDS: SENNOSIDES 8.6 MG TABLET 17.2 MG PO (22:04)
[2020-12-23] MEDS: LATANOPROST 0.005% OPHTH 2.5 ML 1 DROPS EYE-BOTH (22:04)
[2020-12-23] MEDS: TIZANIDINE 4 MG TABLET 8 MG PO (22:04)
[2020-12-24] VITALS: BP 94/42; PULSE 74; RESP 16; TEMP 36.2; O2SAT 96
[2020-12-24 04:37] VITALS: BP 115/58; PULSE 81; RESP 18; TEMP 36.1; O2SAT 96
[2020-12-24] MEDS: PREGABALIN 75 MG CAPSULE PO (05:32)
[2020-12-24 08:00] VITALS: BP 100/52; PULSE 67; RESP 16; TEMP 36.6; O2SAT 98
[2020-12-24] MEDS: MEDROXYPROGESTERONE ACETATE 2.5 MG TABLET PO (09:35)
[2020-12-24] MEDS: DIVALPROEX DR 250 MG TABLET PO (09:35)
[2020-12-24] MEDS: PARoxetine 20 MG TABLET 40 MG PO (09:35)
[2020-12-24] MEDS: DOCUSATE 100 MG CAPSULE PO (09:35)
[2020-12-24] MEDS: OXYBUTYNIN 5 MG ER TAB 10 MG PO (09:35)
[2020-12-24] MEDS: estradioL 1 MG TABLET 0.5 MG PO (09:36)
[2020-12-24] MEDS: TIMOLOL 0.5% OPHTH 1 DROPS EYE-BOTH (09:38)
[2020-12-24] MEDS: SODIUM CHLORIDE 0.9% FLUSH 10 ML IV (09:38)
--- NOTE | 2020-12-24 11:16 | PT.IPTN ---
Current Diagnoses Cauda equina syndrome (12/21/20) Spinal stenosis, lumbar region without neurogenic claudication (12/21/20) Arthrodesis status (12/21/20) Surgery Performed Operation Date: 12/21/20 07:45 Actual Procedures p L4-5 TLIF, L5-S1 lumbar HWR, exploration of fusion, repeat laminectomy, reinsertion of hardware L4-S1 PSF w. madie - Kalin Louis MD Physical Therapy Treatment Note M2 PT-IP Current Condition Start: 12/22/20 08:12 Freq: NEEDED Status: Active Protocol: Document 12/22/20 11:24 [facility] (Rec: 12/22/20 15:51 [facility] [id number]) Physical Therapy Current Condition Current Condition Evaluation Date 12/22/20 Treatment Diagnosis L4-5 TLIF and revision of L5- S1 TLIF, impaired mobility/ gait Onset Date 12/21/20 Precautions Lumbar Precautions Log Roll,No Twisting,Limit Bending,Lifting Restriction of 10 lbs,Gait Belt above Incisional Area Other Precautions hx of migraines, very sensative to smells M3 PT-IP Subjective Start: 12/22/20 08:12 Freq: NEEDED Status: Active Protocol: Document 12/24/20 10:50 [facility] (Rec: 12/24/20 12:38 [facility] [id number]) Subjective Physical Therapy Visit Type Type Treatment Note Visit Start Time 10:50 Visit Stop Time 11:16 Total Visit Minutes 26 Number of DIGITAL MARKETING COORDINATOR Visits 3 Physical Therapy Visit Comments Patient Comments Pt daughter present for CG training, pt willing to work with therapy. Patient Goals she wants to be able to go home Therapy Pain Assessment Pain When Pain Assessed During Mobility Pain Present Pain Present Pain Reported Location lower back Intensity 5 Scale Used 7/10 after tx Pain Behaviors Guarding Pain Management Techniques Modification of Treatment,Re- positioning M4 PT-IP Mobility and Gait Start: 12/22/20 08:12 Freq: NEEDED Status: Active Protocol: Document 12/24/20 10:50 [facility] (Rec: 12/24/20 12:38 [facility] [id number]) PT-Bed Mobility Assessment Rolling Type of Rolling Log Rolling,Roll to Right Level of Assist Minimal Assistance Sit to Supine Sit to Supine Minimal Assistance,1 Person Assistance PT-Transfer Assessment Sit to and From Stand Sit to and from Stand Contact Guard Assistance,1 Person Assistance,Use of Upper Extremities Equipment Transfer Assistive Device Gait Belt,Front Wheeled Walker Transfers Transfer Destination Bed,Chair Transfer Technique Stand Step Pivot Transfer Ability Level of Assist Contact Guard Assistance,1 Person Assistance,Use of Upper Extremities Gait Assessment Gait Gait Assistance Required: Standby Assistance,1 Person Assist Distance (Feet) 100 Assistive Devices Assistive Device Gait Belt,Front Wheeled Walker Gait Deviations General Gait Pattern Decreased Stride Length Factors Limiting Gait Function Factors Limiting Gait Function Decreased Activity Tolerance, Decreased Strength,Pain M5 PT-IP Objective Assessments Start: 12/22/20 08:12 Freq: NEEDED Status: Active Protocol: Document 12/22/20 11:24 [facility] (Rec: 12/22/20 15:51 [facility] [id number]) Orientation Orientation/Cognition Level of Alertness Alert Orientation Name,Age,Birthday,Month,Date, Year,Day of Week,Place, Situation Language Function Ability No Deficits Noted Safety Awareness Understands Safety Issues Memory Description No Deficits Noted Gross Range of Motion Upper Extremity ROM Assessment Within Functional Limits Lower Extremity ROM Assessment Within Functional Limits Strength Upper Extremity Strength Assessment Within Functional Limits Lower Extremity Strength Assessment Bilaterally Impaired Hip hip flex right 3+/5, left 4/5 Knee knee ext right 4-/5, left 4/5 Ankle DF 5/5 Comments Strength Comments trunk ROM limited post-op spine surgery Coordination Assessment Gross Coordination Gross Coordination WNL Sensation Assessment Sensation Gross Sensation WNL Muscle Tone Muscle Tone WNL Yes M6 PT-IP Treatment Start: 12/22/20 08:12 Freq: NEEDED Status: Active Protocol: Document 12/22/20 15:25 [facility] (Rec: 12/22/20 16:00 [facility] [id number]) Physical Therapy Treatment Exercises Exercises Ankle Pumps Education Education Provided Precautions,Safety M7 PT-IP Assessment and Plan Start: 12/22/20 08:12 Freq: NEEDED Status: Active Protocol: Document 12/24/20 10:50 [facility] (Rec: 12/24/20 12:38 [facility] [id number]) PT Summary Assessment and Plan Potential Rehabilitation Potential Good Status of Condition at Evaluation Evolving Summary Impairments Pain,ROM,Strength,Balance,Bed Mobility,Transfers,Gait, Activity Tolerance Progress Towards Goals Progressing Toward Goals Assessment Summary Pt improving with all mobility able to increase gait distance to ~100ft w/FWW/SBA. Pt is CGA for sit-stand and requires Min A for LE's onto bed. Pt recalls 3/3 back precautions and shows good carryover during mobility. Pt' s daughter is able to assist pt at home. Pt may d/c home when medically able. Goals Bed Mobility Goal Independent Transfer Goal Independent,Front Wheeled Walker Gait Goal Standby Assistance,Front Wheel Walker Gait Distance 100 feet Other Goals Demonstrate good awareness of her post-op spine precautions Days to Meet Goals 3 Frequency of Treatment Frequency Of Treatment Twice a Day Treatment Plan Physical Therapy Treatment Plan Bed Mobility Training,Transfer Training,Gait Training, Therapeutic Exercise,Balance Retraining,Post Op Education, Discharge Planning,Hot or Cold Pack,Neuromuscular Re-ed Recommendations To Nursing Amount of Assist Needed 1 Person Assist Discharge Recommendations PT Discharge Recommendations Home with Assistance,Home Health Transportation Needs at Discharge Private Vehicle
--- NOTE | 2020-12-24 11:39 | PM.DS.1 ---
History of Present Illness History of Present Illness Date Patient Seen: 12/24/20 Time Patient Seen: 11:40 Chief complaint: Translaminar Interbody Fusion/Laminotomy Narrative: The history and physical is contained in the chart in a previously completed note. Please refer to that note for this information. Discharge Providers Provider Date of admission: 12/21/20 06:29 Discharge Date: 12/24/20 Primary care physician: Georgie Serrano DO Consults: 12/21/20 13:34 Consult to Occupational Therapy Evaluate & Treat Comment: Physician Instructions: Evaluate and treat Consult to Physical Therapy Evaluate & Treat Comment: Physician Instructions: Evaluate and Treat 12/23/20 08:13 Consult to Home Health Routine Comment: Reason For Exam: Home health eval twice/week x 3 for spine surgery Discharge provider: Santana Hurley MD Summary Hospital Course Discharge Diagnosis: 1. spinal stenosis 2. Status post prior spinal fusion Hospital Course: the patient was admitted to the hospital and taken directly to the operating room on December 21, 2020 where she underwent a revision decompression and fusion from L4-S1 by Dr. Louis. She tolerated this procedure well. She had some trouble with migraines postoperatively but made good progress and was ready for discharge home on postoperative day 3. Status at Discharge Cognitive/behavioral status at discharge: oriented Functional status at discharge: uses cane/walker Overall status at discharge: patient is progressing back to baseline Time Spent with Patient Time spent: Less than 30 minutes Exam Vital Signs (past 8 hours): - 12/24/20 04:37 12/24/20 08:00 Temperature 97.0 F L 97.9 F Pulse Rate 81 67 Respiratory Rate 18 16 Blood Pressure 115/58 L 100/52 L Pulse Oximetry 96 98 Oxygen Delivery Method Room Air Oxygen Flow Rate 0 Narrative Exam Narrative: The patient is examined while walking in the hallway. There is no evidence of difficulty ambulating. Objective Labs Result Diagrams: 12/22/20 05:30 PFSH Medical History Arthritis Easy bruisability Glaucoma Surgical History History of bilateral cataract extraction History of eye surgery History of spinal fusion (01/2014) History of trabeculectomy Hx of cervical spine surgery (03/2001) Hx of tubal ligation Social History household members: none Smoking Status: Former smoker alcohol intake: current Discharge Assessment & Plan Assessment and Plan Assessment: Stable status post revision L4-S1 decompression and fusion. Ready for discharge home today. Plan of Treatment: discharge to home today with follow-up with Dr. Louis in 10-14 days. Prescriptions for oxycodone, and tizanidine have been provided. She has also been instructed to use Tylenol. Discharge Plan Discharge Plan Patient Disposition: Home Discharge orders & Medications Prescriptions: New acetaminophen 325 mg Tablet 650 mg PO Q6HR PRN (Reason: Pain, Mild (1-3)) 30 Days RF: 0 oxycodone 5 mg Tablet 10 mg PO Q3HR PRN (Reason: Pain, Severe (7-10)) Qty: 40 RF: 0 tizanidine 4 mg Tablet 8 mg PO BEDTIME Qty: 30 RF: 0 Continued latanoprost 0.005 % drops 1 drp EYE-BOTH BEDTIME RF: 0 sumatriptan succinate 100 mg tablet 100 mg PO PRN PRN (Reason: Migraine Headache) RF: 0 medroxyprogesterone 2.5 mg tablet 2.5 mg PO DAILY RF: 0 divalproex 125 mg tablet,delayed release (DR/EC) 250 mg PO BID RF: 0 estradiol 0.5 mg tablet 0.5 mg PO DAILY RF: 0 paroxetine HCl 40 mg tablet 40 mg PO DAILY RF: 0 eszopiclone 3 mg tablet 3 mg PO BEDTIME PRN (Reason: Sleep) RF: 0 timolol maleate 0.5 % drops, once daily 1 drp EYE-BOTH BID RF: 0 pregabalin 75 mg capsule 75 mg PO Q8H RF: 0 Myrbetriq 50 mg tablet extended release 24 hr 50 mg PO DAILY RF: 0 tizanidine 4 mg tablet 8 mg PO DAILY Qty: 30 RF: 0 Discontinued naproxen sodium [Aleve] 220 mg Capsule 220 mg PO BID RF: 0 Aleve PM 220-25 mg Tablet 2 tab PO BEDTIME RF: 0 Follow up/Referrals: Kalin Louis MD [Physician] - 2 Weeks Georgie Serrano DO [Primary Care Provider] - Discharge Health Status Multidrug resistant organism: No MDRO Diet/Activity/Treatments Diet: Diet as Tolerated Activity: Lift no more than 10 lb. You may ambulate as tolerated. Cold/Heat Therapy: You may apply ice for 15 minutes every hour as needed to the surgical site for pain relief. Skin/Wound/Dressing Care Report to your healthcare provider any signs of infection, such as:: chills, fever, night sweats, increased pain, unusual drainage and unusual redness Dressing: Keep the dressing clean and dry. Visit Report/Discharge Packet Instructions: DI for Prescription Opioid Use, DI for Transforaminal Lumbar Interbody Fusion Stand Alone Forms: Surgery Discharge Discharge Data Primary Care Provider: Georgie Serrano
[2020-12-24] MEDS: OXYCODONE IR 5 MG TABLET 10 MG PO (11:46)
--- NOTE | 2020-12-24 13:05 | OT.IP.TRT ---
Current Diagnoses Cauda equina syndrome (12/21/20) Spinal stenosis, lumbar region without neurogenic claudication (12/21/20) Arthrodesis status (12/21/20) Surgery Performed Operation Date: 12/21/20 07:45 Actual Procedures p L4-5 TLIF, L5-S1 lumbar HWR, exploration of fusion, repeat laminectomy, reinsertion of hardware L4-S1 PSF w. madie - Kalin Louis MD Occupational Therapy Treatment Note M2 OT-IP Current Condition Start: 12/22/20 13:28 Freq: Status: Active Protocol: Document 12/22/20 13:35 CCC (Rec: 12/22/20 13:57 CCC [id number]) Occupational Therapy Current Condition Current Condition Evaluation Date 12/22/20 Treatment Diagnosis S/p L4-5 TLIF, Ls-S1 lumabr HWR exploratory fusion, repeat laminectomy, re Diagnosis Onset Date 12/21/20 Post Operative Precautions Lumbar Precautions Log Roll,No Twisting,Limit Bending,Lifting Restriction of 10 lbs,Gait Belt above Incisional Area M3 OT- IP Subjective and Pain Start: 12/22/20 13:28 Freq: Status: Active Protocol: Document 12/24/20 15:39 CGR (Rec: 12/24/20 15:56 CGR [id number]) OT- Subjective Occupational Therapy Visit Type Type Progress Note Visit Start Time 12:10 Visit Stop Time 13:05 Total Visit Minutes 55 Notes Pt's daughter present throughout OT Pain Assessment Pain When Pain Assessed At Rest Pain Present Pain Present Pain Reported Location lower back Scale Used did not rate but indicated better after meds Management Techniques Modification of Treatment,Re- positioning,Timing of Activity with Medications M4 OT- IP ADL's Start: 12/22/20 13:28 Freq: Status: Active Protocol: Document 12/24/20 15:39 CGR (Rec: 12/24/20 15:56 CGR [id number]) OT [id number] Comments OT Self-Feeding Comments Not meal time OT ADL-Grooming Comments OT Grooming Comments not performed OT ADL-Oral Care Comments Oral Care Comments not performed OT ADL-Dressing General Eval Upper Body Dressing Ability Independent Lower Body Dressing Ability Standby Assistance Areas Needing Assistance Underpants/Brief,Socks Assistive Devices Dressing Assistive Devices Supply Requirements Officer,Sock Aid Comments OT Dressing Comments Seated in chair OT ADL-Toileting Comments OT Toileting Comments Not performed OT ADL-Bathing Bathing Type Bathing Type Shower General Evaluation Bathing Ability Standby Assistance Areas Needing Assistance Retrieving/Setting Up Items Devices Bathing Equipment Hand Held Shower Sprayer, Shower Chair with Arms Comments OT Bathing Comments Seated for bathing. SBA for standing pericare. M5 OT- IP IADL's Start: 12/22/20 13:28 Freq: Status: Active Protocol: Document 12/22/20 13:35 [facility] (Rec: 12/22/20 13:57 [facility] [id number]) OT-Instrumental Activities of Daily Living Home Safety Awareness Awareness of Need for Assistance at Home Good Awareness Ability to Problem Solve Emergency Able to Problem Solve Situations Medication Management Medication Management Comments Pt a little groogy and best for her daughter to provide supervision /assist for her needs. Money Management Money Management Comments Pt a little groogy and best for her daughter to provide supervision /assist for her needs. Meal Preparation Meal Preparation Comments Pt a little groogy and best for her daughter to provide supervision /assist for her needs. Funeral Car Driver Funeral Car Driver Comments Pt a little groogy and best for her daughter to provide supervision /assist for her needs. M6 OT- IP Functional Cognition Start: 12/22/20 13:28 Freq: Status: Active Protocol: Document 12/23/20 12:24 [facility] (Rec: 12/23/20 12:41 [facility] [id number]) Cognitive Factors Limiting Selfcare Function Cognitive Ability Level of Alertness Alert Patient Orientation Name,Place,Situation Attention Span Ability Capable of Focused Attention, Capable of Sustained Attention Ability to Follow Commands Able to Follow One Step Commands Memory Description Short Term Impaired Cognitive Comments Cognitive Assessment Comments Pt still needing lots of VC to incorporate back precautions for needs. At times pt is slow to response and think thing through during ADL's. Pt having trouble seeing so able to clear her glasses and trun on the light which helped pt. Vc for safety awareness to reach back with her hand before sitting. M7 OT- IP Mobility and Balance Start: 12/22/20 13:28 Freq: Status: Active Protocol: Document 12/24/20 15:39 CGR (Rec: 12/24/20 15:56 CGR [id number]) OT-Transfer Assessment Sit to and From Stand Sit to and from Stand Standby Assistance,Contact Guard Assistance Transfers Transfer Ability Standby Assistance,Contact Guard Assistance Technique Transfer Destination Bedside Commode,Chair Transfer Technique Stand Step Pivot Devices Transfer Assistive Devices Gait Belt,Front Wheeled Walker Comments Mobility Comments Mobility in and out of the bathroom for shower. OT- Balance Assessment Sitting Balance and Reactions Static Sitting Balance Ability Good Dynamic Sitting Balance Ability Good M8 OT- IP Objective Assessments Start: 12/22/20 13:28 Freq: Status: Active Protocol: Document 12/22/20 13:35 CCC (Rec: 12/22/20 13:57 CCC [id number]) OT Gross Range of Motion Upper Extremity Range of Motion Assessment Within Functional Limits OT- Coordination Assessment Comments Coordination Comments Pt having difficulty to kelli socks over the sock aid. OT-Muscle Tone Assessment Muscle Tone WNL Yes M9 OT- IP Assessment and Plan Start: 12/22/20 13:28 Freq: Status: Active Protocol: Document 12/24/20 15:39 CGR (Rec: 12/24/20 15:56 CGR [id number]) OT Summary Assessment and Plan Potential Rehabilitation Potential Good Analytic Complexity at Evaluation Moderate Summary OT Impairments Pain,Balance,Functional Cognition,Functional Mobility, Grooming,Dressing,Toileting, Bathing,Toilet Transfers, Shower Transfers,Activity Tolerance Progress Towards Goals Slow Progress due to Pain,Slow Progress due to Medical Issues,Slow Progress due to Cognition Assessment Summary Pt is progressing with therapy and shows gains on this date. Pt performed shower with minimal VC and was able to state back precautions. Pt was able to use the LB dressing equipment without VC and left sitting in chair at end of session ready for d/c home with family support. Goals Grooming Goal Independent Dressing Goal Independent Toileting Goal Independent Bathing Goal Independent Toilet Transfer Goal Independent Shower Transfer Goal Independent Patient/Caregiver Education Goal Demonstrate Post-Op Precautions,Caregiver Independent Assisting Patient Days to Meet Goals 7 Frequency of Treatment Frequency Of Treatment Once a Day Treatment Plan OT Treatment Plan ADL Training,Functional Cognition Training,Functional Mobility,Patient/Family Education,Discharge Planning Other Treatment Recommendations and Next shower and caregiver training Treatment Focus Discharge Recommendations OT Discharge Recommendations Home with 21/01 Assist Available,Home Health Other Discharge Recommendations Possible short skilled rehab pending caregiver training. Home Equipment Needs shower chair Transportation Needs at Discharge Private Vehicle
--- NOTE | 2020-12-24 13:13 | PC.NURSE ---
Patient is working well with physical therapy, dressing to lower back changed. Given oxycodone for discomfort and helpful. CMS wnl and ppx2. Patient is going to be discharging home momentarily. Daughter is here to pick her up.
--- NOTE | 2020-12-24 13:36 | CM.DPC ---
DCP: continued: EMR reviewed and d/c order for home with HH is noted. Dr. Hurley was here earlier to finalize the orders. Met with pt and her daughter Shelbi, who confirms she will be staying with pt for a few days and longer if needed. PT/OT HH are ordered. HH agency list: discussed: [facility] serve the [place] area: a call to [facility] leads to an answering service and then to a rep who covers multiple count includes the [facility] referrals but not [facility]. Moved on to [facility]: Mahendra accepts the referral but cautions the first opening is Thursday 12/28. Pt is updated. [facility] brochure provided. IMM #2presented. Pt is up independently in the room with the FWW and with daughter helping her get packed up to leave. Have now faxed the op report, dc summary, HH orders, Face/Face document, Face sheet. P: home today, daughter to stay, [facility] but not til mid next week. Routine orthopedic clinic followup.
== END 2020-12-24 13:59 | disposition home or self-care (01) | DRG 454 ==
PROVIDERS: Admitting Provider Orthopaedic Surgery Orthopaedic Surgery of the Spine; PCP Family Medicine; Referring Provider Orthopaedic Surgery Orthopaedic Surgery of the Spine; Visit Provider Orthopaedic Surgery Orthopaedic Surgery of the Spine
PROC: 0SG00AJ Fusion of Lumbar Vertebral Joint with Interbody Fusion Device, Posterior Approach, Anterior Column, Open Approach (ICD-10-PCS; principal; 2020-12-21 07:45)
DX: M48.062 Spinal stenosis, lumbar region with neurogenic claudication (principal); G83.4 Cauda equina syndrome; M96.0 Pseudarthrosis after fusion or arthrodesis; T84.038A Mechanical loosening of other internal prosthetic joint, initial encounter; G43.909 Migraine, unspecified, not intractable, without status migrainosus; F32.9 Major depressive disorder, single episode, unspecified; Z87.891 Personal history of nicotine dependence; Z98.1 Arthrodesis status; M47.26 Other spondylosis with radiculopathy, lumbar region; M47.27 Other spondylosis with radiculopathy, lumbosacral region; M96.1 Postlaminectomy syndrome, not elsewhere classified; Z20.822 Contact with and (suspected) exposure to COVID-19
CPT/HCPCS: 36415; 72100; 76000; 85014; 85018; 87635; 97116; 97162; 97165; 97530; 97535; C1776; C9290; J0330; J0690; J1100; J1170; J2250; J2405; J2704; J3010

== ENCOUNTER → 2021-05-04 12:12 | Outpatient (CLI) | payer OTHER, SELFPAY ==
[2020-12-21 17:49] VITALS: BMI 27.3
== END ==
PROVIDERS: PCP Family Medicine; Referring Provider Family Medicine; Visit Provider Family Medicine
DX: Z78.0 Asymptomatic menopausal state; Z87.891 Personal history of nicotine dependence
CPT/HCPCS: 77080

== ENCOUNTER → 2021-05-22 12:59 | Outpatient (CLI) | payer OTHER, SELFPAY ==
[2020-12-21 17:49] VITALS: BMI 27.3
--- NOTE | 2021-05-22 12:59 | DI.MG.S_ITS ---
BILATERAL DIGITAL DIAGNOSTIC MAMMOGRAM 3D/2D SHORT-TERM FOLLOW-UP: 05/22/2021 CLINICAL: Short term follow up of the left breast, due for bilateral imaging. Comparison is made to exams dated: 04/13/2020 mammogram, 09/21/2020 ultrasound, and 04/13/[address] [facility]. There are scattered fibroglandular elements in both breasts. No significant masses, calcifications, or other findings are seen in either breast. No mammographic correlate for the abnormality seen on prior ultrasound. IMPRESSION: INCOMPLETE: NEEDS ADDITIONAL IMAGING EVALUATION There is no abnormality seen in the left breast to correspond with the ultrasound finding, however, ultrasound is recommended. There is no mammographic evidence of malignancy. This exam was interpreted at Station ID: [id number]. NOTE: For mammograms, a report in lay terms will be sent to the patient. Approximately 15% of breast malignancies will not be visualized mammographically. In the management of a palpable breast mass, a negative mammogram must not discourage biopsy of a clinically suspicious lesion. Electronically Signed By: Juanpablo Dominguez M.D. jr/:05/23/2021 10:28:21 letter sent: Need Ultrasound ACR BI-RADS Category 0: Incomplete [id number]
== END ==
PROVIDERS: PCP Family Medicine; Referring Provider Family Medicine; Visit Provider Family Medicine
DX: R92.8 Other abnormal and inconclusive findings on diagnostic imaging of breast (principal)
CPT/HCPCS: 77066; G0279

== ENCOUNTER → 2021-10-06 10:49 | Outpatient (CLI) | payer OTHER, SELFPAY ==
[2020-12-21 17:49] VITALS: BMI 27.3
--- NOTE | 2021-10-06 | DI.US.S_ITS ---
ULTRASOUND OF LEFT BREAST: 10/06/2021 CLINICAL: Late 6 month follow-up of cysts. Comparison is made to exams dated: 05/22/2021 mammogram, 09/21/2020 ultrasound, 04/13/2020 ultrasound, 04/13/2020 mammogram, 09/14/2019 mammogram, and 09/14/2019 ultrasound - [facility]. Color flow and continuous wave Doppler ultrasound of the left breast were performed. Paul scale images of the real-time examination were reviewed. There is a stable benign 0.8 cm x 0.4 cm x 0.7 cm fat necrosis in the left breast at 12 o'clock middle depth 3 cm from the nipple. This mass is hyperechoic. IMPRESSION: BENIGN There is no sonographic evidence of malignancy. The stable 0.8 cm x 0.4 cm x 0.7 cm mass in the left breast likely represents stable fat necrosis and is benign. Return to annual mammogram screening schedule is recommended. This exam was interpreted at Station ID: [id number]. Electronically Signed By: Jese Mendez acr/:10/09/2021 14:27:53 letter sent: Normal Exam Ultrasound BI-RADS: 2 Benign
== END ==
PROVIDERS: PCP Family Medicine; Referring Provider Physician Assistant; Visit Provider Family Medicine
DX: R92.8 Other abnormal and inconclusive findings on diagnostic imaging of breast (principal); N63.25 Unspecified lump in the left breast, overlapping quadrants
CPT/HCPCS: 76642

== ENCOUNTER 2022-01-07 14:39 | Inpatient (IN) | payer OTHER, SELFPAY ==
[2020-12-21 17:49] VITALS: BMI 27.3
[2022-01-07] VITALS (30 sets, daily range): BP systolic 106–191; BP diastolic 56–90; PULSE 75–84; RESP 10–29; TEMP 36.2–36.7; O2SAT 65–100; BMI 28.7
--- NOTE | 2022-01-07 15:02 | DI.RAD.S_ITS ---
PROCEDURE: XR CHEST 1V INDICATIONS: chest pain TECHNIQUE: One view of the chest was acquired. COMPARISON: None. FINDINGS: Surgical changes and devices: None. Lungs and pleura: Lungs are clear. No pleural effusions or pneumothorax. Mediastinum: Mediastinal contours appear normal. Heart size is enlarged. Bones and chest wall: No suspicious bony lesions. Overlying soft tissues appear unremarkable. IMPRESSION: No acute cardiopulmonary abnormality. Dictated by: Jese Mendze M.D. on 01/07/2022 at 14:57 Approved by: Jese Mendez M.D. on 01/07/2022 at 14:58
--- NOTE | 2022-01-07 15:27 | DI.RAD.S_ITS ---
PROCEDURE: XR ANKLE LT 2V INDICATIONS: deformity TECHNIQUE: 2 views of the ankle were acquired. COMPARISON: None. FINDINGS: Bones: Fracture dislocation with a comminuted displaced fracture of the distal fibula. Soft tissues: No tibiotalar joint effusion. Achilles tendon appears normal. IMPRESSION: Fracture dislocation with a comminuted fracture of the distal fibula. Dictated by: Jese Mendez M.D. on 01/07/2022 at 15:15 Approved by: Jese Mendez M.D. on 01/07/2022 at 15:17
[2022-01-07 16:03] LABS: COVID19 -Nasal RAPID POSITIVE (Negative)
--- NOTE | 2022-01-07 16:32 | ED.LOWEXIN ---
HPI - Extremity Injury (Lower) <Ara Mota, DO - Last Filed: 01/08/22 11:31> General Chief Complaint: Extremity Injury, Lower Stated Complaint: Lt. ankle with deformity Time Seen by Provider: 01/07/22 16:10 Source: patient and EMS Mode of arrival: EMS Limitations: no limitations History of Present Illness HPI Narrative: This is a 66-year-old female with history spinal stenosis, renal insufficiency GERD and depression. Patient states she had a slip and fall likely from wearing her compression socks which she states are very slippery. She states she is been having some increasing swelling lately that caused her to start wearing her compression socks. 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 She normally only uses a cane. She would a fall denies hitting her head no neck or back pain. She denies any new sensation changes but does have some decreased sensation bilaterally normally she has sensation to light touch on examination. Patient states no active chest pain but has had some cough, congestion and occasional shortness of breath. No acute fevers but started having symptoms and tested positive for COVID in the last 5 days. She had nausea but no active vomiting. She had some diarrhea the 1st day but has not been persisting. No urinary symptoms. Patient states no known cardiac history no prior cardiac stents. She has had lumbar surgery but denies any cardiac surgeries. She has allergy to penicillin and tetracycline. At home she noted that she had deformity of her foot and eventually had to get herself to the phone and call 911 and was assisted here. Her injury happened about 5:00 a.m. this morning. Related Data Home Medications Medication Instructions Recorded Confirmed divalproex 125 mg tablet,delayed 250 mg PO BID 09/29/20 01/07/22 release eszopiclone 3 mg tablet 3 mg PO BEDTIME PRN Sleep 09/29/20 01/07/22 latanoprost 0.005 % eye drops 1 drp EYE-BOTH BEDTIME 09/29/20 01/07/22 mirabegron 50 mg tablet,extended 50 mg PO DAILY 09/29/20 01/07/22 release 24 hr (Myrbetriq) paroxetine HCl 40 mg tablet 40 mg PO DAILY 09/29/20 01/07/22 pregabalin 75 mg capsule 75 mg PO Q8H 09/29/20 01/07/22 sumatriptan succinate 100 mg tablet 100 mg PO PRN PRN Migraine Headache 09/29/20 01/07/22 timolol maleate 0.5 % once daily 1 drp EYE-BOTH BID 09/29/20 01/07/22 eye drops brinzolamide 1 %-brimonidine 0.2 % 1 drp EYE-BOTH TID 01/07/22 01/07/22 eye drops,suspension (Simbrinza) solifenacin 10 mg tablet 10 mg PO QAM 01/07/22 01/07/22 Previous Rx's Medication Instructions Recorded tizanidine 4 mg tablet 8 mg PO BEDTIME #30 tabs 12/24/20 Allergies Allergy/AdvReac Type Severity Reaction Status Date / Time Penicillins Allergy Severe Rash Verified 01/07/22 14:59 tetracycline Allergy Severe Rash Verified 01/07/22 14:59 Review of Systems <Ara Mota DO - Last Filed: 01/08/22 11:31> Review of Systems ROS Unobtainable: All systems reviewed & are unremarkable except as noted in HPI and below Patient History <Ara Mota DO - Last Filed: 01/08/22 11:31> Medical History Arthritis Easy bruisability Glaucoma Surgical History History of bilateral cataract extraction History of eye surgery History of spinal fusion (01/2014) History of trabeculectomy Hx of cervical spine surgery (03/2001) Hx of tubal ligation Family History Mother Infection, dialysis vascular access Social History household members: none Smoking Status: Former smoker alcohol intake: current Smoking Status: Former smoker alcohol intake frequency: a few times a month Alcohol type: wine Substance Use Type: does not use Exam <Ara Mota DO - Last Filed: 01/08/22 11:31> Narrative Exam Narrative: GEN: well nourished, well appearing female, alert and oriented x 3, patient appears to be in mild distress. HEENT: Atraumatic, pupils are equal round reactive to light, extraocular movements are intact, nares are clear, TMs, Throat is clear without any exudates, erythema, tonsillar enlargement or uvular deviation HEART: Regular rate and rhythm without murmur, clicks, rubs. Mild swelling bilateral lower extremities. LUNGS:Lungs clear to auscultation, no wheezes, rales, crackles, chest moves symmetrically, no tachypnea accessory muscle use. ABD:bowel sounds normal, soft, non-tender, no guarding, rebound, rigidity, no masses noted, no hepatosplenomegaly :No CVA tenderness MSCL: Patient's has obvious deformity at the left ankle with her foot rotated laterally 90? from midline. Patient has tenting over the site of the lateral malleoli, there is no open wound but there is some ecchymosis. Patient has a palpable pulse, she has sensation to light touch throughout. Patient can wiggle her toes. She does not have any lacerations or wounds appreciated. She does not have any other bony tenderness elsewhere in her other 3 extremities. NEURO:CN 2-12 intact, sensation normal SKIN: No other rash, skin changes or ecchymosis noted elsewhere. Initial Vital Signs Initial Vital Signs: Vital Signs Temperature 98.1 F 01/07/22 14:45 Pulse Rate 78 01/07/22 14:45 Respiratory Rate 16 01/07/22 14:45 Blood Pressure 106/56 L 01/07/22 14:45 Pulse Oximetry 99 01/07/22 14:45 Oxygen Delivery Method 01/07/22 14:45 <Jose M Salcedo, DO - Last Filed: 01/07/22 23:37> Initial Vital Signs Initial Vital Signs: Vital Signs Temperature 98.1 F 01/07/22 14:45 Pulse Rate 78 01/07/22 14:45 Respiratory Rate 16 01/07/22 14:45 Blood Pressure 106/56 L 01/07/22 14:45 Pulse Oximetry 99 01/07/22 14:45 Oxygen Delivery Method 01/07/22 14:45 Procedures <Ara Mota, DO - Last Filed: 01/08/22 11:31> Orthopedic Fracture Reduction Fracture #1: Time Out Performed: Yes Side: left Fracture Reduction Location: tibia (talus) and fibula Analgesia: procedural sedation Technique: direct manipulation and traction/counter-traction Post Reduction X-rays Demonstrate: acceptable reduction Post-reduction neuro exam: intact Post-reduction vascular exam: intact Splint Applied: Yes Patient Tolerated Procedure: Well Orthopedic Joint Reduction Joint #1: Time Out Performed: Yes Side: left Joint Reduction Location: ankle Analgesia: procedural sedation Technique used: traction/counter-traction and direct manipulation Post-reduction neuro exam: intact Post-reduction vascular: intact Post Reduction X-Ray Obtained: Yes Post Reduction X-Ray Results: reduced Splint Applied: Yes Patient Tolerated Procedure: Well Course <Ara Mota, DO - Last Filed: 01/08/22 11:31> Orders Ordered: Acetaminophen (Acetaminophen 325 Mg Tablet) 650 mg PO Q6HR PRN PRN Reason: Fever/Mild Pain (1-3) Last Admin: 01/08/22 00:27 Dose: 650 mg Documented By: CS Docusate Sodium (Docusate 100 Mg Capsule) 100 mg PO BID [facility] Last Admin: 01/08/22 08:42 Dose: 100 mg Documented By: OW Enoxaparin Sodium (Enoxaparin 40 Mg/0.4 Ml Syringe) 40 mg SUBCUT DAILY [facility] Last Admin: 01/08/22 08:41 Dose: 40 mg Documented By: OW Morphine Sulfate (Morphine 2 Mg/Ml Inj) 2 mg IV Q4H PRN PRN Reason: Breakthrough pain only (8-10) Last Admin: 01/08/22 03:40 Dose: 2 mg Documented By: CS Ondansetron HCl (Ondansetron 4 Mg/2 Ml Inj) 4 mg IV Q6HR PRN PRN Reason: Nausea And Vomiting Tramadol HCl (Tramadol 50 Mg Tablet) 50 mg PO Q4H PRN PRN Reason: Pain, Moderate (4-6) Tramadol HCl (Tramadol 50 Mg Tablet) 100 mg PO Q4H PRN PRN Reason: Pain, Severe (7-10) Stop: 01/10/22 22:42 Discontinued Medications Aspirin (Aspirin 81 Mg Chew Tab) 324 mg PO NOW ONE Stop: 01/07/22 20:06 Last Admin: 01/07/22 20:50 Dose: 324 mg Documented By: NR Dexamethasone (Dexamethasone 10 Mg/Ml Vial) 6 mg IV DAILY [facility] Remdesivir 200 mg/ Sodium (Chloride) 250 mls @ 250 mls/hr IV NOW ONE Stop: 01/07/22 23:47 Last Admin: 01/08/22 03:33 Dose: 250 mls/hr Documented By: AZEEM Remdesivir 100 mg/ Sodium (Chloride) 250 mls @ 250 mls/hr IV 2100 [facility] Stop: 01/16/22 21:59 Morphine Sulfate (Morphine 4 Mg/Ml Inj) 4 mg IV NOW ONE Stop: 01/07/22 16:27 Last Admin: 01/07/22 16:52 Dose: 4 mg Documented By: NR Morphine Sulfate (Morphine 4 Mg/Ml Inj) 4 mg IV NOW ONE Stop: 01/07/22 17:44 Last Admin: 01/07/22 18:07 Dose: 4 mg Documented By: NR Consultations Consultation #1: Dr. Scruggs, orthopedic surgery discussed patient does need reduction of ankle she fracture dislocation of the left ankle but is COVID positive, has new EKG changes but unable to obtain labs yet waiting to obtain troponin. Patient is neurovascularly intact but does have tenting. Consultation #2: Dr. Navarro, Anesthesia. Discussed patient has a ankle fracture/dislocation he is COVID positive has new EKG changes significant T-wave inversion in lateral leads new in the past year. No active acute chest pain but does need emergent reduction but is higher risk secondary to both of these issues. After discussion Dr. Navarro will perform procedural sedation while I do reduction in order to have 2 providers present during the procedure. Dr. Navarro in the department. Preformed procedural sedation himself. Reduction fracture/dislocation of joint performed by himself. Consultation #3: Dr. Ryan, cardiology. Recommends aspirin 324 trending troponins no heparin at this time he suspects possible myocarditis of patient's chest pain-free but with EKG changes. These are typically not treated with colchicine or steroids. He asked to be re-contacted if troponins continue to trend upwards or patient develops new symptoms. Additional Consultation(s): Valerie Nava NP hospitalist service discussed recommendations from Cardiology, Orthopedics that findings today. Plan for repeat troponin in 2 hours from initial and Dr. Nicholas Lloyd will follow this up and recontact Valerie with plan for admission for NSTEMI vs covid myocarditis. Vital Signs Vital signs: Vital Signs - 8 hr 01/07/22 18:56 01/07/22 16:00 01/07/22 16:26 Pulse Rate 79 76 Respiratory Rate 14 22 Blood Pressure 135/78 Pulse Oximetry 100 01/07/22 16:26 01/07/22 16:30 01/07/22 17:00 Pulse Rate 79 79 81 Respiratory Rate 11 L 14 19 Blood Pressure Pulse Oximetry 96 99 99 01/07/22 17:30 01/07/22 17:48 01/07/22 17:48 Pulse Rate 81 79 Respiratory Rate 14 12 Blood Pressure 138/90 Pulse Oximetry 98 65 L 01/07/22 18:00 01/07/22 18:00 01/07/22 18:27 Pulse Rate 79 Respiratory Rate 22 Blood Pressure 132/78 142/75 H Pulse Oximetry 100 01/07/22 18:27 01/07/22 18:30 01/07/22 18:30 Pulse Rate 81 84 Respiratory Rate 10 L 20 Blood Pressure 124/64 Pulse Oximetry 82 L 99 01/07/22 18:35 01/07/22 18:35 01/07/22 18:40 Pulse Rate 82 Respiratory Rate 15 Blood Pressure 125/66 126/68 Pulse Oximetry 100 01/07/22 18:40 01/07/22 18:45 01/07/22 18:45 Pulse Rate 81 78 Respiratory Rate 15 13 Blood Pressure 122/72 Pulse Oximetry 100 99 01/07/22 18:50 01/07/22 18:50 01/07/22 19:00 Pulse Rate 80 78 Respiratory Rate 20 17 Blood Pressure 133/65 Pulse Oximetry 99 99 01/07/22 19:11 01/07/22 19:11 01/07/22 19:15 Pulse Rate 79 79 Respiratory Rate 29 H 15 Blood Pressure 140/73 Pulse Oximetry 98 99 01/07/22 19:15 01/07/22 19:30 01/07/22 20:00 Pulse Rate 84 81 Respiratory Rate 24 12 Blood Pressure 133/71 191/81 H Pulse Oximetry 99 01/07/22 20:30 01/07/22 21:00 01/07/22 21:30 Pulse Rate 83 80 77 Respiratory Rate 12 15 15 Blood Pressure Pulse Oximetry 99 100 98 <Jose M Salcedo DO - Last Filed: 01/07/22 23:37> Orders Ordered: Acetaminophen (Acetaminophen 325 Mg Tablet) 650 mg PO Q6HR PRN PRN Reason: Fever/Mild Pain (1-3) Last Admin: 01/08/22 00:27 Dose: 650 mg Documented By: CS Docusate Sodium (Docusate 100 Mg Capsule) 100 mg PO BID [facility] Last Admin: 01/08/22 08:42 Dose: 100 mg Documented By: OW Enoxaparin Sodium (Enoxaparin 40 Mg/0.4 Ml Syringe) 40 mg SUBCUT DAILY [facility] Last Admin: 01/08/22 08:41 Dose: 40 mg Documented By: OW Morphine Sulfate (Morphine 2 Mg/Ml Inj) 2 mg IV Q4H PRN PRN Reason: Breakthrough pain only (8-10) Last Admin: 01/08/22 03:40 Dose: 2 mg Documented By: CS Ondansetron HCl (Ondansetron 4 Mg/2 Ml Inj) 4 mg IV Q6HR PRN PRN Reason: Nausea And Vomiting Tramadol HCl (Tramadol 50 Mg Tablet) 50 mg PO Q4H PRN PRN Reason: Pain, Moderate (4-6) Tramadol HCl (Tramadol 50 Mg Tablet) 100 mg PO Q4H PRN PRN Reason: Pain, Severe (7-10) Stop: 01/10/22 22:42 Discontinued Medications Aspirin (Aspirin 81 Mg Chew Tab) 324 mg PO NOW ONE Stop: 01/07/22 20:06 Last Admin: 01/07/22 20:50 Dose: 324 mg Documented By: NR Dexamethasone (Dexamethasone 10 Mg/Ml Vial) 6 mg IV DAILY [facility] Remdesivir 200 mg/ Sodium (Chloride) 250 mls @ 250 mls/hr IV NOW ONE Stop: 01/07/22 23:47 Last Admin: 01/08/22 03:33 Dose: 250 mls/hr Documented By: CS Remdesivir 100 mg/ Sodium (Chloride) 250 mls @ 250 mls/hr IV 2100 [facility] Stop: 01/16/22 21:59 Morphine Sulfate (Morphine 4 Mg/Ml Inj) 4 mg IV NOW ONE Stop: 01/07/22 16:27 Last Admin: 01/07/22 16:52 Dose: 4 mg Documented By: NR Morphine Sulfate (Morphine 4 Mg/Ml Inj) 4 mg IV NOW ONE Stop: 01/07/22 17:44 Last Admin: 01/07/22 18:07 Dose: 4 mg Documented By: NR Vital Signs Vital signs: Vital Signs - 8 hr 01/07/22 18:56 01/07/22 16:00 01/07/22 16:26 Pulse Rate 79 76 Respiratory Rate 14 22 Blood Pressure 135/78 Pulse Oximetry 100 01/07/22 16:26 01/07/22 16:30 01/07/22 17:00 Pulse Rate 79 79 81 Respiratory Rate 11 L 14 19 Blood Pressure Pulse Oximetry 96 99 99 01/07/22 17:30 01/07/22 17:48 01/07/22 17:48 Pulse Rate 81 79 Respiratory Rate 14 12 Blood Pressure 138/90 Pulse Oximetry 98 65 L 01/07/22 18:00 01/07/22 18:00 01/07/22 18:27 Pulse Rate 79 Respiratory Rate 22 Blood Pressure 132/78 142/75 H Pulse Oximetry 100 01/07/22 18:27 01/07/22 18:30 01/07/22 18:30 Pulse Rate 81 84 Respiratory Rate 10 L 20 Blood Pressure 124/64 Pulse Oximetry 82 L 99 01/07/22 18:35 01/07/22 18:35 01/07/22 18:40 Pulse Rate 82 Respiratory Rate 15 Blood Pressure 125/66 126/68 Pulse Oximetry 100 01/07/22 18:40 01/07/22 18:45 01/07/22 18:45 Pulse Rate 81 78 Respiratory Rate 15 13 Blood Pressure 122/72 Pulse Oximetry 100 99 01/07/22 18:50 01/07/22 18:50 01/07/22 19:00 Pulse Rate 80 78 Respiratory Rate 20 17 Blood Pressure 133/65 Pulse Oximetry 99 99 01/07/22 19:11 01/07/22 19:11 01/07/22 19:15 Pulse Rate 79 79 Respiratory Rate 29 H 15 Blood Pressure 140/73 Pulse Oximetry 98 99 01/07/22 19:15 01/07/22 19:30 01/07/22 20:00 Pulse Rate 84 81 Respiratory Rate 24 12 Blood Pressure 133/71 191/81 H Pulse Oximetry 99 01/07/22 20:30 01/07/22 21:00 01/07/22 21:30 Pulse Rate 83 80 77 Respiratory Rate 12 15 15 Blood Pressure Pulse Oximetry 99 100 98 MDM - Extremity Injury (Lower) <Ara Mota, DO - Last Filed: 01/08/22 11:31> Lab Data Result diagrams: 01/08/22 03:50 01/08/22 03:50 Labs: Lab Results 01/07/22 01/07/22 01/07/22 Range/Units 14:48 19:05 19:05 WBC 4.5 (4.5-11.0) X10^3/uL RBC 4.03 (4.0-5.2) X10^6/uL Hgb 11.3 L (12.0-16.0) g/dL Hct 34.1 L (36-46) % MCV 84.7 (80-100) fL MCH 28.1 (26-34) PG MCHC 33.2 (30-36) % RDW 14.0 (11.6-14.8) % Plt Count 174 (150-400) X10^3/uL Neut % (Auto) 58.2 (50-75) % Lymph % (Auto) 26.7 (25-40) % Lagrange % (Auto) 12.7 (3-14) % Eos % (Auto) 1.9 L (2-4) % Baso % (Auto) 0.5 (0-2) % Neut # (Auto) 2600 (1361-9814) /uL Lymph # (Auto) 1200 (3495-3887) /uL [place] # (Auto) 600 (0-900) /uL Eos # (Auto) 100 (0-450) /uL Baso # (Auto) 0 (0-100) /uL Sodium 139 (137-145) mmol/L Potassium 4.0 (3.4-5.1) mmol/L Chloride 104 (98-107) mmol/L Carbon Dioxide 28 (22-32) mmol/L BUN 34 H (7-17) mg/dL Creatinine 1.87 H (0.52-1.04) mg/dL Estimated GFR 29 L (>60) mL/min BUN/Creatinine Ratio 18.2 (6-22) Glucose 81 (80-110) mg/dL Calcium 8.2 L (8.4-10.2) mg/dL Magnesium 1.8 (1.6-2.3) mg/dL Total Bilirubin 0.6 (0.2-1.3) mg/dL AST 191 H (14-36) IU/L ALT 54 H (<35) IU/L Alkaline Phosphatase 93 (38-126) U/L Total Creatine Kinase 6339 H (30-135) U/L CK-MB (CK-2) 17.30 H (<2.37) ng/mL CK-MB (CK-2) Rel Index 0.3 L (1.5-5.0) % Troponin I 0.334 H* (0.01-0.034) ng/mL Total Protein 6.8 (6.3-8.2) g/dL Albumin 3.6 (3.5-5.0) g/dL Globulin 3.2 (1.7-4.1) g/dL Albumin/Globulin Ratio 1.1 (1.0-2.8) Lipase 78 (23-300) U/L SARS-CoV-2 (PCR) Positive H (Negative) 01/07/22 Range/Units 21:06 WBC (4.5-11.0) X10^3/uL RBC (4.0-5.2) X10^6/uL Hgb (12.0-16.0) g/dL Hct (36-46) % MCV (80-100) fL MCH (26-34) PG MCHC (30-36) % RDW (11.6-14.8) % Plt Count (150-400) X10^3/uL Neut % (Auto) (50-75) % Lymph % (Auto) (25-40) % Lagrange % (Auto) (3-14) % Eos % (Auto) (2-4) % Baso % (Auto) (0-2) % Neut # (Auto) (9948-0571) /uL Lymph # (Auto) (5890-0112) /uL [place] # (Auto) (0-900) /uL Eos # (Auto) (0-450) /uL Baso # (Auto) (0-100) /uL Sodium (137-145) mmol/L Potassium (3.4-5.1) mmol/L Chloride (98-107) mmol/L Carbon Dioxide (22-32) mmol/L BUN (7-17) mg/dL Creatinine (0.52-1.04) mg/dL Estimated GFR (>60) mL/min BUN/Creatinine Ratio (6-22) Glucose (80-110) mg/dL Calcium (8.4-10.2) mg/dL Magnesium (1.6-2.3) mg/dL Total Bilirubin (0.2-1.3) mg/dL AST (14-36) IU/L ALT (<35) IU/L Alkaline Phosphatase (38-126) U/L Total Creatine Kinase (30-135) U/L CK-MB (CK-2) (<2.37) ng/mL CK-MB (CK-2) Rel Index (1.5-5.0) % Troponin I 0.307 H* (0.01-0.034) ng/mL Total Protein (6.3-8.2) g/dL Albumin (3.5-5.0) g/dL Globulin (1.7-4.1) g/dL Albumin/Globulin Ratio (1.0-2.8) Lipase (23-300) U/L SARS-CoV-2 (PCR) (Negative) Point of Care Testing Test Results Not applicable Imaging Data Chest x-ray: Radiologist's Impression: [address] [address] XRay Report Signed Patient: Lyudmila Magallanes MR#: [id number] : 1955 Acct:[id number] Age/Sex: 66 / F Date of Service: 01/07/22 Loc: ED Accession Number: [id number] ?? Procedure: XR ankle LT 2V Ordering Provider: Ara Mota D.O. PROCEDURE:? XR ANKLE LT 2V ? INDICATIONS:? deformity ? TECHNIQUE:? 2 views of the ankle were acquired.? ? COMPARISON:? None. ? FINDINGS:? ? Bones:? Fracture dislocation with a comminuted displaced fracture of the distal fibula. ? Soft tissues:? No tibiotalar joint effusion.? Achilles tendon appears normal.? ? ? IMPRESSION:? Fracture dislocation with a comminuted fracture of the distal fibula. ? Dictated by: Jese Mendez M.D. on 01/07/2022 at 15:15 ? ? Approved by: Jese Mendez M.D. on 01/07/2022 at 15:17?? post-procedural : Radiologist's Impression: Close Ankle X-Ray (Signed) Monica Pandey - 01/07/22 Ankle X-Ray (Signed) Jese Mendez - 01/07/22 Chest X-Ray (Signed) Jese Mendez - 01/07/22 Breast Ultrasound (Signed) Jese Mendez - 10/06/21 Mammogram Diagnostic (Signed) Juanpablo Dominguez - 05/22/21 Bone Densitometry 05/04/21 Lumbar Spine X-Ray (Signed) Razia Husain - 12/21/20 Ribs X-Ray (Signed) Monica Pandey - 09/29/[address] (Signed) Monica Pandey - 09/29/20 Lumbar Spine MRI (Signed) Monica Pandey - 09/29/20 Lumbar Spine MRI (Signed) Monica Pandey - 09/24/20 Breast Ultrasound (Signed) Juanpablo Dominguez - 09/21/20 Breast Ultrasound (Cancelled) 09/21/20 Mammogram Diagnostic (Signed) Hay Hughes - 04/13/20 Breast Ultrasound (Signed) Hay Hughes - 04/13/20 Mammogram Diagnostic (Signed) Danielle Burrows - 09/14/19 Breast Ultrasound (Signed) Danielle Burrows - 09/14/19 Myocardial Perfusion Scan Nuc Med (Signed) Akbar Huber - 03/30/19 Myocardial Perfusion Scan Nuc Med (Cancelled) 03/30/19 Myocardial Perfusion Scan Nuc Med (Cancelled) 03/30/19 Launch?[place] [address] XRay Report Signed Patient: Lyudmila Magallanes MR#: [id number] : 1955 Acct:[id number] Age/Sex: 66 / F Date of Service: 01/07/22 Loc: ED Accession Number: [id number] ?? Procedure: XR ankle LT 2V Ordering Provider: rAa Mota D.O. PROCEDURE:? XR ANKLE LT 2V ? INDICATIONS:? post reduction ? TECHNIQUE:? 3 views of the ankle were acquired.? ? COMPARISON:? [facility], CR, XR ANKLE LT 2V, 01/07/2022, 15:26. ? FINDINGS:? ? Bones:? Left ankle fracture dislocation redemonstrated.? Talus remains approximately 1.1 centimeters laterally displaced.? There is approximately 5 millimeters posterior-lateral displacement of the lateral malleolus fracture.? There is approximately 4 millimeters of posterior displacement of the posterior malleolus fracture. ? Soft tissues:? No tibiotalar joint effusion.? Achilles tendon appears normal.? ? ? IMPRESSION:? Status post close reduction left ankle fracture-dislocation. ? Dictated by: Monica Pandey MD, PhD on 01/07/2022 at 18:59 ? ? Approved by: Monica Pandey MD, PhD on 01/07/2022 at 19:00?? CT lower extremity: Radiologist's Impression: Close Lower Extremity CT (Signed) Monica Pandey - 01/07/22 Ankle X-Ray (Signed) Monica Pandey - 01/07/22 Ankle X-Ray (Signed) Jese Mendez - 01/07/22 Chest X-Ray (Signed) Jese Mendez - 01/07/22 Launch?[place] [address] CT Scan Report Signed Patient: Lyudmila Magallanes MR#: [id number] : 1955 Acct:[id number] Age/Sex: 66 / F Date of Service: 01/07/22 Loc: ED Accession Number: [id number] ?? Procedure: CT LE LT wo con Ordering Provider: Ara Mota D.O. PROCEDURE:? CT LE LT W CON ? INDICATIONS:? ankle fx. ? TECHNIQUE:? Noncontrast 1-1.5 mm axial sections acquired from above the tibiotalar joint to the bottom of the calcaneus, with coronal and sagittal reformats.? ? COMPARISON:? [facility], CR, XR ANKLE LT 2V, 01/07/2022, 15:26. ? FINDINGS:? Image quality:? Excellent.? ? Bones:? Mildly displaced fracture of the lateral malleolus.? Mildly displaced fracture of the posterior malleolus.? Multiple small avulsion fracture fragments noted along the medial margin of the talus in the expected location of the deep deltoid ligament.? There is widening of the medial ankle mortise related to mild lateral displacement of the talus.. ? Soft tissues:? Extensive soft tissue swelling.? Tibiotalar joint effusion. ? IMPRESSION:? Left ankle fracture-dislocation. ? ? Dictated by: Monica Pandey MD, PhD on 01/07/2022 at 19:39 ? ? Approved by: Monica Pandey MD, PhD on 01/07/2022 at 19:43?? ECG Data Attestation: I personally reviewed and interpreted this ECG as follows: Prior ECG tracings: available for review Interpretation: Sinus rhythm rate of 77, DC 144 QRS 80 QTC 549. Patient has T-wave inversion in V3 through V6 with no clear elevation. Patient has prior EKG from 11/16/2020 and September which does not show T-wave inversions. MDM Narrative Medical decision making narrative: This is a 66-year-old female comes emergency department with complaint of ground level fall about 5:00 a.m. this morning. Patient states she did not realize her ankle was broken right away but could not get up and walk around eventually realized her injury and that it was clearly dislocated and eventually found her way to us. She has had some cough, congestion, denies chest pain or shortness of breath but is COVID positive for the past 5 days she denies active chest pain or shortness of breath but has clear EKG changes compared to October of 2020. Patient had significant difficulty obtaining lab work initially and had pulses but had significant deformity with tenting and required emergent reduction. This was done in conjunction with anesthesia as there was concern for possible cardiac issues although she was chest pain free 3 and this was discussed with the patient daughter at bedside both. We did discuss even if she is having a cardiac event she will still he would reduction of her foot so this was performed in the ED. We were able to obtain blood work. She has anemia but appears to be at baseline over the past year. She has chronic kidney disease which is worsened today with a creatinine of 1.87 but 1.1 and 1.28 in September of 2020. Total CK is 6300, troponin is positive at 0.334. Or lipase is negative. Chest x-ray did not show acute changes. Patient is COVID positive. Case was discussed with Orthopedic surgery who is happy to follow with the patient she does not feel patient needs emergent surgical fixation but will need at some point. <Jose M Salcedo, DO - Last Filed: 01/07/22 23:37> Lab Data Labs: Lab Results 01/07/22 01/07/22 01/07/22 Range/Units 14:48 19:05 19:05 WBC 4.5 (4.5-11.0) X10^3/uL RBC 4.03 (4.0-5.2) X10^6/uL Hgb 11.3 L (12.0-16.0) g/dL Hct 34.1 L (36-46) % MCV 84.7 (80-100) fL MCH 28.1 (26-34) PG MCHC 33.2 (30-36) % RDW 14.0 (11.6-14.8) % Plt Count 174 (150-400) X10^3/uL Neut % (Auto) 58.2 (50-75) % Lymph % (Auto) 26.7 (25-40) % Lagrange % (Auto) 12.7 (3-14) % Eos % (Auto) 1.9 L (2-4) % Baso % (Auto) 0.5 (0-2) % Neut # (Auto) 2600 (4811-9998) /uL Lymph # (Auto) 1200 (0035-1370) /uL [place] # (Auto) 600 (0-900) /uL Eos # (Auto) 100 (0-450) /uL Baso # (Auto) 0 (0-100) /uL Sodium 139 (137-145) mmol/L Potassium 4.0 (3.4-5.1) mmol/L Chloride 104 (98-107) mmol/L Carbon Dioxide 28 (22-32) mmol/L BUN 34 H (7-17) mg/dL Creatinine 1.87 H (0.52-1.04) mg/dL Estimated GFR 29 L (>60) mL/min BUN/Creatinine Ratio 18.2 (6-22) Glucose 81 (80-110) mg/dL Calcium 8.2 L (8.4-10.2) mg/dL Magnesium 1.8 (1.6-2.3) mg/dL Total Bilirubin 0.6 (0.2-1.3) mg/dL AST 191 H (14-36) IU/L ALT 54 H (<35) IU/L Alkaline Phosphatase 93 (38-126) U/L Total Creatine Kinase 6339 H (30-135) U/L CK-MB (CK-2) 17.30 H (<2.37) ng/mL CK-MB (CK-2) Rel Index 0.3 L (1.5-5.0) % Troponin I 0.334 H* (0.01-0.034) ng/mL Total Protein 6.8 (6.3-8.2) g/dL Albumin 3.6 (3.5-5.0) g/dL Globulin 3.2 (1.7-4.1) g/dL Albumin/Globulin Ratio 1.1 (1.0-2.8) Lipase 78 (23-300) U/L SARS-CoV-2 (PCR) Positive H (Negative) 01/07/22 Range/Units 21:06 WBC (4.5-11.0) X10^3/uL RBC (4.0-5.2) X10^6/uL Hgb (12.0-16.0) g/dL Hct (36-46) % MCV (80-100) fL MCH (26-34) PG MCHC (30-36) % RDW (11.6-14.8) % Plt Count (150-400) X10^3/uL Neut % (Auto) (50-75) % Lymph % (Auto) (25-40) % [place] % (Auto) (3-14) % Eos % (Auto) (2-4) % Baso % (Auto) (0-2) % Neut # (Auto) (3098-9165) /uL Lymph # (Auto) (7765-7061) /uL [place] # (Auto) (0-900) /uL Eos # (Auto) (0-450) /uL Baso # (Auto) (0-100) /uL Sodium (137-145) mmol/L Potassium (3.4-5.1) mmol/L Chloride (98-107) mmol/L Carbon Dioxide (22-32) mmol/L BUN (7-17) mg/dL Creatinine (0.52-1.04) mg/dL Estimated GFR (>60) mL/min BUN/Creatinine Ratio (6-22) Glucose (80-110) mg/dL Calcium (8.4-10.2) mg/dL Magnesium (1.6-2.3) mg/dL Total Bilirubin (0.2-1.3) mg/dL AST (14-36) IU/L ALT (<35) IU/L Alkaline Phosphatase (38-126) U/L Total Creatine Kinase (30-135) U/L CK-MB (CK-2) (<2.37) ng/mL CK-MB (CK-2) Rel Index (1.5-5.0) % Troponin I 0.307 H* (0.01-0.034) ng/mL Total Protein (6.3-8.2) g/dL Albumin (3.5-5.0) g/dL Globulin (1.7-4.1) g/dL Albumin/Globulin Ratio (1.0-2.8) Lipase (23-300) U/L SARS-CoV-2 (PCR) (Negative) Point of Care Testing Test Results Not applicable MDM Narrative Medical decision making narrative: This is a 66-year-old female comes emergency department with complaint of ground level fall about 5:00 a.m. this morning. Patient states she did not realize her ankle was broken right away but could not get up and walk around eventually realized her injury and that it was clearly dislocated and eventually found her way to us. She has had some cough, congestion, denies chest pain or shortness of breath but is COVID positive for the past 5 days she denies active chest pain or shortness of breath but has clear EKG changes compared to October of 2020. Patient had significant difficulty obtaining lab work initially and had pulses but had significant deformity with tenting and required emergent reduction. This was done in conjunction with anesthesia as there was concern for possible cardiac issues although she was chest pain free 3 and this was discussed with the patient daughter at bedside both. We did discuss even if she is having a cardiac event she will still he would reduction of her foot so this was performed in the ED. We were able to obtain blood work. She has anemia but appears to be at baseline over the past year. She has chronic kidney disease which is worsened today with a creatinine of 1.87 but 1.1 and 1.28 in September of 2020. Total CK is 6300, troponin is positive at 0.334. Or lipase is negative. Chest x-ray did not show acute changes. Patient is COVID positive. Case was discussed with Orthopedic surgery who is happy to follow with the patient she does not feel patient needs emergent surgical fixation but will need at some point. Dr salcedo: Received turned over. Awaiting 2nd troponin which is unchanged from prior. Will continue with plan to admit to hospital for further evaluation and treatment. Dr. Scruggs with orthopedics was informed of the admission and stated that there was no emergent intervention needed for her ankle fracture is now it is in an acceptable reduced state. YRSI Nava notified of the unchanged troponin. Discharge Plan Departure Patient Disposition: Admitted As Inpatient Clinical Impression: COVID-19 virus infection, Non-ST elevation ID (NSTEMI), Closed dislocation of ankle Admit Date/Time: 01/07/22 21:59 Admit Provider: Jessie Nava
[2022-01-07] MEDS: MORPHINE 4 MG/ML INJ IV ×2 (16:52→18:07)
--- NOTE | 2022-01-07 18:37 | DI.RAD.S_ITS ---
PROCEDURE: XR ANKLE LT 2V INDICATIONS: post reduction TECHNIQUE: 3 views of the ankle were acquired. COMPARISON: [facility], CR, XR ANKLE LT 2V, 01/07/2022, 15:26. FINDINGS: Bones: Left ankle fracture dislocation redemonstrated. Talus remains approximately 1.1 centimeters laterally displaced. There is approximately 5 millimeters posterior-lateral displacement of the lateral malleolus fracture. There is approximately 4 millimeters of posterior displacement of the posterior malleolus fracture. Soft tissues: No tibiotalar joint effusion. Achilles tendon appears normal. IMPRESSION: Status post close reduction left ankle fracture-dislocation. Dictated by: Monica Pandey MD, PhD on 01/07/2022 at 18:59 Approved by: Monica Pandey MD, PhD on 01/07/2022 at 19:00
--- NOTE | 2022-01-07 18:42 | DI.CT.S_ITS ---
PROCEDURE: CT LE LT W CON INDICATIONS: ankle fx. TECHNIQUE: Noncontrast 1-1.5 mm axial sections acquired from above the tibiotalar joint to the bottom of the calcaneus, with coronal and sagittal reformats. COMPARISON: [facility], CR, XR ANKLE LT 2V, 01/07/2022, 15:26. FINDINGS: Image quality: Excellent. Bones: Mildly displaced fracture of the lateral malleolus. Mildly displaced fracture of the posterior malleolus. Multiple small avulsion fracture fragments noted along the medial margin of the talus in the expected location of the deep deltoid ligament. There is widening of the medial ankle mortise related to mild lateral displacement of the talus.. Soft tissues: Extensive soft tissue swelling. Tibiotalar joint effusion. IMPRESSION: Left ankle fracture-dislocation. Dictated by: Monica Pandey MD, PhD on 01/07/2022 at 19:39 Approved by: Monica Pandey MD, PhD on 01/07/2022 at 19:43
--- NOTE | 2022-01-07 19:09 | P.PCN_ITS ---
Procedures Date/Time Date of procedure: 01/07/22 Time of procedure: 18:30 Procedural Sedation Indications: fracture/dislocation reduction Presedation evaluation: 66y/o with no significant cardiac history presented with grossly displaced ankle fractur. ED workup consisted of ECG, which showed new TWI compared with ECG from a year ago. Pt denied CP/SOB/SCHMITT, but is limited by back pain, lumbar stenosis. Pt denies changes in exercise tolerance due to CP/SOB, but did report BLE edema roughly September-October of this year which resolved with compression stalkings. ASA class: III (E) Time of last PO intake: 00:00 (not since yesterday) Preparation: coding compliance specialist applied, pulse oximeter, capnometry used, supplemental O2 applied, suction/airway equipment at bedside and IV secured Midazolam: IV Midazolam dose (mg): 2 Ketamine: IV Ketamine dose (mg): 20 IV propofol dose (mg): 30 Patient tolerated procedure: well and no complications Interventions: airway repositioned Additional comments: Tolerated well. SaO2, HR, BP remained stable and within normal range throughout. Brief jaw thrust after reduction.
[2022-01-07 19:12] LABS: Add Manual Diff / Slide Review NO; Basophils Absolute Auto 0 /uL (0-100); Basophils Percent Auto 0.5 % (0-2); Eosinophils Absolute Auto 100 /uL (0-450); Eosinophils Percent Auto 1.9 % (2-4); Hematocrit 34.1 % (36-46); Hemoglobin 11.3 g/dL (12.0-16.0); Lymphocytes Absolute Auto 1200 /uL (1100-4500); Lymphocytes Percent Auto 26.7 % (25-40); Mean Corpuscular HGB Conc 33.2 % (30-36); Mean Corpuscular Hemoglobin 28.1 PG (26-34); Mean Corpuscular Volume 84.7 fL (80-100); Monocytes Absolute Auto 600 /uL (0-900); Monocytes Percent Auto 12.7 % (3-14); Neutrophils Absolute Auto 2600 /uL (1500-7000); Neutrophils Percent Auto 58.2 % (50-75); Platelet Count 174 X10^3/uL (150-400); Red Blood Cell Count 4.03 X10^6/uL (4.0-5.2); White Blood Cell Count 4.5 X10^3/uL (4.5-11.0)
[2022-01-07 19:22] LABS: Alanine Aminotransferase 54 IU/L (<35); Albumin 3.6 g/dL (3.5-5.0); Albumin Globulin Ratio 1.1 (1.0-2.8); Alkaline Phosphatase 93 U/L (38-126); Aspartate Aminotransferase 191 IU/L (14-36); BUN Creatinine Ratio 18.2 (6-22); Bilirubin Total 0.6 mg/dL (0.2-1.3); Blood Urea Nitrogen 34 mg/dL (7-17); Calcium 8.2 mg/dL (8.4-10.2); Carbon Dioxide 28 mmol/L (22-32); Chloride 104 mmol/L (98-107); Estimated Glomerular Filt Rate 29 mL/min (>60); Globulin 3.2 g/dL (1.7-4.1); Glucose 81 mg/dL (80-110); HEMOLYSIS < 15 (0-50); Lipase 78 U/L (23-300); Magnesium 1.8 mg/dL (1.6-2.3); Sodium 139 mmol/L (137-145); Total Protein 6.8 g/dL (6.3-8.2)
[2022-01-07 19:40] LABS: Creatine Kinase 6339 U/L (30-135)
[2022-01-07 19:52] LABS: CKMB % Relative Index 0.3 % (1.5-5.0)
[2022-01-07 19:59] LABS: Troponin I 0.334 ng/mL (0.01-0.034)
[2022-01-07] MEDS: ASPIRIN 81 MG CHEW TAB 324 MG PO (20:50)
[2022-01-07 21:46] LABS: Troponin I 0.307 ng/mL (0.01-0.034)
[2022-01-08] VITALS (9 sets, daily range): BP systolic 133–153; BP diastolic 63–93; PULSE 87–96; RESP 16–18; TEMP 36–37.1; O2SAT 97–100
[2022-01-08] MEDS: ACETAMINOPHEN 325 MG TABLET 650 MG PO (00:27)
--- NOTE | 2022-01-08 00:27 | PM.HP.1 ---
History of Present Illness History of Present Illness Date Patient Seen: 01/08/22 Time Patient Seen: 00:27 Chief complaint: Lt. ankle with deformity Narrative: Lyudmila Magallanes is a 66 y.o. female with no reported chronic conditions except for right foot drop s/p lumbar spine surgery in 2020, was in her usual state of health when she fell at home. She was wearing compression stockings due to lower leg swelling, slipped and fractured her left ankle. She was ecently in [place], where she contracted COVID, with multiple family members testing positive and with varying symptomology. She is unvaccinated, and does not plan to. Said none of her family members had significant symptoms. Productive cough early in the course, now gone. Is very thirsty and has had mild diarrhea since venecia COVID. Denies sore throat, difficulty swallowing, shortness of breath, chest pain, nausea vomiting, abdominal pain, dysuria, or constipation. Her main complaint is the pain in her left ankle. In the emergency department surgery was consulted and recommended manual reduction of her ankle fracture. Dr. Navarro and Dr. Mota reduced her ankle fracture and she was recommended for follow-up with Dr. Scruggs orthopedic surgery for follow-up. She was requested for admission due to an elevated troponin an inverted T-wave changes on EKG in leads V4-6. They consulted Cardiology and wanted to have her troponins trended overnight, and have an echocardiogram to rule out myocarditis secondary to COVID-19. Her initial troponin was 0.334 and her 2nd troponin started to trend down even though it is still elevated at 0.307. Chest x-ray done in the ED was read as normal. She had a pre and post reduction x-ray of her left ankle and a CT of her left ankle. It noted left ankle fracture and dislocation with extensive soft tissue swelling and tibiotalar joint effusion. She is afebrile, blood pressure 143/85, heart rate 83, respiratory rate 16, oxygen saturation of 98% on room air she weighs 90.7 kg with a BMI of 28.7. She is mildly anemic with hemoglobin of 11.3 and hematocrit of 34.1. She does have a creatinine bump of 1.87 with a EGFR of 29 in the setting of chronic kidney disease, calcium is 8.2, AST is 191, ALT 54, total CK was 6339 CK-MB is 17.3, troponins were 0.334 and 0.307 on repeat, COVID-19 PCR is positive Patient History Medical History Arthritis Easy bruisability Glaucoma Surgical History History of bilateral cataract extraction History of eye surgery History of spinal fusion (01/2014) History of trabeculectomy Hx of cervical spine surgery (03/2001) Hx of tubal ligation Family & Social History Family History Mother Infection, dialysis vascular access Social History: household members none Prior Living Arrangements Apartment/Condo Safety & Behavioral: Feels Safe in Current Yes Environment Been Physically Hurt or No Threatened By a Person Tobacco & Substance use: Tobacco type remote short hx of tobacco use Smoking Status Former smoker alcohol intake current alcohol intake frequency holiday/special occasion Substance Use Type does not use Meds Home Medications and Allergies Home Medications Medication Instructions Recorded Confirmed Type divalproex 125 mg tablet,delayed 250 mg PO BID 09/29/20 01/07/22 History release eszopiclone 3 mg tablet 3 mg PO BEDTIME PRN Sleep 09/29/20 01/07/22 History latanoprost 0.005 % eye drops 1 drp EYE-BOTH BEDTIME 09/29/20 01/07/22 History mirabegron 50 mg tablet,extended 50 mg PO DAILY 09/29/20 01/07/22 History release 24 hr (Myrbetriq) paroxetine HCl 40 mg tablet 40 mg PO DAILY 09/29/20 01/07/22 History pregabalin 75 mg capsule 75 mg PO Q8H 09/29/20 01/07/22 History sumatriptan succinate 100 mg tablet 100 mg PO PRN PRN Migraine Headache 09/29/20 01/07/22 History timolol maleate 0.5 % once daily 1 drp EYE-BOTH BID 09/29/20 01/07/22 History eye drops tizanidine 4 mg tablet 8 mg PO BEDTIME #30 tabs 12/24/20 01/07/22 Rx brinzolamide 1 %-brimonidine 0.2 % 1 drp EYE-BOTH TID 01/07/22 01/07/22 History eye drops,suspension (Simbrinza) solifenacin 10 mg tablet 10 mg PO QAM 01/07/22 01/07/22 History Allergies Allergy/AdvReac Type Severity Reaction Status Date / Time Penicillins Allergy Severe Rash Verified 01/07/22 14:59 tetracycline Allergy Severe Rash Verified 01/07/22 14:59 Review of Systems Review of Systems ROS: Yes All systems reviewed with the patient and are negative except as otherwise documented Exam Vital Signs (past 8 hours): - 01/07/22 18:56 01/07/22 16:30 01/07/22 17:00 Temperature Pulse Rate 79 79 81 Respiratory Rate 14 14 19 Blood Pressure Pulse Oximetry 99 99 Oxygen Flow Rate 01/07/22 17:30 01/07/22 17:48 01/07/22 17:48 Temperature Pulse Rate 81 79 Respiratory Rate 14 12 Blood Pressure 138/90 Pulse Oximetry 98 65 L Oxygen Flow Rate 01/07/22 18:00 01/07/22 18:00 01/07/22 18:27 Temperature Pulse Rate 79 Respiratory Rate 22 Blood Pressure 132/78 142/75 H Pulse Oximetry 100 Oxygen Flow Rate 01/07/22 18:27 01/07/22 18:30 01/07/22 18:30 Temperature Pulse Rate 81 84 Respiratory Rate 10 L 20 Blood Pressure 124/64 Pulse Oximetry 82 L 99 Oxygen Flow Rate 01/07/22 18:35 01/07/22 18:35 01/07/22 18:40 Temperature Pulse Rate 82 Respiratory Rate 15 Blood Pressure 125/66 126/68 Pulse Oximetry 100 Oxygen Flow Rate 01/07/22 18:40 01/07/22 18:45 01/07/22 18:45 Temperature Pulse Rate 81 78 Respiratory Rate 15 13 Blood Pressure 122/72 Pulse Oximetry 100 99 Oxygen Flow Rate 01/07/22 18:50 01/07/22 18:50 01/07/22 19:00 Temperature Pulse Rate 80 78 Respiratory Rate 20 17 Blood Pressure 133/65 Pulse Oximetry 99 99 Oxygen Flow Rate 01/07/22 19:11 01/07/22 19:11 01/07/22 19:15 Temperature Pulse Rate 79 79 Respiratory Rate 29 H 15 Blood Pressure 140/73 Pulse Oximetry 98 99 Oxygen Flow Rate 01/07/22 19:15 01/07/22 19:30 01/07/22 20:00 Temperature Pulse Rate 84 81 Respiratory Rate 24 12 Blood Pressure 133/71 191/81 H Pulse Oximetry 99 Oxygen Flow Rate 01/07/22 20:30 01/07/22 21:00 01/07/22 21:30 Temperature Pulse Rate 83 80 77 Respiratory Rate 12 15 15 Blood Pressure Pulse Oximetry 99 100 98 Oxygen Flow Rate 01/07/22 22:10 01/07/22 22:12 01/07/22 22:12 Temperature Pulse Rate 81 79 Respiratory Rate 14 Blood Pressure 109/62 Pulse Oximetry 99 98 Oxygen Flow Rate 01/07/22 22:45 Temperature 97.1 F L Pulse Rate 83 Respiratory Rate 16 Blood Pressure 143/85 H Pulse Oximetry 98 Oxygen Flow Rate 0 Oxygen Delivery Method Room Air Oxygen Flow Rate 0 Narrative Exam Narrative: Gen: Alert, oriented, well-developed 66 y.o. female, appears mildly uncomfortable HEENT: normocephalic, atraumatic, conjunctiva clear, sclera non-icteric, oral mucosa pink and moist Neck: supple, full ROM, no JVD, trachea is midline Resp: Lungs CTA, non-labored breathing CV: RRR, no murmur or rubs Abd: soft, non-tender, normoactive BTs Skin: no lesions or rashes, dry and intact Neuro: Alert and oriented X 4 w/no focal deficits. Speech clear and coherent. Extremities: Left leg elevated on a pillow wrapped in a dressing, is normall ambulatory with a walker, negative Narciso?s sign Psyche: normal mood and affect. Objective Labs Result Diagrams: 01/08/22 03:50 01/08/22 03:50 Labs: Laboratory Results - last 24 hr 01/07/22 01/07/22 01/07/22 14:48 19:05 19:05 WBC 4.5 RBC 4.03 Hgb 11.3 L Hct 34.1 L MCV 84.7 MCH 28.1 MCHC 33.2 RDW 14.0 Plt Count 174 Neut % (Auto) 58.2 Lymph % (Auto) 26.7 [place] % (Auto) 12.7 Eos % (Auto) 1.9 L Baso % (Auto) 0.5 Neut # (Auto) 2600 Lymph # (Auto) 1200 [place] # (Auto) 600 Eos # (Auto) 100 Baso # (Auto) 0 Sodium 139 Potassium 4.0 Chloride 104 Carbon Dioxide 28 BUN 34 H Creatinine 1.87 H Estimated GFR 29 L BUN/Creatinine Ratio 18.2 Glucose 81 Calcium 8.2 L Magnesium 1.8 Total Bilirubin 0.6 AST 191 H ALT 54 H Alkaline Phosphatase 93 Total Creatine Kinase 6339 H CK-MB (CK-2) 17.30 H CK-MB (CK-2) Rel Index 0.3 L Troponin I 0.334 H* Total Protein 6.8 Albumin 3.6 Globulin 3.2 Albumin/Globulin Ratio 1.1 Lipase 78 SARS-CoV-2 (PCR) Positive H 01/07/22 01/07/22 21:06 Unknown WBC RBC Hgb Hct MCV MCH MCHC RDW Plt Count Neut % (Auto) Lymph % (Auto) [place] % (Auto) Eos % (Auto) Baso % (Auto) Neut # (Auto) Lymph # (Auto) [place] # (Auto) Eos # (Auto) Baso # (Auto) Sodium Potassium Chloride Carbon Dioxide BUN Creatinine Estimated GFR BUN/Creatinine Ratio Glucose Calcium Magnesium Total Bilirubin AST ALT Alkaline Phosphatase Total Creatine Kinase CK-MB (CK-2) CK-MB (CK-2) Rel Index Troponin I 0.307 H* Cancelled Total Protein Albumin Globulin Albumin/Globulin Ratio Lipase SARS-CoV-2 (PCR) Assessment & Plan Assessment & Plan narrative: Lyudmila Magallanes is admitted for pain control associated with a recent left ankle fracture and status post ankle fracture reduction done in the emergency department and for further evaluation of elevated troponins and ST inversion seen on EKG suspected of possibly being myocarditis in the setting of COVID-19. Elevated troponins and abnormal EKG changes Her troponins have started to trend down we will obtain 1 more at 3:00 a.m. 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 COVID-19 pneumonia, acute, present on admission She is started on IV remdesivir, dexamethasone and oral Baricitanab She lost her IV access, was difficult to place in the ED but was able to have a mid or PICC line placed by the after hours PICC RN Left ankle fracture, acute, present on admission Pain control with tylenol and tramadol IV morphine for breakthrough pain VTE Prophylaxis: Wells risk score 0 X Enoxaparin 40 mg subQ once daily right leg SCD Patient is admitted to the inpatient service due to the severity of disease, risks of further disease progression and this stay is expected to exceed 2 midnights. FEN: IV fluids: saline lock, diet: heart healthy, labs: CBC, C/BMP, liver enzymes, Mag, PT/INR Consultants Dr. Scruggs, Orthopedic surgery, care and involvement in the patient?s care is appreciated. Dispo: probable discharge to home Code status: Full code as discussed with the patient who identifies her daughter as her surrogate and POA. [X] I have utilized all available immediate resources to obtain, update, or review of the patient's current medications COVID-19 COVID-19 status: Positive Result date/Date tested (Pos, Neg/Pending): 01/07/22 Scores Wells' Criteria for PE Clinical signs and symptoms of DVT: No PE is #1 Dx or equally likely: No Heart rate > 100: No Immobilization at least 3 days or surg in previous 4 weeks: No History of PE or DVT: No Hemoptysis: No Malignancy w/Treatment within 6 months or palliative: No Wells' PE Score total: 0 Quality VTE Deep Vein Thrombosis/Pulmonary Embolism Present on Admission: No MIPS - Admit I confirm the patient?s Advance Care Plan is present, Code status is documented, Surrogate decision maker is in patient?s record [If Yes, STOP here]: Yes MIPS - DC The patient has current or prior documentation of left ventricular ejection fraction (LVEF) less than 40%, or moderate or severely depressed left ventricular systolic function.: No
[2022-01-08] MEDS: REMDESIVIR 200 MG in SODIUM CHLORIDE 0.9% 210 ML 250 MG IV (03:33)
[2022-01-08] MEDS: MORPHINE 2 MG/ML INJ IV (03:40)
[2022-01-08 04:14] LABS: Add Manual Diff / Slide Review NO; Basophils Absolute Auto 0 /uL (0-100); Basophils Percent Auto 0.6 % (0-2); Eosinophils Absolute Auto 200 /uL (0-450); Eosinophils Percent Auto 3.9 % (2-4); Hemoglobin 10.7 g/dL (12.0-16.0); Lymphocytes Absolute Auto 1100 /uL (1100-4500); Lymphocytes Percent Auto 26.4 % (25-40); Mean Corpuscular HGB Conc 33.4 % (30-36); Mean Corpuscular Hemoglobin 28.2 PG (26-34); Mean Corpuscular Volume 84.2 fL (80-100); Monocytes Absolute Auto 500 /uL (0-900); Monocytes Percent Auto 11.4 % (3-14); Neutrophils Absolute Auto 2300 /uL (1500-7000); Neutrophils Percent Auto 57.7 % (50-75); Platelet Count 163 X10^3/uL (150-400); Red Cell Distribution Width 14.3 % (11.6-14.8)
[2022-01-08 04:23] LABS: Alanine Aminotransferase 46 IU/L (<35); Albumin 3.1 g/dL (3.5-5.0); Albumin Globulin Ratio 1.1 (1.0-2.8); Alkaline Phosphatase 77 U/L (38-126); Aspartate Aminotransferase 155 IU/L (14-36); BUN Creatinine Ratio 22.9 (6-22); Bilirubin Total 0.6 mg/dL (0.2-1.3); Bilirubin Unconjugated 0.4 mg/dL (0.0-1.1); Blood Urea Nitrogen 33 mg/dL (7-17); Calcium 7.9 mg/dL (8.4-10.2); Carbon Dioxide 28 mmol/L (22-32); Chloride 103 mmol/L (98-107); Estimated Glomerular Filt Rate 40 mL/min (>60); Globulin 2.9 g/dL (1.7-4.1); Glucose 94 mg/dL (80-110); HEMOLYSIS 21 (0-50); Magnesium 1.8 mg/dL (1.6-2.3); Potassium 3.9 mmol/L (3.4-5.1); Sodium 138 mmol/L (137-145)
[2022-01-08 04:58] LABS: Troponin I 0.281 ng/mL (0.01-0.034)
[2022-01-08 05:23] LABS: Thyroid Stimulating Hormone 0.628 uIU/mL (0.47-4.68)
--- NOTE | 2022-01-08 07:51 | PM.CN ---
History of Present Illness Consult details Chief complaint: Lt. ankle with deformity Reason for consult: Left ankle fracture Narrative: Lyudmila Magallanes is a 66 y.o. female with no reported chronic conditions except for right foot drop s/p lumbar spine surgery in 2020. She fell at home last night and fractured her left ankle. She was recently contracted COVID, with multiple family members testing positive and with varying symptomology.? She is unvaccinated and currently asymptomatic from COVID. In the emergency department Dr Ashley Scruggs was consulted and recommended manual reduction of her ankle fracture.? Dr. Navarro and Dr. Mota reduced her ankle fracture.? She was requested for admission due to an elevated troponin an inverted T-wave changes on EKG in leads V4-6.? Cardiology and wanted to have her troponins trended overnight, and have an echocardiogram to rule out myocarditis secondary to COVID-19.? Meds Home Medications and Allergies Home Medications Medication Instructions Recorded Confirmed Type divalproex 125 mg tablet,delayed 250 mg PO BID 09/29/20 01/07/22 History release eszopiclone 3 mg tablet 3 mg PO BEDTIME PRN Sleep 09/29/20 01/07/22 History latanoprost 0.005 % eye drops 1 drp EYE-BOTH BEDTIME 09/29/20 01/07/22 History mirabegron 50 mg tablet,extended 50 mg PO DAILY 09/29/20 01/07/22 History release 24 hr (Myrbetriq) paroxetine HCl 40 mg tablet 40 mg PO DAILY 09/29/20 01/07/22 History pregabalin 75 mg capsule 75 mg PO Q8H 09/29/20 01/07/22 History sumatriptan succinate 100 mg tablet 100 mg PO PRN PRN Migraine Headache 09/29/20 01/07/22 History timolol maleate 0.5 % once daily 1 drp EYE-BOTH BID 09/29/20 01/07/22 History eye drops tizanidine 4 mg tablet 8 mg PO BEDTIME #30 tabs 12/24/20 01/07/22 Rx brinzolamide 1 %-brimonidine 0.2 % 1 drp EYE-BOTH TID 01/07/22 01/07/22 History eye drops,suspension (Simbrinza) solifenacin 10 mg tablet 10 mg PO QAM 01/07/22 01/07/22 History Allergies Allergy/AdvReac Type Severity Reaction Status Date / Time Penicillins Allergy Severe Rash Verified 01/07/22 14:59 tetracycline Allergy Severe Rash Verified 01/07/22 14:59 Exam Vital Signs (past 8 hours): - 01/08/22 00:00 Pulse Oximetry 98 Oxygen Delivery Method Room Air Oxygen Delivery Method Room Air Oxygen Flow Rate 0 Objective Labs Result Diagrams: 01/08/22 03:50 01/08/22 03:50 Labs: Laboratory Results - last 24 hr 01/07/22 01/07/22 01/07/22 14:48 19:05 19:05 WBC 4.5 RBC 4.03 Hgb 11.3 L Hct 34.1 L MCV 84.7 MCH 28.1 MCHC 33.2 RDW 14.0 Plt Count 174 Neut % (Auto) 58.2 Lymph % (Auto) 26.7 [place] % (Auto) 12.7 Eos % (Auto) 1.9 L Baso % (Auto) 0.5 Neut # (Auto) 2600 Lymph # (Auto) 1200 [place] # (Auto) 600 Eos # (Auto) 100 Baso # (Auto) 0 Sodium 139 Potassium 4.0 Chloride 104 Carbon Dioxide 28 BUN 34 H Creatinine 1.87 H Estimated GFR 29 L BUN/Creatinine Ratio 18.2 Glucose 81 Calcium 8.2 L Magnesium 1.8 Total Bilirubin 0.6 Conjugated Bilirubin Unconjugated Bilirubin AST 191 H ALT 54 H Alkaline Phosphatase 93 Total Creatine Kinase 6339 H CK-MB (CK-2) 17.30 H CK-MB (CK-2) Rel Index 0.3 L Troponin I 0.334 H* Total Protein 6.8 Albumin 3.6 Globulin 3.2 Albumin/Globulin Ratio 1.1 Lipase 78 TSH SARS-CoV-2 (PCR) Positive H 01/07/22 01/07/22 01/08/22 21:06 Unknown 03:50 WBC RBC Hgb Hct MCV MCH MCHC RDW Plt Count Neut % (Auto) Lymph % (Auto) [place] % (Auto) Eos % (Auto) Baso % (Auto) Neut # (Auto) Lymph # (Auto) [place] # (Auto) Eos # (Auto) Baso # (Auto) Sodium Potassium Chloride Carbon Dioxide BUN Creatinine Estimated GFR BUN/Creatinine Ratio Glucose Calcium Magnesium Total Bilirubin Conjugated Bilirubin Unconjugated Bilirubin AST ALT Alkaline Phosphatase Total Creatine Kinase CK-MB (CK-2) CK-MB (CK-2) Rel Index Troponin I 0.307 H* Cancelled 0.281 H* Total Protein Albumin Globulin Albumin/Globulin Ratio Lipase TSH SARS-CoV-2 (PCR) 01/08/22 01/08/22 01/08/22 03:50 03:50 03:50 WBC 4.0 L RBC 3.80 L Hgb 10.7 L Hct 32.0 L MCV 84.2 MCH 28.2 MCHC 33.4 RDW 14.3 Plt Count 163 Neut % (Auto) 57.7 Lymph % (Auto) 26.4 [place] % (Auto) 11.4 Eos % (Auto) 3.9 Baso % (Auto) 0.6 Neut # (Auto) 2300 Lymph # (Auto) 1100 [place] # (Auto) 500 Eos # (Auto) 200 Baso # (Auto) 0 Sodium 138 Potassium 3.9 Chloride 103 Carbon Dioxide 28 BUN 33 H Creatinine 1.44 H Estimated GFR 40 L BUN/Creatinine Ratio 22.9 H Glucose 94 Calcium 7.9 L Magnesium 1.8 Total Bilirubin 0.6 Conjugated Bilirubin 0.0 Unconjugated Bilirubin 0.4 AST 155 H ALT 46 H Alkaline Phosphatase 77 Total Creatine Kinase CK-MB (CK-2) CK-MB (CK-2) Rel Index Troponin I Total Protein 6.0 L Albumin 3.1 L Globulin 2.9 Albumin/Globulin Ratio 1.1 Lipase TSH 0.628 SARS-CoV-2 (PCR) [facility] Medical History Arthritis Easy bruisability Glaucoma Surgical History History of bilateral cataract extraction History of eye surgery History of spinal fusion (01/2014) History of trabeculectomy Hx of cervical spine surgery (03/2001) Hx of tubal ligation Family History Mother Infection, dialysis vascular access Social History household members: none Tobacco & Substance Use Smoking Status: Former smoker alcohol intake: current Assessment & Plan Assessment and plan (1) Closed dislocation of ankle: Status: Acute Plan: Dr Scruggs has reviewed post-reduction films. Recommend pt to continue NWB to LLE in splint. Postpone surgery for at least two weeks for pt to clear COVID. Pt to follow up with ortho as outpatient in 7-10 days. Time Spent With Patient Critical Care time: I spent a total of [] minutes of critical care time on this patient's care today; this time is exclusive of procedural time.
[2022-01-08] MEDS: ENOXAPARIN 40 MG/0.4 ML SYRINGE SUBCUT (08:41)
[2022-01-08] MEDS: DOCUSATE 100 MG CAPSULE PO ×2 (08:42→21:39)
[2022-01-08 09:26] LABS: Troponin I 0.249 ng/mL (0.01-0.034)
--- NOTE | 2022-01-08 10:00 | DI.ECHO.S_ITS ---
[facility] +---------+ : : [address] : : : : [id number] : : : : Phone: [phone]+ Echocardiogram Report + + :Name: SEEMA KILLIAN Study Date: 01/08/2022 Height: 70 in : :[facility] ReadingLocation: Weight: 203 lb : : Gender: Female BSA: 2.1 m2 : :: 1955 Age: 66 yrs BP: 109/62 mmHg: :Reason For Study: ELEVATED TROPONIN, MYOCARDITIS, COVID : :POSITIVE : :Ordering Physician: Noe LASTformed By: Tara Hooper : :Referring: CICI LAST : + + Interpretation Summary 1) Normal left ventricular size and thickness with mildly to moderately reduced systolic function (EF 40-45%). 2) The distal anterolateral wall, the distal inferolateral wall, and the entire apical cap are severely hypokinetic to akinetic. 3) Normal right ventricular size and function. 4) No signficant valvular abnormalities. 5) No prior Echo available for comparison. Procedure: A two-dimensional transthoracic echocardiogram with color flow and Doppler was performed. The study quality was technically adequate. There is no prior echocardiogram noted for this patient. The patient was in sinus rhythm with heart rates between 83-95 bpm during the exam. Left Ventricle: The left ventricle is normal in size and wall thickness. The ejection fraction is estimated to be 40-45%. The distal anterolateral wall, the distal inferolateral wall, and the entire apical cap are severely hypokinetic to akinetic. Right Ventricle: The right ventricle is normal in size and function. Atria: The left atrium is mildly dilated. Right atrial size is normal. There is no Doppler evidence for an interatrial shunt. Mitral Valve: The mitral valve is normal in structure and function. There is mild mitral regurgitation. Aortic Valve: The aortic valve is trileaflet. The aortic valve opens well. There is no aortic valve stenosis. No aortic regurgitation is present. Tricuspid Valve: The tricuspid valve is normal in structure and function. There is mild tricuspid regurgitation. Pulmonic Valve: The pulmonic valve leaflets are thin and pliable; valve motion is normal. There is trace pulmonic regurgitation. Great Vessels: The aortic root is normal size. The dimensions of the ascending aorta are normal. The IVC is of normal diameter and collapses greater than 50% with a sniff. This suggests a low right atrial pressure of 3 mm Hg. Pericardium/ Pleura There is no pericardial effusion. There is no pleural effusion. MMode/2D Measurements & Calculations LVIDd: 5.2 cm LVOT diam: 2.0 cm LVIDs: 3.8 cm Ao root diam: 3.3 cm FS: 26.9 % asc Aorta Diam: 3.3 cm EPSS: 0.79 cm Ao Arch Diam (Prox Trans): 3.2 cm IVSd: 0.86 cm LVPWd: 0.94 cm LV lucio. diameter/BSA (cm/m^2): 2.5 LV sys. diameter/BSA (cm/m^2): 1.8 LA A2 area: 27.2 cm2 RA long axis: 6.1 cm LA A4 area: 21.5 cm2 RA area: 19.0 cm2 LA length (vol): 6.5 cm RA vol: 50.0 ml LA vol: 76.6 ml RA : 23.8 ml/m2 LA vol index: 36.5 ml/m2 IVC diam: 1.0 cm RVD1 (basal): 3.8 cm RVD2 (mid): 2.5 cm TAPSE: 2.9 cm Doppler Measurements & Calculations Ao V2 max: 99.3 cm/sec LVOT Max Dante: 93.1 cm/sec Ao V2 mean: 70.3 cm/sec LV V1 max P.5 mmHg Ao max P.9 mmHg LV V1 VTI: 17.3 cm Ao mean P.2 mmHg LUIS M(I,D): 3.0 cm2 Ao V2 VTI: 17.4 cm LUIS M(V,D): 2.9 cm2 sev ratio: 0.99 LUIS M indexed to BSA (cm^2/m^2): 1.4 MV E max dante: 61.4 cm/sec TR max dante: 257.8 cm/sec MV A max dante: 53.8 cm/sec TR max P.6 mmHg MV E/A: 1.1 PA V2 max: 81.9 cm/sec Med Peak E' Dante: 5.5 cm/sec PA V2 mean: 56.6 cm/sec E/E' med: 11.1 PA mean P.4 mmHg Lat Peak E' Dante: 9.2 cm/sec PA pr(Accel): 22.5 mmHg E/E' lat: 6.7 E/e' average: 8.9 MV dec time: 0.21 sec SVLVOT): 52.6 ml Reading Physician:01:04 PM
--- NOTE | 2022-01-08 13:00 | CM.DANOTE ---
Addendum entered by Lauryn Suresh R.N. 01/08/22 15:10: Called Elaine at [facility] and went ahead and sent her the referral. Had Dr. Minaya sign face to face, patient not medically ready for discharge, and not yet able to work with P.T. Sent her over initial referral including face sheet, orders, face to face, H&P. Original Note: DCP: Case received, EMR reviewed. Called patient from his room, since she is COVID positive, and was able to obtain information regarding her baseline activity status prior to hospitalization, as well as her current living situation. DCP assessment completed with information currently available. Patient is a 66 year old female who admitted yesterday evening to the care of the hospitalist team. [facility]: confirmed: [facility]. Patient came to the hospital via ambulance secondary to having a ground level fall at home. According to notes, patient had fallen at home, and sustained a dislocated ankle. She has seen ortho, and she also was noted to have an increase in her troponin. Patient also is positive for COVID, and unvaccinated. She will be having an echo and stress test today. According to hospitalist, she is not yet medically ready to work with P.T, due to her cardiac issues. Called patient in her room. She is pleasant, alert and oriented. Confirmed that she resides in [place]. She uses a cane at her baseline. She resides alone, has a daughter, Shelbi Yi, and patient indicated, she lives close by, and should be able to help her when she goes home. At her baseline, before the fall, patient indicated that she has been driving, uses her cane for mobility. Confirmed that she does [facility]. She is interested in home health services upon discharge, has no preferences upon agencies. [facility] has had some recent openings, she is open to this. P: DCP to continue to follow for needs. At this time, plan is home with [facility]. She will benefit with nursing, P.T, O.T, and may also need bath aide. Will need to get signed face to face. Lauryn Suresh RN/Class [employer] Regional D[employer] Discharge Planning/Care Management CM Discharge Assessment Start: 01/08/22 12:30 Freq: Status: Active Protocol: Document 01/08/22 12:56 (Rec: 01/08/22 13:00 [id number]) Discharge Planning Assessment Assigned Chief Digital Media Officer Lauryn Suresh RN/Class [employer] Regional D[employer] Advance Directives? No History Provided By Patient,Medical Record Prior Living Arrangements Apartment/Condo Household Members none Comment Patient indicated her daughter lives nearby. Type of transporation used prior to Drives own vehicle admit Independent with ADL's Yes Caregiver for Another No DME Already Rented / Owned Cane Patient/Family Preference Home with Home Health Comment Have discussed with patient. Comment Patient does live alone and daughter will assist as much as possible. Will see how she does with P.T. Discharge Plan Home with Home Health Transportation Arrangement Daughter Referrals Initiated Home Health Additional Comment Can send to [facility] If patient plan is home with home health Will need hospitalist to sign. : Has signed face to face form been completed? Whiteboard Updated in Patient Room with No name and ext. # of Chief Digital Media Officer Comment Patient is COVID positive Review Status In Process Next Review Type Continued Stay Review
[2022-01-08] MEDS: METOPROLOL ER 25 MG TABLET PO ×2 (14:17→21:39)
[2022-01-08] MEDS: CLOPIDOGREL 75 MG TABLET PO (14:18)
[2022-01-08] MEDS: ASPIRIN EC 81 MG TABLET PO (14:18)
[2022-01-08 14:29] LABS: INR 1.1 (0.9-1.3); Prothrombin Time 12.8 SECONDS (10.1-12.7)
[2022-01-08 14:32] LABS: PTT Partial Thromboplastin Tim 30 SECONDS (26.4-36.2)
[2022-01-08] MEDS: HEPARIN DRIP 25,000 UNIT/500 ML IV.SOLN 22.1 UNIT IV (14:50)
[2022-01-08] MEDS: HEPARIN DRIP 25,000 UNIT/500 ML IV.SOLN 22.08 UNIT IV (16:20)
[2022-01-08 16:59] LABS: COVID19 -Nasal RAPID POSITIVE (Negative)
--- NOTE | 2022-01-08 18:15 | PC.NURSE ---
Pt is AxOx4, needs 2 person assistance to the bedside commode. VSS, HR is little tachy, pt c/on LLE but she says it is tolerable. Pt is covid 19 positive and has droplet precaution. Pt has Echo done this morning and it seems like her anterior apical cap is akinetic. Pt was put on Heparin drip. Heparin is continious and it is running 22.08 ml/hr and next PTT/INR would be 2100. Pt is doing well. LLE has dressing on so unable to see inside. Pt has Tele on and it is sinus tach. No other changes. Continue monitor.
[2022-01-08] MEDS: PREGABALIN 75 MG CAPSULE PO (19:29)
[2022-01-08] MEDS: TIMOLOL 0.5% OPHTH 1 DROPS EYE-BOTH (21:32)
[2022-01-08] MEDS: LATANOPROST 0.005% OPHTH 2.5 ML 1 DROPS EYE-BOTH (21:33)
[2022-01-08] MEDS: DIVALPROEX DR 250 MG TABLET PO (21:35)
[2022-01-08] MEDS: TIZANIDINE 4 MG TABLET 8 MG PO (21:35)
[2022-01-08] MEDS: TRAMADOL 50 MG TABLET PO (21:38)
[2022-01-08 22:12] LABS: PTT Partial Thromboplastin Tim 106 SECONDS (26.4-36.2)
[2022-01-09] VITALS (10 sets, daily range): BP systolic 98–138; BP diastolic 49–76; PULSE 61–73; RESP 16–18; TEMP 36–37.1; O2SAT 95–99
--- NOTE | 2022-01-09 01:00 | PC.NURSE ---
Pt on heparin drip, 2100 lab showed PTT at 106, turned off drip for 1 hour, then changed drip to 19/ hr down 3 mls / hour as per heparin protocol.
[2022-01-09] MEDS: PREGABALIN 75 MG CAPSULE PO ×3 (02:59→17:27)
[2022-01-09 03:38] LABS: Add Manual Diff / Slide Review NO; Basophils Absolute Auto 0 /uL (0-100); Basophils Percent Auto 0.5 % (0-2); Eosinophils Absolute Auto 100 /uL (0-450); Eosinophils Percent Auto 1.8 % (2-4); Hematocrit 31.6 % (36-46); Hemoglobin 10.6 g/dL (12.0-16.0); Lymphocytes Absolute Auto 1400 /uL (1100-4500); Lymphocytes Percent Auto 35.6 % (25-40); Mean Corpuscular HGB Conc 33.6 % (30-36); Mean Corpuscular Hemoglobin 27.8 PG (26-34); Mean Corpuscular Volume 82.8 fL (80-100); Monocytes Absolute Auto 500 /uL (0-900); Monocytes Percent Auto 12.6 % (3-14); Neutrophils Absolute Auto 1900 /uL (1500-7000); Neutrophils Percent Auto 49.5 % (50-75); Platelet Count 181 X10^3/uL (150-400); Red Blood Cell Count 3.82 X10^6/uL (4.0-5.2); Red Cell Distribution Width 14.2 % (11.6-14.8); White Blood Cell Count 3.9 X10^3/uL (4.5-11.0)
[2022-01-09 03:44] LABS: INR 1.3 (0.9-1.3); Prothrombin Time 14.9 SECONDS (10.1-12.7)
[2022-01-09 03:49] LABS: Alanine Aminotransferase 41 IU/L (<35); Albumin 3.1 g/dL (3.5-5.0); Alkaline Phosphatase 81 U/L (38-126); Aspartate Aminotransferase 126 IU/L (14-36); BUN Creatinine Ratio 21.7 (6-22); Bilirubin Total 0.7 mg/dL (0.2-1.3); Bilirubin Unconjugated 0.6 mg/dL (0.0-1.1); Blood Urea Nitrogen 23 mg/dL (7-17); Calcium 7.6 mg/dL (8.4-10.2); Carbon Dioxide 27 mmol/L (22-32); Chloride 101 mmol/L (98-107); Estimated Glomerular Filt Rate 58 mL/min (>60); Glucose 99 mg/dL (80-110); HEMOLYSIS < 15 (0-50); Magnesium 1.5 mg/dL (1.6-2.3); Potassium 3.8 mmol/L (3.4-5.1); Sodium 135 mmol/L (137-145); Total Protein 6.1 g/dL (6.3-8.2)
[2022-01-09 04:51] LABS: PTT Partial Thromboplastin Tim 83 SECONDS (26.4-36.2)
[2022-01-09] MEDS: ACETAMINOPHEN 325 MG TABLET 650 MG PO (08:27)
[2022-01-09] MEDS: TRAMADOL 50 MG TABLET PO (08:28)
[2022-01-09] MEDS: DIVALPROEX DR 250 MG TABLET PO ×2 (08:30→21:57)
[2022-01-09] MEDS: PARoxetine 20 MG TABLET 40 MG PO (08:30)
[2022-01-09] MEDS: ASPIRIN EC 81 MG TABLET PO (08:31)
[2022-01-09] MEDS: MAGNESIUM SULFATE 2 GM/50 ML PIGGYBACK IV (08:31)
[2022-01-09] MEDS: TIMOLOL 0.5% OPHTH 1 DROPS EYE-BOTH (08:32)
[2022-01-09] MEDS: METOPROLOL ER 25 MG TABLET PO ×2 (08:32→21:57)
[2022-01-09] MEDS: CLOPIDOGREL 75 MG TABLET PO (08:32)
--- NOTE | 2022-01-09 08:56 | PM.PN.1 ---
Subjective Subjective Date Patient Seen: 01/09/22 Time Patient Seen: 12:00 Interval history: Patient feeling well overall and denies chest pain. Continues to have watery diarrhea. Would like to take a shower. Exam Vital Signs (past 8 hours): - 01/09/22 03:08 01/09/22 04:00 01/09/22 06:00 Temperature 98.7 F Pulse Rate 67 72 Respiratory Rate 16 Blood Pressure 98/49 L 114/73 Pulse Oximetry 99 99 Oxygen Delivery Method Room Air Oxygen Flow Rate 0 01/09/22 08:00 Temperature 97.2 F L Pulse Rate 69 Respiratory Rate 17 Blood Pressure 114/66 Pulse Oximetry 99 Oxygen Delivery Method Oxygen Flow Rate 0 Oxygen Delivery Method Room Air Oxygen Flow Rate 0 Narrative Exam Narrative: Gen: Alert, oriented, well-developed 66 y.o. female, appears mildly uncomfortable HEENT: normocephalic, atraumatic, conjunctiva clear, sclera non-icteric, oral mucosa pink and moist Neck: supple, full ROM, no JVD, trachea is midline Resp: Lungs CTA, non-labored breathing CV: RRR, no murmur or rubs Abd: soft, non-tender, normoactive BTs Skin: no lesions or rashes, dry and intact Neuro: Alert and oriented X 4 w/no focal deficits. Speech clear and coherent. Extremities: Left leg in walking boot Psyche: normal mood and affect. Objective Labs Result Diagrams: 01/09/22 03:30 01/09/22 03:30 Labs: Laboratory Results - last 24 hr 01/08/22 01/08/22 01/08/22 08:58 14:12 14:12 WBC RBC Hgb Hct MCV MCH MCHC RDW Plt Count Neut % (Auto) Lymph % (Auto) [place] % (Auto) Eos % (Auto) Baso % (Auto) Neut # (Auto) Lymph # (Auto) [place] # (Auto) Eos # (Auto) Baso # (Auto) PT 12.8 H INR 1.1 APTT 30 Sodium Potassium Chloride Carbon Dioxide BUN Creatinine Estimated GFR BUN/Creatinine Ratio Glucose Calcium Magnesium Total Bilirubin Conjugated Bilirubin Unconjugated Bilirubin AST ALT Alkaline Phosphatase Troponin I 0.249 H* Total Protein Albumin Globulin Albumin/Globulin Ratio SARS-CoV-2 (PCR) 01/08/22 01/08/22 01/09/22 16:58 21:45 03:30 WBC 3.9 L RBC 3.82 L Hgb 10.6 L Hct 31.6 L MCV 82.8 MCH 27.8 MCHC 33.6 RDW 14.2 Plt Count 181 Neut % (Auto) 49.5 L Lymph % (Auto) 35.6 [place] % (Auto) 12.6 Eos % (Auto) 1.8 L Baso % (Auto) 0.5 Neut # (Auto) 1900 Lymph # (Auto) 1400 [place] # (Auto) 500 Eos # (Auto) 100 Baso # (Auto) 0 PT INR APTT 106 H* D Sodium Potassium Chloride Carbon Dioxide BUN Creatinine Estimated GFR BUN/Creatinine Ratio Glucose Calcium Magnesium Total Bilirubin Conjugated Bilirubin Unconjugated Bilirubin AST ALT Alkaline Phosphatase Troponin I Total Protein Albumin Globulin Albumin/Globulin Ratio SARS-CoV-2 (PCR) Positive H 01/09/22 01/09/22 01/09/22 03:30 03:30 03:30 WBC RBC Hgb Hct MCV MCH MCHC RDW Plt Count Neut % (Auto) Lymph % (Auto) [place] % (Auto) Eos % (Auto) Baso % (Auto) Neut # (Auto) Lymph # (Auto) [place] # (Auto) Eos # (Auto) Baso # (Auto) PT 14.9 H INR 1.3 APTT 83 H* D Sodium 135 L Potassium 3.8 Chloride 101 Carbon Dioxide 27 BUN 23 H Creatinine 1.06 H Estimated GFR 58 L BUN/Creatinine Ratio 21.7 Glucose 99 Calcium 7.6 L Magnesium 1.5 L Total Bilirubin 0.7 Conjugated Bilirubin 0.0 Unconjugated Bilirubin 0.6 AST 126 H ALT 41 H Alkaline Phosphatase 81 Troponin I Total Protein 6.1 L Albumin 3.1 L Globulin 3.0 Albumin/Globulin Ratio 1.0 SARS-CoV-2 (PCR) [facility] Medical History Arthritis Easy bruisability Glaucoma Surgical History History of bilateral cataract extraction History of eye surgery History of spinal fusion (01/2014) History of trabeculectomy Hx of cervical spine surgery (03/2001) Hx of tubal ligation Family History Mother Infection, dialysis vascular access Social History household members: none Smoking Status: Former smoker alcohol intake: current Assessment & Plan Assessment & Plan narrative: Lyudmila Magallanes is admitted for pain control associated with a recent left ankle fracture and status post ankle fracture reduction done in the emergency department and for further evaluation of elevated troponins and ST inversion seen on EKG suspected of possibly being myocarditis in the setting of COVID-19. NSTEMI, acute present on admission -initial troponin 0.334, now down trending to 0.249 -ECG with T-wave inversions in V4 through V6 -echocardiogram shows newly reduced EF of 40-45% (previously 57% on December 14, 2021) and new wall motion abnormalities including severe hypokinesis to akinesis of distal anterolateral wall, distal inferolateral wall and entire apical cap -cardiology at [facility] contacted who recommended transfer for PCI -continue heparin drip -continue aspirin and Plavix Attempt transfer when bed available to [facility] COVID-19 positive, acute present on admission -patient notes COVID like symptoms starting January 02 but currently only has a lingering cough -airborne precautions -not requiring supplemental oxygen Left ankle fracture, acute present on admission -orthopedics consulted who placed a splint and recommends surgical intervention once NSTEMI is dealt with hopefully at [facility], if not within a few weeks as outpatient -strict nonweightbearing status of the left leg -elevate left leg -pain control Watery diarrhea, acute present on admission -patient notes loose stools which became more watery with 5 occurrences in the last couple of days -check C diff VTE Prophylaxis: Wells risk score 0 X Enoxaparin 40 mg subQ once daily right leg SCD Consultants? Dr. Scruggs, Orthopedic surgery, care and involvement in the patient?s care is appreciated. Dispo: probable discharge to home Code status: Full code as discussed with the patient who identifies her daughter as her surrogate and POA. [X] I have utilized all available immediate resources to obtain, update, or review of the patient's current medications COVID-19 COVID-19 status: Positive Result date/Date tested (Pos, Neg/Pending): 01/07/22 Time Spent With Patient Critical Care time: I spent a total of [] minutes of critical care time on this patient's care today; this time is exclusive of procedural time. Quality VTE Deep Vein Thrombosis/Pulmonary Embolism Present on Admission: No
--- NOTE | 2022-01-09 12:55 | P.PN_ITS ---
Subjective Subjective Interval history: Patient is resting comfortably in bed with her foot elevated but is coughing. She denies any chest pain. Exam Vital Signs (past 8 hours): - 01/09/22 06:00 01/09/22 08:00 Temperature 97.2 F L Pulse Rate 69 Respiratory Rate 17 Blood Pressure 114/66 Pulse Oximetry 99 99 Oxygen Delivery Method Room Air Oxygen Flow Rate 0 Oxygen Delivery Method Room Air Oxygen Flow Rate 0 Narrative Exam Narrative: Splint is intact she has able to fire her toe flexors and extensors and has capillary refill there is mild swelling Objective Labs Result Diagrams: 01/09/22 03:30 01/09/22 03:30 Labs: Laboratory Results - last 24 hr 01/08/22 01/08/22 01/08/22 14:12 14:12 16:58 WBC RBC Hgb Hct MCV MCH MCHC RDW Plt Count Neut % (Auto) Lymph % (Auto) [place] % (Auto) Eos % (Auto) Baso % (Auto) Neut # (Auto) Lymph # (Auto) [place] # (Auto) Eos # (Auto) Baso # (Auto) PT 12.8 H INR 1.1 APTT 30 Sodium Potassium Chloride Carbon Dioxide BUN Creatinine Estimated GFR BUN/Creatinine Ratio Glucose Calcium Magnesium Total Bilirubin Conjugated Bilirubin Unconjugated Bilirubin AST ALT Alkaline Phosphatase Total Protein Albumin Globulin Albumin/Globulin Ratio SARS-CoV-2 (PCR) Positive H 01/08/22 01/09/22 01/09/22 21:45 03:30 03:30 WBC 3.9 L RBC 3.82 L Hgb 10.6 L Hct 31.6 L MCV 82.8 MCH 27.8 MCHC 33.6 RDW 14.2 Plt Count 181 Neut % (Auto) 49.5 L Lymph % (Auto) 35.6 [place] % (Auto) 12.6 Eos % (Auto) 1.8 L Baso % (Auto) 0.5 Neut # (Auto) 1900 Lymph # (Auto) 1400 [place] # (Auto) 500 Eos # (Auto) 100 Baso # (Auto) 0 PT INR APTT 106 H* D Sodium 135 L Potassium 3.8 Chloride 101 Carbon Dioxide 27 BUN 23 H Creatinine 1.06 H Estimated GFR 58 L BUN/Creatinine Ratio 21.7 Glucose 99 Calcium 7.6 L Magnesium 1.5 L Total Bilirubin 0.7 Conjugated Bilirubin 0.0 Unconjugated Bilirubin 0.6 AST 126 H ALT 41 H Alkaline Phosphatase 81 Total Protein 6.1 L Albumin 3.1 L Globulin 3.0 Albumin/Globulin Ratio 1.0 SARS-CoV-2 (PCR) 01/09/22 01/09/22 03:30 03:30 WBC RBC Hgb Hct MCV MCH MCHC RDW Plt Count Neut % (Auto) Lymph % (Auto) [place] % (Auto) Eos % (Auto) Baso % (Auto) Neut # (Auto) Lymph # (Auto) [place] # (Auto) Eos # (Auto) Baso # (Auto) PT 14.9 H INR 1.3 APTT 83 H* D Sodium Potassium Chloride Carbon Dioxide BUN Creatinine Estimated GFR BUN/Creatinine Ratio Glucose Calcium Magnesium Total Bilirubin Conjugated Bilirubin Unconjugated Bilirubin AST ALT Alkaline Phosphatase Total Protein Albumin Globulin Albumin/Globulin Ratio SARS-CoV-2 (PCR) [facility] Medical History Arthritis Easy bruisability Glaucoma Surgical History History of bilateral cataract extraction History of eye surgery History of spinal fusion (01/2014) History of trabeculectomy Hx of cervical spine surgery (03/2001) Hx of tubal ligation Family History Mother Infection, dialysis vascular access Social History household members: none Smoking Status: Former smoker alcohol intake: current Assessment & Plan Assessment and plan (1) Closed dislocation of ankle: Status: Acute (2) COVID-19 virus infection: Status: Acute (3) Non-ST elevation TX (NSTEMI): Status: Acute Plan I told the patient that she needs fairly urgent repair of her left ankle. She is clearly medically unstable. She has evidence of an TX and they are working on some sending her to an outside facility with Cardiac Services. She is also COVID positive. Spoke to the anesthesiologist. They need cardiac evaluation prior to considering her for anesthesia. I believe her telephone station repairer is at [facility]. I think it is reasonable for her to proceed with surg ical repair of her left ankle at [facility] as she will have additional support of her telephone station repairer. I instructed her to be strict nonweightbearing on the ankle. She needs to elevate her ankle as much as possible. She might be a candidate for repair of her ankle within the next few weeks. I did ask Dr. Sutherland if she might be able to see her in the future if she recovers from her COVID and gets cardiac clearance. Time Spent With Patient Critical Care time: I spent a total of [] minutes of critical care time on this patient's care today; this time is exclusive of procedural time. Quality VTE Deep Vein Thrombosis/Pulmonary Embolism Present on Admission: No
--- NOTE | 2022-01-09 14:13 | CM.DPNOTE ---
Discharge Planning Note: Pending transfer to [facility] for cardiology workup and stent prior to her surgical ankle repair. Patient pleasant, sitting up in chair. P: Continue to follow. Gaby Butcher RN/DCP
[2022-01-09 16:03] LABS: Clostridium Difficile Tox PCR Negative for C. diff (Negative)
[2022-01-09] MEDS: HYDROMORPHONE 0.5 MG INJ IV ×2 (17:27→21:56)
[2022-01-09] MEDS: HEPARIN DRIP 25,000 UNIT/500 ML IV.SOLN 22.08 UNIT IV (17:29)
[2022-01-09] MEDS: LATANOPROST 0.005% OPHTH 2.5 ML 1 DROPS EYE-BOTH (21:52)
[2022-01-09] MEDS: LOPERAMIDE 2 MG CAPSULE 4 MG PO (21:53)
[2022-01-09] MEDS: DOCUSATE 100 MG CAPSULE PO (21:53)
[2022-01-09] MEDS: ACETAMINOPHEN 325 MG TABLET PO (21:56)
[2022-01-09] MEDS: TIZANIDINE 4 MG TABLET 8 MG PO (21:57)
[2022-01-10] VITALS (7 sets, daily range): BP systolic 91–125; BP diastolic 46–72; PULSE 50–99; RESP 16–18; TEMP 35.7–36.6; O2SAT 97–99
[2022-01-10] MEDS: HYDROMORPHONE 0.5 MG INJ IV ×2 (05:09→10:04)
[2022-01-10] MEDS: PREGABALIN 75 MG CAPSULE PO ×2 (05:09→10:01)
[2022-01-10] MEDS: LOPERAMIDE 2 MG CAPSULE 4 MG PO ×2 (05:14→10:18)
[2022-01-10 06:50] LABS: Add Manual Diff / Slide Review NO; Basophils Absolute Auto 0 /uL (0-100); Basophils Percent Auto 0.4 % (0-2); Eosinophils Absolute Auto 100 /uL (0-450); Eosinophils Percent Auto 1.8 % (2-4); Hematocrit 30.4 % (36-46); Hemoglobin 10.2 g/dL (12.0-16.0); Lymphocytes Absolute Auto 1600 /uL (1100-4500); Lymphocytes Percent Auto 34.5 % (25-40); Mean Corpuscular HGB Conc 33.6 % (30-36); Mean Corpuscular Hemoglobin 28.1 PG (26-34); Mean Corpuscular Volume 83.7 fL (80-100); Monocytes Absolute Auto 600 /uL (0-900); Monocytes Percent Auto 12.7 % (3-14); Neutrophils Absolute Auto 2400 /uL (1500-7000); Neutrophils Percent Auto 50.6 % (50-75); Platelet Count 166 X10^3/uL (150-400); Red Blood Cell Count 3.63 X10^6/uL (4.0-5.2); Red Cell Distribution Width 13.9 % (11.6-14.8); White Blood Cell Count 4.8 X10^3/uL (4.5-11.0)
[2022-01-10 07:04] LABS: Alanine Aminotransferase 32 IU/L (<35); Albumin 2.9 g/dL (3.5-5.0); Alkaline Phosphatase 81 U/L (38-126); Aspartate Aminotransferase 93 IU/L (14-36); BUN Creatinine Ratio 19.3 (6-22); Bilirubin Total 0.5 mg/dL (0.2-1.3); Bilirubin Unconjugated 0.4 mg/dL (0.0-1.1); Blood Urea Nitrogen 21 mg/dL (7-17); Calcium 7.9 mg/dL (8.4-10.2); Carbon Dioxide 30 mmol/L (22-32); Chloride 102 mmol/L (98-107); Estimated Glomerular Filt Rate 56 mL/min (>60); Globulin 2.8 g/dL (1.7-4.1); Glucose 98 mg/dL (80-110); HEMOLYSIS < 15 (0-50); Magnesium 1.9 mg/dL (1.6-2.3); Potassium 3.5 mmol/L (3.4-5.1); Sodium 135 mmol/L (137-145); Total Protein 5.7 g/dL (6.3-8.2)
[2022-01-10] MEDS: ASPIRIN EC 81 MG TABLET PO (10:00)
[2022-01-10] MEDS: DIVALPROEX DR 250 MG TABLET PO (10:00)
[2022-01-10] MEDS: DOCUSATE 100 MG CAPSULE PO (10:00)
[2022-01-10] MEDS: PARoxetine 20 MG TABLET 40 MG PO (10:01)
[2022-01-10] MEDS: METOPROLOL ER 25 MG TABLET PO (10:01)
[2022-01-10] MEDS: CLOPIDOGREL 75 MG TABLET PO (10:01)
[2022-01-10] MEDS: TIMOLOL 0.5% OPHTH 1 DROPS EYE-BOTH (10:27)
--- NOTE | 2022-01-10 10:46 | PM.DS.1 ---
History of Present Illness History of Present Illness Date Patient Seen: 01/10/22 Chief complaint: Lt. ankle with deformity Narrative: Lyudmila Magallanes is a 66 y.o. female with no reported chronic conditions except for right foot drop s/p lumbar spine surgery in 2020, was in her usual state of health when she fell at home. She was wearing compression stockings due to lower leg swelling, slipped and fractured her left ankle. She was ecently in [place], where she contracted COVID, with multiple family members testing positive and with varying symptomology.? She is unvaccinated, and does not plan to. Said none of her family members had significant symptoms. Productive cough early in the course, now gone. Is very thirsty and has had mild diarrhea since venecia COVID.? Denies sore throat, difficulty swallowing, shortness of breath, chest pain, nausea vomiting, abdominal pain, dysuria, or constipation.? Her main complaint is the pain in her left ankle. In the emergency department surgery was consulted and recommended manual reduction of her ankle fracture.? Dr. Navarro and Dr. Mota reduced her ankle fracture and she was recommended for follow-up with Dr. Scruggs orthopedic surgery for follow-up.? She was requested for admission due to an elevated troponin an inverted T-wave changes on EKG in leads V4-6.? They consulted Cardiology and wanted to have her troponins trended overnight, and have an echocardiogram to rule out myocarditis secondary to COVID-19.? Her initial troponin was 0.334 and her 2nd troponin started to trend down even though it is still elevated at 0.307. Chest x-ray done in the ED was read as normal.? She had a pre and post reduction x-ray of her left ankle and a CT of her left ankle.? It noted left ankle fracture and dislocation with extensive soft tissue swelling and tibiotalar joint effusion.? She is afebrile, blood pressure 143/85, heart rate 83, respiratory rate 16, oxygen saturation of 98% on room air she weighs 90.7 kg with a BMI of 28.7.? She is mildly anemic with hemoglobin of 11.3 and hematocrit of 34.1.? She does have a creatinine bump of 1.87 with a EGFR of 29 in the setting of chronic kidney disease, calcium is 8.2, AST is 191, ALT 54, total CK was 6339 CK-MB is 17.3, troponins were 0.334 and 0.307 on repeat, COVID-19 PCR is positive Discharge Providers Provider Date of admission: 01/07/22 21:59 Discharge Date: 01/10/22 Primary care physician: Doctor Cailin MD Consults: 01/07/22 20:10 Consult to Orthopedic Surgery Stat Comment: Consulting Provider: Ashley Scruggs Reason for consultation: ankle fracture/dislocation Has provider been notified: Yes 01/07/22 23:19 Consult to [facility] [place] Protective Clothing Issuer Routine Comment: req. assistance at home after d/c from hospital. 01/08/22 01:31 Consult After Hours PICC Line RN Stat Comment: Mid or PICC line okay 01/08/22 02:29 Consult to Physician Routine Comment: Consulting Provider: Ashley Scruggs Reason for consultation: left ankle fracture Has provider been notified: Yes 01/08/22 15:02 Consult to Home Health Routine Comment: Reason For Exam: Home Health RN, P.T, O.T, bath aide Discharge provider: Prachi Minaya MD Summary Hospital Course Discharge Diagnosis: 1. NSTEMI 2. Covid-19 Positive, present on admission 3. HANS, present on admission, present on admission 4. Left ankle fracture 5. diarrhea Hospital Course: Patient was admitted to the hospital following a fall. She suffered a left ankle fracture. Patient was noted to be Covid-19 positive. She also had elevated troponin's and abnormal EKG revealing deep symetric twave inversions in leads V3-V6. She had no chest pain. Echo revealed : echocardiogram shows newly reduced EF of 40-45% (previously 57% on December 14, 2021) and new wall motion abnormalities including severe hypokinesis to akinesis of distal anterolateral wall, distal inferolateral wall and entire apical cap Patient was treated medically with IV heparin, Asa, Plavix, B-kedar. She had no chest pain, was deemed clinically improved. Cardiology consult with Dr. Hahn and Dr. Vernon agreed that expedited outpatient work up is warranted. Patient will have a repeat Covid -19 test today. She will follow up with Dr. Hahn via video visit next week. He will arrange outpatient Cardiac Cath testing. She is to remain non weightbearing on the left. She will be discharged home with Home Health. Patient has no complaints and is deemed appropriate for d/c home. Status at Discharge Cognitive/behavioral status at discharge: oriented Functional status at discharge: bed bound Overall status at discharge: patient is progressing back to baseline Exam Vital Signs (past 8 hours): - 01/10/22 04:00 01/10/22 06:00 01/10/22 08:00 Temperature 97.7 F 96.2 F L Pulse Rate 66 50 L Respiratory Rate 17 17 Blood Pressure 96/58 L 96/50 L Pulse Oximetry 97 97 97 Oxygen Delivery Method Room Air Oxygen Flow Rate 0 0 Oxygen Delivery Method Room Air Oxygen Flow Rate 0 Narrative Exam Narrative: pleasant female in no acute distess Resp Other: Lungs: clear to auscultation Cardio Other: CV: RRR nl Sl S2 GI Other: abd: soft/ non tender/ non distended Extrem Other: Left ankle in dressing Objective Labs Result Diagrams: 01/10/22 06:35 01/10/22 06:35 Labs: Laboratory Results - last 24 hr 01/09/22 01/10/22 01/10/22 09:14 06:35 06:35 WBC 4.8 RBC 3.63 L Hgb 10.2 L Hct 30.4 L MCV 83.7 MCH 28.1 MCHC 33.6 RDW 13.9 Plt Count 166 Neut % (Auto) 50.6 Lymph % (Auto) 34.5 [place] % (Auto) 12.7 Eos % (Auto) 1.8 L Baso % (Auto) 0.4 Neut # (Auto) 2400 Lymph # (Auto) 1600 [place] # (Auto) 600 Eos # (Auto) 100 Baso # (Auto) 0 Sodium 135 L Potassium 3.5 Chloride 102 Carbon Dioxide 30 BUN 21 H Creatinine 1.09 H Estimated GFR 56 L BUN/Creatinine Ratio 19.3 Glucose 98 Calcium 7.9 L Magnesium 1.9 Total Bilirubin 0.5 Conjugated Bilirubin 0.0 Unconjugated Bilirubin 0.4 AST 93 H ALT 32 Alkaline Phosphatase 81 Total Protein 5.7 L Albumin 2.9 L Globulin 2.8 Albumin/Globulin Ratio 1.0 C. difficile Tox (PCR) Negative for c. diff [facility] Medical History Arthritis Easy bruisability Glaucoma Surgical History History of bilateral cataract extraction History of eye surgery History of spinal fusion (01/2014) History of trabeculectomy Hx of cervical spine surgery (03/2001) Hx of tubal ligation Family History Mother Infection, dialysis vascular access Social History household members: none Smoking Status: Former smoker alcohol intake: current Discharge Assessment & Plan Assessment and Plan Assessment: 1.NSTEMI 2. Covid-19 Positive, present on admission 3. HANS, present on admission, present on admission 4. Left ankle fracture 5. diarrhea Plan of Treatment: discharge home with home health F/u with Cardiology via video visit next week for urgent cardiac catherization Discharge Plan Discharge Plan Patient Disposition: Home Health Service Transfer to: [facility] Discharge orders & Medications Prescriptions: New aspirin 81 mg Tablet,Delayed Release (Dr/Ec) 81 mg PO DAILY 30 Days Qty: 30 0RF hydrocodone-acetaminophen 5-325 mg Tablet 1 tab PO Q4HR PRN (Reason: Pain, Moderate (4-6)) Qty: 20 0RF clopidogrel 75 mg Tablet 75 mg PO DAILY Qty: 30 0RF metoprolol succinate 25 mg Tablet Extended Release 24 Hr 25 mg PO BID Qty: 60 0RF Continued latanoprost 0.005 % drops 1 drp EYE-BOTH BEDTIME Label Comments: Instill 1 drop into both eyes every night sumatriptan succinate 100 mg tablet 100 mg PO PRN PRN (Reason: Migraine Headache) Label Comments: TK 1 T PO PRF MIGRAINE. MAY REPEAT 1 T MORE IN 2 H IF NEEDED. MDD 2 divalproex 125 mg tablet,delayed release (DR/EC) 250 mg PO BID paroxetine HCl 40 mg tablet 40 mg PO DAILY Label Comments: TAKE 1 TABLET BY MOUTH DAILY eszopiclone 3 mg tablet 3 mg PO BEDTIME PRN (Reason: Sleep) timolol maleate 0.5 % drops, once daily 1 drp EYE-BOTH BID Label Comments: INSTILL 1 DROP IN BOTH EYES TWICE DAILY pregabalin 75 mg capsule 75 mg PO Q8H Myrbetriq 50 mg tablet extended release 24 hr 50 mg PO DAILY Label Comments: Take 1 tablet by mouth once a day solifenacin 10 mg tablet 10 mg PO QAM Simbrinza 1-0.2 % drops,suspension 1 drp EYE-BOTH TID tizanidine 4 mg Tablet 8 mg PO BEDTIME Qty: 30 0RF Follow up/Referrals: Doctor Simeon MD [Primary Care Provider] - Magaly Hahn MD [Physician] - (s/p NSTEMI, needs PCI) Ashley Scruggs MD [Physician] - (s/p ankle fracture) Diet/Activity/Treatments Diet: Low-sodium and Low-cholesterol Activity: non weight bearing on the left extremity Discharge Data Primary Care Provider: Doctor Cailin Quality VTE Deep Vein Thrombosis/Pulmonary Embolism Present on Admission: No
--- NOTE | 2022-01-10 11:40 | PT.IIE ---
Current Diagnoses Non-ST elevation (NSTEMI) myocardial infarction (01/07/22) Dislocation of unspecified ankle joint, initial encounter (01/07/22) COVID-19 (01/07/22) Surgical History (Last Reviewed 01/09/22 @ 08:57 by Chin Hinojosa DO) History of bilateral cataract extraction History of eye surgery History of spinal fusion (01/2014) History of trabeculectomy Hx of cervical spine surgery (03/2001) Hx of tubal ligation Medical History (Last Reviewed 01/09/22 @ 08:57 by Chin Hinojosa DO) Arthritis Easy bruisability Glaucoma Physical Therapy Inpatient Evaluation/Re-Eval M1 PT/OT-IP Prior Functional Status Start: 01/10/22 12:52 Freq: NEEDED Status: Active Protocol: Document 01/10/22 11:40 AB (Rec: 01/10/22 13:06 AB [email or web address]) Medical Review Prior Functional Status Medical History Reviewed Yes Communication able to make needs known Mobility and Gait pt stated that she is modified independent with all mobilities and ambulation without AD indoors but uses a SPC for outdoor mobility due to chronic BLE neuropathy with decrease sensation Social History Household Members none Living Arrangements Apartment/Condo Number of Floors (Floors) One Floor Number of Stairs To Enter/Railing? no steps to enter Home Environment Standard Height Toilet,Walk in Shower,Tub/Shower,Built-In Shower Seat Home Equipment Front Wheel Walker,Straight Cane,Raised Toilet Seat w/ Armrests,Hand Held Shower,Grab Bars In Shower Additional Social History Comment pt stated that her daughter will assist her and also [facility] M2 PT-IP Current Condition Start: 01/10/22 12:52 Freq: NEEDED Status: Active Protocol: Document 01/10/22 11:40 AB (Rec: 01/10/22 13:06 AB [email or web address]) Physical Therapy Current Condition Current Condition Evaluation Date 01/10/22 Treatment Diagnosis Covid +; L ankle fx s/p fall; NSTEMI; difficulty in walking Onset Date 01/07/22 M3 PT-IP Subjective Start: 01/10/22 12:52 Freq: NEEDED Status: Active Protocol: Document 01/10/22 11:40 AB (Rec: 01/10/22 13:06 AB [email or web address]) Subjective Physical Therapy Visit Type Type Initial Evaluation Visit Start Time 11:40 Visit Stop Time 12:45 Total Visit Minutes 65 Number of RIBBER Visits 0 Physical Therapy Visit Comments Patient Comments agreeable to do PT Therapy Pain Assessment Pain When Pain Assessed At Rest Pain Present Pain Present Pain Reported Location left ankle Intensity 3 Scale Used Numeric (0 - 10) Pain Management Techniques Distraction,Elevation, Modification of Treatment,Re- positioning,Timing of Activity with Medications M4 PT-IP Mobility and Gait Start: 01/10/22 12:52 Freq: NEEDED Status: Active Protocol: Document 01/10/22 11:40 AB (Rec: 01/10/22 13:06 [email or web address]) PT-Bed Mobility Assessment Supine to Sit Supine to Sit Standby Assistance PT-Transfer Assessment Sit to and From Stand Sit to and from Stand Minimal Assistance,1 Person Assistance,Use of Upper Extremities Equipment Transfer Assistive Device Gait Belt,Front Wheeled Walker Orthotic/Prosthetic Devices or Brace: No Transfers Transfer Destination Bed,Chair Transfer Technique Stand Step Pivot Transfer Ability Level of Assist Minimal Assistance,1 Person Assistance,Use of Upper Extremities Comments Mobility Comments educated pt on NWB on LLE. completed supine to sit SBA. able to sit on EOB SBA. completed sit to stand x 3 attempts min A and cues. tends to put weight on LLE. completed step transfer using FWW min A and cues. Transfer training bed<>w/c x 4 reps and pt requires min A and max cues. pt with difficulty with sit to stand and easily gets anxious. pt agreed to sit up on chair for lunch. set up for lunch. call light and table placed within reach. Caregiver training this afternoon with daughter. Pt texted daughter to come in for training at ~ 145 pm. PT-Balance Assessment Sitting Balance and Reactions Static Sitting Balance Ability Normal Dynamic Sitting Balance Ability Good Standing Balance and Reactions Static Standing Balance Ability Fair Dynamic Standing Balance Ability Poor Device Used FWW M5 PT-IP Objective Assessments Start: 01/10/22 12:52 Freq: NEEDED Status: Active Protocol: Document 01/10/22 11:40 AB (Rec: 01/10/22 13:06 [email or web address]) Orientation Orientation/Cognition Level of Alertness Alert Orientation Name,Place,Situation Language Function Ability No Deficits Noted Safety Awareness Decreased Safety Awareness Memory Description No Deficits Noted Gross Range of Motion Lower Extremity ROM Impairments L ankle on soft case NT Strength Lower Extremity Strength Ankle L ankle on soft cast NT Sensation Assessment Sensation Gross Sensation Right LE Impaired,Left LE Impaired Light Touch Impaired Proprioception (Position) Impaired Sensation Description Numbness Comments Sensation Comments chronic BLE neuropathy Muscle Tone Muscle Tone WNL Yes M6 PT-IP Treatment Start: 01/10/22 12:52 Freq: NEEDED Status: Active Protocol: Document 01/10/22 11:40 AB (Rec: 01/10/22 13:06 AB [email or web address]) Physical Therapy Treatment Education Education Provided Weight Bearing Status,Safety M7 PT-IP Assessment and Plan Start: 01/10/22 12:52 Freq: NEEDED Status: Active Protocol: Document 01/10/22 11:40 AB (Rec: 01/10/22 13:06 AB [email or web address]) PT Summary Assessment and Plan Potential Rehabilitation Potential Fair Status of Condition at Evaluation Evolving Summary Impairments Pain,ROM,Strength,Balance, Coordination,Sensation,Tone, Cognition,Bed Mobility, Transfers,Gait,Activity Tolerance Assessment Summary Pt requiring min A and max cues with transfers using FWW. Pt is currently NWB on LLE and needs max cues for safety. caregiver training set up this afternoon and if daughter will be able to assist pt safely, pt plans to go home. will continue to assess progress. pt will need homehealth services. Goals Bed Mobility Goal Independent Transfer Goal Independent Gait Goal Contact Guard Assistance,Front Wheel Walker Gait Distance 50 Days to Meet Goals 10 Frequency of Treatment Frequency Of Treatment Twice a Day Treatment Plan Physical Therapy Treatment Plan Bed Mobility Training,Transfer Training,Gait Training, Therapeutic Exercise,Balance Retraining,Discharge Planning, Hot or Cold Pack,Neuromuscular Re-ed,Coordination Retraining Weight Bearing Status Weight Bearing Status Non-Weight Bearing Allowed Weight Bearing Amount (enter % LLE NWB or #) (%) Recommendations To Nursing Amount of Assist Needed 1 Person Assist Discharge Recommendations PT Discharge Recommendations Home with Assistance,Home with 21/01 Assist Available,Home Health Equipment Needed for Home Before w/c Discharge Transportation Needs at Discharge Private Vehicle,Wheelchair/ Cabulance
[2022-01-10 13:41] LABS: COVID19 -Nasal RAPID POSITIVE (Negative)
--- NOTE | 2022-01-10 13:45 | CM.DPNOTE ---
Discharge Planning Note: Patient to discharge today with [facility]: RN, PT/OT, Bath Aide; they can start next Monday 01/15 or sooner if cancellations. Discussed with patient her equipment needs which family member will diamond picker and take to her home, or will be delivered by [employer]. Family member will stay with her through the weekend and she will see cardiology next week she states. Therapies worked with patient today. P: Discharge. Gaby Butcher RN/DCP
--- NOTE | 2022-01-10 14:50 | PT.IPTN ---
Current Diagnoses Non-ST elevation (NSTEMI) myocardial infarction (01/07/22) Dislocation of unspecified ankle joint, initial encounter (01/07/22) COVID-19 (01/07/22) Physical Therapy Treatment Note M2 PT-IP Current Condition Start: 01/10/22 12:52 Freq: NEEDED Status: Active Protocol: Document 01/10/22 11:40 AB (Rec: 01/10/22 13:06 AB [email or web address]) Physical Therapy Current Condition Current Condition Evaluation Date 01/10/22 Treatment Diagnosis Covid +; L ankle fx s/p fall; NSTEMI; difficulty in walking Onset Date 01/07/22 M3 PT-IP Subjective Start: 01/10/22 12:52 Freq: NEEDED Status: Active Protocol: Document 01/10/22 14:50 AB (Rec: 01/10/22 16:03 AB [email or web address]) Subjective Physical Therapy Visit Type Type Treatment Note Visit Start Time 14:50 Visit Stop Time 15:40 Total Visit Minutes 50 Number of B[employer] Visits 0 Physical Therapy Visit Comments Patient Comments agreeable to do PT Therapy Pain Assessment Pain When Pain Assessed At Rest Pain Present Pain Present Pain Reported Location left ankle Scale Used pain scale not stated M4 PT-IP Mobility and Gait Start: 01/10/22 12:52 Freq: NEEDED Status: Active Protocol: Document 01/10/22 14:50 AB (Rec: 01/10/22 16:03 AB [email or web address]) PT-Bed Mobility Assessment Sit to Supine Sit to Supine Minimal Assistance,1 Person Assistance PT-Transfer Assessment Sit to and From Stand Sit to and from Stand Minimal Assistance,Moderate Assistance,1 Person Assistance ,Use of Upper Extremities Equipment Transfer Assistive Device Gait Belt,Front Wheeled Walker Orthotic/Prosthetic Devices or Brace: Yes Transfers Transfer Destination Bed,Chair Transfer Technique Stand Step Pivot Transfer Ability Level of Assist Minimal Assistance,1 Person Assistance,Use of Upper Extremities Comments Mobility Comments caregiver training conducted. educated daughter on how to use safety belt and how to assist pt. also informed regarding pt's NWB on LLE and techniques for sit to stand and use of FWW for transfers. completed sit to stand from the chair min A to mod A and max cues and step transfer using fWW to EOB min A with daughter assisting. attempted sit to stand from EOB x 4 attempts and pt initially unable to safely complete. educated pt and daughter regarding techniques again. completed sit to stand with PT assisting and cues and pt completed min to mod A. Daughter counter demonstrated and assist pt and completed mod A and step transfer to chair using fWW min A. completed chair to bed transfer again using FWW with daughter assisting pt and completed safely. pt completed sit to supine and daughter assisted LLE elevation to bed. positioned pt in bed. call light and table placed within reach. daughter and pt without further concerns. informed nurse regarding pt's mobility and requesting for pain meds. pt also confirmed that she ordered a w/c, shower chair from [employer] and they will deliver to her house today. M5 PT-IP Objective Assessments Start: 01/10/22 12:52 Freq: NEEDED Status: Active Protocol: Document 01/10/22 11:40 AB (Rec: 01/10/22 13:06 AB [email or web address]) Orientation Orientation/Cognition Level of Alertness Alert Orientation Name,Place,Situation Language Function Ability No Deficits Noted Safety Awareness Decreased Safety Awareness Memory Description No Deficits Noted Gross Range of Motion Lower Extremity ROM Impairments L ankle on soft case NT Strength Lower Extremity Strength Ankle L ankle on soft cast NT Sensation Assessment Sensation Gross Sensation Right LE Impaired,Left LE Impaired Light Touch Impaired Proprioception (Position) Impaired Sensation Description Numbness Comments Sensation Comments chronic BLE neuropathy Muscle Tone Muscle Tone WNL Yes M6 PT-IP Treatment Start: 01/10/22 12:52 Freq: NEEDED Status: Active Protocol: Document 01/10/22 14:50 AB (Rec: 01/10/22 16:[email or web address] Physical Therapy Treatment Education Education Provided Weight Bearing Status,Safety M7 PT-IP Assessment and Plan Start: 01/10/22 12:52 Freq: NEEDED Status: Active Protocol: Document 01/10/22 14:50 AB (Rec: 01/10/22 16:03 [email or web address] PT Summary Assessment and Plan Potential Rehabilitation Potential Fair Summary Impairments Pain,ROM,Strength,Balance, Coordination,Sensation,Tone, Cognition,Bed Mobility, Transfers,Gait,Activity Tolerance Progress Towards Goals Slow Progress due to Medical Issues,Slow Progress due to Activity Tolerance Assessment Summary caregiver training conducted and daughter able to assist pt . Recommending pt using a w/c for mobility and fWW for transfers. pt will require 24 /7 assistance at home and daughter agreed to provide. pt will need HHPT and homehealth care aides to assist. Goals Bed Mobility Goal Independent Transfer Goal Independent Gait Goal Contact Guard Assistance,Front Wheel Walker Gait Distance 50 Days to Meet Goals 10 Frequency of Treatment Frequency Of Treatment Twice a Day Treatment Plan Physical Therapy Treatment Plan Bed Mobility Training,Transfer Training,Gait Training, Therapeutic Exercise,Balance Retraining,Discharge Planning, Hot or Cold Pack,Neuromuscular Re-ed,Coordination Retraining Weight Bearing Status Weight Bearing Status Non-Weight Bearing Allowed Weight Bearing Amount (enter % LLE NWB or #) (%) Recommendations To Nursing Amount of Assist Needed 1 Person Assist Discharge Recommendations PT Discharge Recommendations Home with Assistance,Home with / Assist Available,Home Health Equipment Needed for Home Before w/c Discharge Transportation Needs at Discharge Private Vehicle,Wheelchair/ Cabulance
[2022-01-10] MEDS: HYDROCODONE/ACET 5/325 TABLET 1 TAB PO (16:16)
--- NOTE | 2022-01-10 18:39 | PC.NURSE ---
Discharge: Pt wants to d/c to home. gave d/c instructions. Vicodin given for pain has been effective. Pt has no sxs from covid, lungs are clear and sats are 99% on RA. No c/p. Tele has been sr. Pt has follow up scheduled for cardiology. Pt has lt lower leg ankle fx. Has been transfering with assist of 1, walker and gait belt. PT worked with pt. Patient and dtr know where to get supplies. Dtr did ocular care technician training with pt. Reviewed d/c packet with pt and dtr. Questions answered. Rx given. Pt d/c to home via auto with dtr.
== END 2022-01-10 16:45 | disposition home health service (06) | DRG 280 ==
LOC: ED 21:58 → AC 21:59
PROVIDERS: Emergency Medicine; Internal Medicine; Nurse Practitioner Family; Student in an Organized Health Care Education/Training Program; Admitting Provider Nurse Practitioner Family; Emergency Provider Emergency Medicine; Referring Provider Emergency Medicine; Visit Provider Nurse Practitioner Family
DX: I21.4 Non-ST elevation (NSTEMI) myocardial infarction (principal); U07.1 COVID-19; N17.9 Acute kidney failure, unspecified; S82.302A Unspecified fracture of lower end of left tibia, initial encounter for closed fracture; R19.7 Diarrhea, unspecified; H40.9 Unspecified glaucoma; F32.A Depression, unspecified; W01.0XXA Fall on same level from slipping, tripping and stumbling without subsequent striking against object, initial encounter; Z87.891 Personal history of nicotine dependence
CPT/HCPCS: 27788; 27825; 36415; 36592; 71045; 73600; 73700; 80048; 80053; 80076; 82550; 82553; 83690; 83735; 84443; 84484; 85025; 85610; 85730; 87493; 87635; 93005; 93010; 93306; 96374; 96376; 97162; 97530; 99156; 99285; C9803; J1170; J1644; J1650; J2250; J2270; J3010; J3475

== ENCOUNTER → 2022-05-17 12:02 | Outpatient (CLI) | payer OTHER, SELFPAY ==
[2022-01-07 23:07] VITALS: BMI 28.7
--- NOTE | 2022-05-17 12:04 | DI.CT.S_ITS ---
PROCEDURE: CT LE LT W CON INDICATIONS: Pain in left ankle and joints of left foot TECHNIQUE: Noncontrast 1-1.5 mm axial sections acquired from above the tibiotalar joint to the bottom of the calcaneus, with coronal and sagittal reformats. COMPARISON: [facility], CT, CT LE LT WO CON, 01/07/2022, 19:18. FINDINGS: Image quality: Excellent. Bones: Patient is status post interval internal fixation of previously noted distal fibular shaft fracture with surgical plate and screws in place. Significant beam hardening artifacts are noted. Long surgical screws extending through distal tibial fibular syndesmosis is also seen. Compared to previous study, there is persistent diastasis at distal fibular shaft fracture site measures up to 3 mm with well corticated margin concerning for nonunion. No evidence of gross hardware loosening or failure is seen. Fracture involving posterior malleolus is again noted with up to 2 mm diastasis and well corticated margin at posterior malleolus fracture site. No new fracture or dislocation. Osteoarthritic changes are noted throughout midfoot and hindfoot joints with joint space narrowing, subchondral sclerosis and small marginal osteophyte formation most notably in hindfoot joints. No suspicious intraosseous lesion. No obvious osteochondral injuries of talar dome is seen. Soft tissues: There is diffuse ankle soft tissue swelling and edema. Moderate tibiotalar and subtalar joint effusion is present. No calcified intra-articular loose bodies. No abnormal soft tissue calcifications. No gross full-thickness ankle tendon rupture. No discrete drainable fluid collection or soft tissue mass is seen. IMPRESSION: 1. Post ORIF changes in distal fibular shaft and distal tibial fibular syndesmosis. Persistent up to 3 mm diastasis at distal fibular shaft fracture site with well corticated margin concerning for nonunion. No gross hardware loosening or failure. 2. Slightly displaced posterior malleolus fracture with up to 2 mm diastasis and well corticated margin suggestive of nonunion. 3. Osteoarthritic changes throughout midfoot and hindfoot joints. No acute fracture or dislocation. No suspicious bony lesions. 4. Moderate tibiotalar and subtalar joint effusion. No calcified intra-articular loose bodies or abnormal soft tissue calcifications. No gross full-thickness ankle tendon rupture. Dictated by: Mayur Sarkar M.D. on 05/17/2022 at 13:36 Approved by: Mayur Sarkar M.D. on 05/17/2022 at 13:41
== END ==
PROVIDERS: Referring Provider Orthopaedic Surgery Foot and Ankle Surgery; Visit Provider Orthopaedic Surgery Foot and Ankle Surgery
DX: S82.832G Other fracture of upper and lower end of left fibula, subsequent encounter for closed fracture with delayed healing (principal); M25.572 Pain in left ankle and joints of left foot; M25.472 Effusion, left ankle; X58.XXXD Exposure to other specified factors, subsequent encounter
CPT/HCPCS: 73700

== ENCOUNTER 2022-06-01 09:55 | Day surgery (SDC) | payer OTHER, SELFPAY ==
[2022-01-07 23:07] VITALS: BMI 28.7
[2022-05-31 09:44] VITALS: BMI 27.9
[2022-06-01] VITALS (7 sets, daily range): BP systolic 119–183; BP diastolic 73–116; PULSE 58–70; RESP 14–20; TEMP 36.1–36.6; O2SAT 95–99; BMI 27.9
--- NOTE | 2022-06-01 | DI.RAD.S_ITS ---
PROCEDURE: XR TIBIA FIBULA LT 2V INDICATIONS: REMOVE OF HARDWARE AND REPLACE TECHNIQUE: 6 intraoperative fluoroscopic views of the tibia and fibula were acquired. COMPARISON: [facility], CR, XR ANKLE 3 VIEWS WEIGHT BEARING LEFT, 05/09/2022, 15:13. FINDINGS: Intraoperative fluoroscopic images of left distal tibia/fibular shows fixation hardware in distal fibular shaft and interval removal of long fixation screws in distal tibial fibular syndesmosis. IMPRESSION: Fluoro guidance was provided intraoperatively for distal tibial fibular syndesmotic screw removal. Dictated by: Mayur Sarkar M.D. on 06/01/2022 at 13:41 Approved by: Mayur Sarkar M.D. on 06/01/2022 at 13:49
[2022-06-01 10:33] LABS: Add Manual Diff / Slide Review NO; Basophils Absolute Auto 0 /uL (0-100); Basophils Percent Auto 0.8 % (0-2); Eosinophils Absolute Auto 300 /uL (0-450); Hematocrit 33.9 % (36-46); Hemoglobin 10.9 g/dL (12.0-16.0); Lymphocytes Absolute Auto 2100 /uL (1100-4500); Lymphocytes Percent Auto 36.5 % (25-40); Mean Corpuscular HGB Conc 32.3 % (30-36); Mean Corpuscular Hemoglobin 27.3 PG (26-34); Mean Corpuscular Volume 84.7 fL (80-100); Monocytes Absolute Auto 600 /uL (0-900); Monocytes Percent Auto 10.8 % (3-14); Neutrophils Absolute Auto 2700 /uL (1500-7000); Neutrophils Percent Auto 46.9 % (50-75); Platelet Count 181 X10^3/uL (150-400); Red Cell Distribution Width 16.3 % (11.6-14.8); White Blood Cell Count 5.6 X10^3/uL (4.5-11.0)
[2022-06-01 10:45] LABS: Albumin 4.1 g/dL (3.5-5.0); BUN Creatinine Ratio 16.5 (6-22); Blood Urea Nitrogen 20 mg/dL (7-17); C-Reactive Protein Quant 0.7 mg/dL (<1.0); Calcium 8.9 mg/dL (8.4-10.2); Carbon Dioxide 27 mmol/L (22-32); Chloride 106 mmol/L (98-107); Estimated Glomerular Filt Rate 49 mL/min (>60); Glucose 86 mg/dL (80-110); HEMOLYSIS 25 (0-50); Phosphorous 3.6 mg/dL (2.8-4.1); Potassium 4.3 mmol/L (3.4-5.1); Sodium 140 mmol/L (137-145)
[2022-06-01 10:46] LABS: COVID19 -Nasal RAPID Negative (Negative)
[2022-06-01 10:53] LABS: Erythrocyte Sedimentation Rate 23 MM/HR (0-20)
[2022-06-01] MEDS: LACTATED RINGERS 1,000 ML 42 ML IV (11:15)
--- NOTE | 2022-06-01 11:29 | SUR.PREOP ---
Block start time [1125] . Monitoring initiated and maintained throughout procedure. Oxygen and medications given per anesthesiologist instructions. Patient remained stable throughout procedure, no adverse reactions noted. Block end time [].
--- NOTE | 2022-06-01 11:31 | PM.PREOP ---
Pre-operative Note COVID-19 COVID-19 status: Negative Result date/Date tested (Pos, Neg/Pending): 06/01/22 Interval Note History & Physical reviewed/Exam performed by Physician: Yes Changes to H&P: No
[2022-06-01] MEDS: CEFAZOLIN 2 GM/100 ML PREMIX 100 ML IV (11:50)
[2022-06-01] MEDS: BUPIVACAINE 0.25% (PF) 30 ML, EPINEPHrine 0.15 MG INJ (12:23)
[2022-06-01] MEDS: VANCOMYCIN 1,000 MG VIAL 1000 MG TOP (12:40)
--- NOTE | 2022-06-01 12:56 | SUR.OPER ---
Supine on padded OR bed, head on pillow, arms secured on padded arm boards at <90 degrees abduction, legs uncrossed, safety belt at thigh, tape over blanket over right leg. Left leg draped in field and supported on 3 folded bath blankets. 3 rolled bath blankets rolled and placed under patient's left buttock. Cloth tape used to secure right leg onto bed and bath blankets in place.
--- NOTE | 2022-06-01 14:14 | P.OP_ITS ---
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 She had a complicated course as she was COVID positive at the time of her injury and had EKG changes she required cardiac optimization and had a cardiac catheterization but vessels were found to be clean and no stents were placed. She then underwent ORIF of her left trimalleolar ankle fracture. Her distal fibula fracture has gone on to nonunion she has had a couple episodes of incision breakdown centrally at the lateral incision. Concern for nonunion and possible indolent deep infection. She is indicated for washout revision debridement, revision ORIF distal fibula nonunion with bone graft. Will also take bone biopsy and do hardware removal at the same time and do an exam under anesthesia upon removal of the syndesmotic screws. We discussed of deeper infection is indicated on surgical inspection or with intraoperative cultures, biopsy she may require additional antibiotics these can be oral or potentially IV antibiotics depending on findings. The risks and benefits of the procedure have been discussed with the patient and given the opportunity to ask questions. The risks of surgery include but are not limited to infection, malunion, nonunion, persistence of pain, damage to nerves and blood vessels, posttraumatic arthritis, DVT, PE, coardiopulmonary complications and . The patient expressed a thorough understanding of the risks and benefits of surgery and has elected to proceed. Consent was signed. Surgeon: Haley Wong Click Yes if Unassisted: Yes Anesthesia Type: General, Peripheral nerve block and Local Operative Notes Findings: Distal fibula nonunion this was cleaned out and the ends were drilled biopsies were taken it was washed with saline and cysto tubing then packed with calcaneal bone graft mixed with vancomycin stabilized with a 1/3 tubular plate from the Arthrex set 5 hole and a crossing 4.0 cancellous lag screw additional 3.5 locking and nonlocking screws were utilized The previous hardware was removed including the syndesmotic screws. After refixation of the distal fibula nonunion the ankle was taken through range of motion and stress exam under full live fluoroscopy and external rotation the syndesmosis was stable so no new syndesmotic fixation was placed. There was a stable the malunion of the posterior malleolus unchanged. No gross purulence was encountered. Closure Type: primary Specimen(s): other (Bone and tissue sent for culture and PCR) Prosthetic devices, grafts, tissues, transplants, or devices: Arthrex 5 hole 1/3 tubular locking plate 13.5 locking screw distally. 1x4.0 cancellous lag screw. And 1x3.5 locking screw and 2x3.5 nonlocking screws proximally Estimated Blood Loss (mL): 20 Blood products transfused: none Tourniquet time (min): 71 Procedure in detail: Patient was seen in the preoperative area the site of surgery was marked informed consent confirmed. The patient had a regional block by the anesthesia team for postoperative pain control. She was brought to the operating room and positioned supine on operative table all bony prominences well padded. A well-padded thigh tourniquet was placed. Ipsilateral thigh bump was placed. General anesthesia was administered. The left lower extremity was prepped and draped in the standard sterile fashion. A formal time-out procedure was performed confirming the patient's side and site of surgery administration of appropriate preoperative antibiotic which was 2 g of Ancef. All were in agreement. Implants were in the room accounted for. Attention was turned to the left lower extremity this was exsanguinated with the Esmarch and the tourniquet raised to 250 mmHg. The previous lateral incision was then reopened. The central area of the incision where there had been healing over the wound dehiscence was ellipsed to size and excised this did not obviously a track deep as a sinus but was a recurrent area of opening a. Wound was then dissected down to the level of the plate. Scar tissue was demonstrated but no gross purulence. The lateral plate was exposed and then removed sequentially with the screws distally and proximally including the syndesmotic screws once this was removed the rongeur was used to debride the bones and screw holes. Curette was then also used in the screw holes. Osteotome and Myrtle were used to identify the distal fibula nonunion which was then debrided with a rongeur and a curette and bone and tissue cultures were sent for culture and bacterial PCR. Once this was thoroughly debrided the wound was irrigated with cysto tubing and 3 L of saline and then gloves, instruments and drapes were changed. Bone graft calcaneus: And attention was returned to the leg. The C-arm was brought in and the calcaneal tuberosity was identified small incision was made over the tuberosity and this was dissected bluntly down to the lateral wall a posterior to the sural nerve and peroneal tendons. The 6 mm osteo auger from the Arthrex system was then loaded and placed to the bone this was placed through the calcaneus multiple passes to obtain approximately 5 cc of autograft bone. This incision was then closed with nylon suture. Attention was returned to the fibula nonunion again this was debrided with a curette and then it was drilled with a 2.5 drill proximally and distally to freshen the bone in. Some of the vancomycin powder from the 1 g of powdered vanc was mixed in with the autograft bone and then packed within the nonunion site then a lobster claw clamp was used for compression and a 5 hole Arthrex 1/3 tubular plate was fit posterior laterally in antiglide fashion along the distal fibula this was secured in place with olive wires. Next a 3.5 lag screw was placed from distal to proximal through the plate across the fracture. Proximal and distal screws were placed through the plate. The lag screw was felt to be a little long and impinging on 1 of the screw hole so this was exchanged for a shorter 4.0 cancellous screw which obtained good compression. The remainder of the screw holes were then filled. Point the ankle was taken through range of motion and stressed in external rotation. The syndesmosis was stable mortise remained symmetric. The wound was then irrigated the rest of the vancomycin powder was placed in the incision and the deep tissues were closed with 2-0 PDS subcutaneous 2-0 PDS 4-0 Monocryl and then 3-0 nylon in the skin. Tourniquet was released prior to final closure. Hemostasis was achieved. 20 cc of 0.25% Marcaine with epinephrine was injected as local anesthetic. A sterile dressing with Xeroform gauze Webril and a stirrup U splint was placed. Drapes removed. The patient was woken from anesthesia and taken to recovery room in good condition. There no immediate complications from this procedure. All counts were correct. Complications: none Post-operative Condition: stable Disposition: PACU Plan for aftercare: Nonweightbearing or touchdown balance on the left lower extremity until follow- up in the clinic in 2 weeks for wound check. Keep the splint clean dry and intact. Will take oral cephalexin until cultures return. May restart Plavix on postop day 2. Otherwise recommend aspirin 81 mg daily
== END 2022-06-01 15:25 | disposition home or self-care (01) ==
PROVIDERS: PCP Physician Assistant; Referring Provider Orthopaedic Surgery Foot and Ankle Surgery; Visit Provider Orthopaedic Surgery Foot and Ankle Surgery
PROC: (CPT 27726; principal; 2022-06-01 11:15)
DX: S82.302K Unspecified fracture of lower end of left tibia, subsequent encounter for closed fracture with nonunion (principal); T81.31XA Disruption of external operation (surgical) wound, not elsewhere classified, initial encounter
CPT/HCPCS: 27726; 20902; 36415; 64450; 73590; 76000; 80069; 85025; 85651; 86140; 87070; 87075; 87077; 87186; 87205; 87635; 87801; C9803; J0171; J0690; J2250; J2405; J2704; J3010

== ENCOUNTER → 2022-06-18 09:22 | Outpatient (CLI) | payer OTHER, SELFPAY ==
[2022-01-07 23:07] VITALS: BMI 28.7
--- NOTE | 2022-06-18 | DI.ECHO.S_ITS ---
[facility] +---------+ : : [address] : : : : [id number] : : : : Phone: [phone]+ Echocardiogram Report + + :Name: SEEMA KILLIAN Study Date: 06/18/2022 Height: 70 in : [id number] ReadingLocation: Weight: 200 lb : : Gender: Female BSA: 2.1 m2 : :: 1955 Age: 67 yrs BP: 152/82 mmHg: :Reason For Study: CM : : Performed By: Eze Weinstein : :Referring: ADRIAN HAHN : + + Interpretation Summary 1) Normal left ventricular size, thickness, wall motion, and systolic function (EF 55-60%). 2) Normal right ventricular size and function. 3) There is mild to moderate tricuspid regurgitation. 4) There is mild to moderate mitral regurgitation. 5) Compared to the Echo done 01/08/2022, LVEF has improved from 40-45% to 55- 60% on this study. Procedure: A two-dimensional transthoracic echocardiogram with color flow and Doppler was performed. The study quality was technically good. Comparison is made with the echocardiogram of 01/08/22. The patient was in normal sinus rhythm during the exam. Left Ventricle: The left ventricle is normal in size. There is normal left ventricular wall thickness. The ejection fraction is estimated to be 55-60%. There are no focal wall motion abnormalities. Diastolic parameters suggest a relaxation abnormality of the left ventricle, consistent with probable normal filling pressures. Right Ventricle: The right ventricle is normal in size and function. Atria: The left atrium is moderately dilated. Right atrial size is normal. There is no Doppler evidence for an atrial septal defect. Mitral Valve: The mitral valve is normal in structure and function. There is mild to moderate mitral regurgitation. Aortic Valve: The aortic valve is trileaflet. The aortic valve opens well. No aortic regurgitation is present. Tricuspid Valve: The tricuspid valve is normal in structure and function. There is mild to moderate tricuspid regurgitation. The right ventricular systolic pressure is estimated to be at least 25 mmHg based on an estimated right atrial pressure of 3 mm Hg. Pulmonic Valve: The pulmonic valve is normal in structure and function. There is trace pulmonic regurgitation. Great Vessels: The aortic root is normal size. The dimensions of the ascending aorta are normal. The pulmonary artery is normal size. The IVC is of normal diameter and collapses greater than 50% with a sniff. This suggests a low right atrial pressure of 3 mm Hg. Pericardium/ Pleura There is no pericardial effusion. There is no pleural effusion. MMode/2D Measurements & Calculations LVIDd: 5.1 cm LVOT diam: 2.4 cm LVIDs: 3.3 cm Ao root diam: 3.2 cm FS: 35.2 % asc Aorta Diam: 3.2 cm EPSS: 0.48 cm Ao Arch Diam (Prox Trans): 2.7 cm IVSd: 0.98 cm LVPWd: 0.72 cm LV lucio. diameter/BSA (cm/m^2): 2.4 LV sys. diameter/BSA (cm/m^2): 1.6 LA A2 area: 26.8 cm2 RA long axis: 5.5 cm LA A4 area: 24.2 cm2 RA area: 18.6 cm2 LA length (vol): 5.9 cm RA vol: 53.3 ml LA vol: 92.3 ml RA : 25.5 ml/m2 LA vol index: 44.2 ml/m2 IVC diam: 1.2 cm TAPSE: 2.6 cm Doppler Measurements & Calculations Ao V2 max: 90.7 cm/sec LVOT Max Dante: 85.3 cm/sec Ao V2 mean: 74.9 cm/sec LV V1 max P.9 mmHg Ao max P.3 mmHg LV V1 VTI: 19.5 cm Ao mean P.3 mmHg LUIS M(I,D): 4.1 cm2 Ao V2 VTI: 21.1 cm LUIS M(V,D): 4.2 cm2 sev ratio: 0.92 LUIS M indexed to BSA (cm^2/m^2): 2.0 MV E max dante: 64.1 cm/sec TR max dante: 232.5 cm/sec MV A max dante: 45.6 cm/sec TR max P.6 mmHg MV E/A: 1.4 PA V2 max: 58.7 cm/sec Med Peak E' Dante: 5.3 cm/sec PA V2 mean: 45.8 cm/sec E/E' med: 12.2 PA mean P.89 mmHg Lat Peak E' Dante: 6.4 cm/sec PA pr(Accel): 19.1 mmHg E/E' lat: 10.0 E/e' average: 11.1 MV dec time: 0.38 sec MR PISA: 1.9 cm2 SV(LVOT): 87.3 ml MR flow rate: 71.5 cm3/sec MR PISA radius: 0.56 cm Reading Physician:04:39 PM
== END ==
PROVIDERS: PCP Physician Assistant; Referring Provider Internal Medicine Cardiovascular Disease; Visit Provider Internal Medicine Cardiovascular Disease
DX: I08.1 Rheumatic disorders of both mitral and tricuspid valves (principal); I42.8 Other cardiomyopathies
CPT/HCPCS: 93306

== ENCOUNTER → 2022-07-12 18:05 | Outpatient (ROUT) | payer OTHER, SELFPAY ==
[2022-01-07 23:07] VITALS: BMI 28.7
[2022-07-12 18:17] LABS: Add Manual Diff / Slide Review NO; Basophils Absolute Auto 0 /uL (0-100); Basophils Percent Auto 0.7 % (0-2); Eosinophils Absolute Auto 200 /uL (0-450); Eosinophils Percent Auto 4.2 % (2-4); Hemoglobin 10.8 g/dL (12.0-16.0); Lymphocytes Absolute Auto 2000 /uL (1100-4500); Lymphocytes Percent Auto 35.3 % (25-40); Mean Corpuscular HGB Conc 32.8 % (30-36); Mean Corpuscular Hemoglobin 27.5 PG (26-34); Mean Corpuscular Volume 83.8 fL (80-100); Monocytes Absolute Auto 500 /uL (0-900); Monocytes Percent Auto 9.1 % (3-14); Neutrophils Absolute Auto 2800 /uL (1500-7000); Neutrophils Percent Auto 50.7 % (50-75); Platelet Count 186 X10^3/uL (150-400); Red Blood Cell Count 3.94 X10^6/uL (4.0-5.2); Red Cell Distribution Width 15.8 % (11.6-14.8); White Blood Cell Count 5.6 X10^3/uL (4.5-11.0)
[2022-07-12 18:36] LABS: Alanine Aminotransferase 41 IU/L (<35); Albumin 4.1 g/dL (3.5-5.0); Albumin Globulin Ratio 1.3 (1.0-2.8); Alkaline Phosphatase 171 U/L (38-126); Aspartate Aminotransferase 41 IU/L (14-36); BUN Creatinine Ratio 17.9 (6-22); Bilirubin Total 0.4 mg/dL (0.2-1.3); Blood Urea Nitrogen 19 mg/dL (7-17); C-Reactive Protein Quant 0.6 mg/dL (<1.0); Calcium 9.1 mg/dL (8.4-10.2); Carbon Dioxide 29 mmol/L (22-32); Chloride 103 mmol/L (98-107); Estimated Glomerular Filt Rate 57 mL/min (>60); Globulin 3.1 g/dL (1.7-4.1); Glucose 142 mg/dL (80-110); HEMOLYSIS < 15 (0-50); Potassium 4.3 mmol/L (3.4-5.1); Sodium 141 mmol/L (137-145); Total Protein 7.2 g/dL (6.3-8.2)
== END ==
PROVIDERS: PCP Physician Assistant; Visit Provider Internal Medicine Infectious Disease
DX: M86.9 Osteomyelitis, unspecified (principal)
CPT/HCPCS: 80053; 85025; 86140

== ENCOUNTER → 2022-10-24 12:15 | Outpatient (CLI) | payer OTHER, SELFPAY ==
[2022-01-07 23:07] VITALS: BMI 28.7
--- NOTE | 2022-10-24 12:18 | DI.CT.S_ITS ---
PROCEDURE: CT LE LT W CON INDICATIONS: Other fracture of left lower leg, TECHNIQUE: Noncontrast 1-1.5 mm axial sections acquired from above the tibiotalar joint to the bottom of the calcaneus, with coronal and sagittal reformats. COMPARISON: [facility], CT, CT LE LT WO CON, 05/17/2022, 12:12. FINDINGS: Image quality: Excellent. Bones: Again noted is prior internal fixation of distal fibular shaft and lateral malleolus with surgical hardware in place. Hardware positions are unchanged from prior study. No evidence of hardware loosening or failure. There is interval removal of previously noted syndesmotic screws. No acute fracture or dislocation. Partial bony union at distal fibular shaft fracture site is seen with persistent up to 5 mm diastasis in anterior to mid portion of distal fibular shaft fracture site and well corticated margin concerning for nonunion. Partial bony union involving posterior aspect of distal tibial fracture site is also seen. Osteoarthritic changes are seen in midfoot and hindfoot joints. Small radiolucent areas involving weight-bearing portion of medial talar dome is seen concerning for osteochondral injuries. No suspicious bony lesions. Soft tissues: There is significant soft tissue edema and swelling surrounding distal lower leg and ankle joint extending to dorsal aspect of midfoot and hindfoot. Moderate tibiotalar joint effusion is likely present, no gross intra-articular loose bodies. No full-thickness tendon rupture. No abnormal soft tissue calcifications. IMPRESSION: 1. Interval removal of syndesmotic screws. Stable post ORIF changes in distal fibular shaft/lateral malleolus. No gross hardware loosening or failure. 2. Partial bony union in distal fibular shaft fracture site with significant diastasis and well corticated margin in anterior to midportion of distal fibular shaft fracture site concerning for nonunion. Partial union also seen in posterior malleolus fracture site. No acute fracture or dislocation. Midfoot and hindfoot joint osteoarthritis. 3. Ankle soft tissue swelling. Moderate tibiotalar joint effusion. No abnormal soft tissue calcifications or gross calcified intra-articular loose bodies. No full-thickness tendon rupture. Dictated by: Mayur Sarkar M.D. on 10/24/2022 at 15:51 Approved by: Mayur Sarkar M.D. on 10/24/2022 at 15:55
== END ==
PROVIDERS: PCP Physician Assistant; Referring Provider Orthopaedic Surgery Foot and Ankle Surgery; Visit Provider Orthopaedic Surgery Foot and Ankle Surgery
DX: S82.62XD Displaced fracture of lateral malleolus of left fibula, subsequent encounter for closed fracture with routine healing (principal); M19.072 Primary osteoarthritis, left ankle and foot; M25.475 Effusion, left foot; M79.89 Other specified soft tissue disorders; X58.XXXD Exposure to other specified factors, subsequent encounter
CPT/HCPCS: 73700

== ENCOUNTER 2023-01-11 08:14 | Day surgery (SDC) | payer OTHER, SELFPAY ==
[2022-01-07 23:07] VITALS: BMI 28.7
[2023-01-04 14:00] VITALS: BMI 29.4
[2023-01-11] VITALS (11 sets, daily range): BP systolic 118–176; BP diastolic 73–117; PULSE 59–83; RESP 12–17; TEMP 36.3–36.6; O2SAT 93–100; BMI 29.4
--- NOTE | 2023-01-11 09:10 | P.HP_ITS ---
History of Present Illness History of Present Illness Date Patient Seen: 01/11/23 Time Patient Seen: 09:10 Chief complaint: Left Hardware Removal Narrative: Patient is a 67-year-old female that had a left ankle fracture dislocation 1 year ago that had a prolonged course and had delayed treatment due to cardiac abnormalities and COVID positive status. Once she was cleared by cardiology she had open reduction internal fixation of her ankle fracture malunion. 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 She does have ankle malunion and posttraumatic arthritis. She understands that she may require additional procedures in the future to address her arthritis but most important currently is to confirm infection eradication. She is been indicated for hardware removal bone biopsy and peroneal tendon debridement. [facility] Medical History (Updated 01/11/23 @ 09:14 by Haley Wong MD) Ankle fracture Arthritis COVID-19 virus infection (01/10/22) DVT (deep venous thrombosis) Easy bruisability Glaucoma Hardware complicating wound infection Heart attack HTN (hypertension) Migraines Surgical History History of bilateral cataract extraction History of eye surgery History of open reduction and internal fixation (ORIF) procedure (02/27/22) History of orthopedic surgery (06/01/22) History of spinal fusion (01/2014) History of spinal fusion (12/21/20) History of trabeculectomy Hx of cervical spine surgery (03/2001) Hx of tubal ligation Family History Mother Infection, dialysis vascular access Social History household members: none Smoking Status: Former smoker alcohol intake: current Meds Home Medications and Allergies Home Medications Medication Instructions Recorded Confirmed Type eszopiclone 3 mg tablet 3 mg PO BEDTIME PRN Sleep 09/29/20 01/11/23 History latanoprost 0.005 % eye drops 1 drp EYE-BOTH BEDTIME 09/29/20 01/11/23 History mirabegron 50 mg tablet,extended 50 mg PO DAILY 09/29/20 01/11/23 History release 24 hr (Myrbetriq) paroxetine HCl 40 mg tablet 40 mg PO DAILY 09/29/20 01/11/23 History pregabalin 75 mg capsule 75 mg PO Q8H 09/29/20 01/11/23 History sumatriptan succinate 100 mg tablet 100 mg PO PRN PRN Migraine Headache 09/29/20 01/11/23 History timolol maleate 0.5 % once daily 1 drp EYE-BOTH BID 09/29/20 01/11/23 History eye drops tizanidine 4 mg tablet 8 mg PO BEDTIME #30 tabs 12/24/20 01/11/23 Rx solifenacin 10 mg tablet 10 mg PO QAM 01/07/22 01/11/23 History metoprolol succinate 25 mg 25 mg PO BID #60 tabs 01/10/22 01/11/23 Rx tablet,extended release 24 hr acetaminophen 500 mg tablet 1,000 mg PO Q6H PRN Pain 05/31/22 01/11/23 History brimonidine 0.2 % eye drops 1 drp EYE-BOTH BID 05/31/22 01/11/23 History dorzolamide 2 % eye drops 1 drp EYE-BOTH BID 05/31/22 01/11/23 History rosuvastatin 10 mg tablet 10 mg PO BEDTIME 05/31/22 01/11/23 History ondansetron 4 mg disintegrating 4 mg PO Q8H PRN nausea and 01/11/23 Rx tablet vomiting #5 tabs oxycodone 5 mg tablet 5 mg PO Q4H PRN pain #30 tabs 01/11/23 Rx Allergies Allergy/AdvReac Type Severity Reaction Status Date / Time Penicillins Allergy Severe Rash Verified 01/11/23 08:42 tetracycline Allergy Severe Rash Verified 01/11/23 08:42 Review of Systems Review of Systems Narrative: No fevers chills nausea or vomiting. Complains of left ankle pain predominantly posterolaterally some anterolateral ankle pain. No instability. Right-sided back pain. ROS: Yes All systems reviewed with the patient and are negative except as otherwise documented Exam Narrative Exam Narrative: General exam is alert oriented female in no acute distress. HEENT normocephalic atraumatic. Heart regular rate and rhythm. Lungs clear to auscultation bilaterally. Abdomen is soft. Normal alignment right lower extremity. Normal range of motion bilateral upper extremities. Left ankle demonstrates slight valgus alignment. Moderate swelling no blisters no erythema. Healed lateral scar with thickened adhesions and scar tissue tenderness along the lateral plate and posterolateral along the peroneal tendons. Reduced inversion eversion range of motion. No knee pain or swelling. Palpable dorsalis pedis pulse. Mild hammering of the lesser toes and some subjective decreased sensation over the toes. Assessment & Plan Assessment and plan (1) Closed fracture of left ankle with malunion: Status: Acute (2) Painful orthopaedic hardware: Status: Acute (3) Peroneal tendinosis: Status: Acute Plan Patient has a history of a ankle fracture dislocation and malunion. She had a infected nonunion that was treated with revision ORIF IV antibiotics and bone grafting. She is been indicated for hardware removal to reduce the risk of persistent infection and bone biopsy as along with peroneal tendon debridement for symptomatic peroneal tendinosis. She will be weight-bearing in a boot shoe or brace postoperatively as tolerated. Elevate as much as possible for the 1st 2 weeks after surgery to aid with incision healing. She understands that she does have ankle malunion and arthritis and may require subsequent procedures in the future but the priority now is to remove the painful hardware debride the peroneal tendons and take a bone biopsy to confirm eradication of infection. Discussed additional long-term nonsurgical ankle arthritis options including bracing anti-inflammatories injections potential future surgical options of ankle fusion or ankle replacement but these would need to depend on infection eradication. Today she is indicated for hardware removal peroneal tendon debridement and repair as indicated and bone biopsy. The risks and benefits of the procedure have been discussed with the patient and given the opportunity to ask questions. The risks of surgery include but are not limited to infection, malunion, nonunion, persistence of pain, damage to nerves and blood vessels, posttraumatic arthritis, DVT, PE, cardiopulmonary complications and . The patient expressed a thorough understanding of the risks and benefits of surgery and has elected to proceed. Consent was signed. Time Spent With Patient Time with patient: less than 30 minutes Quality VTE Deep Vein Thrombosis/Pulmonary Embolism Present on Admission: No
[2023-01-11] MEDS: LACTATED RINGERS 1,000 ML 42 ML IV (09:18)
[2023-01-11] MEDS: CEFAZOLIN 2 GM/100 ML PREMIX 100 ML IV (09:42)
[2023-01-11] MEDS: BUPIVACAINE 0.25% W/ EPI 30 ML VIAL INJ (10:05)
--- NOTE | 2023-01-11 10:05 | SUR.OPER ---
Supine on padded OR bed, head on pillow, arms secured on padded arm boards at <90 degrees abduction, legs uncrossed, safety belt at thigh, tape over blanket over lower legs.
--- NOTE | 2023-01-11 10:50 | P.OP_ITS ---
Operative Date/Time/Diagnoses Date of procedure: 01/11/23 Time of procedure: 10:00 Pre-op diagnosis: Left ankle painful orthopedic hardware Left ankle malunion Peroneal tendinosis, left Post-op diagnosis: other (Same as preoperative diagnosis with the addition of left peroneus brevis tendon tear) Procedure & Clinicians Procedure: 1. Left peroneus brevis tendon repair CPT code 06688 2. Removal of hardware left ankle plate and 5 screws CPT code 33234 3. Debridement extensive tendinosis peroneus longus and brevis tendons posterior ankle debridement of low-lying muscle belly peroneus brevis, tenosynovectomy CPT code 90491 Same procedure as scheduled: Yes Indications: Patient is a 67-year-old female with a posttraumatic arthritis left ankle and malunion after a left ankle fracture dislocation complicated by acute COVID and EKG changes that required cardiac catheterization in 6 weeks for cardiac clearance for ankle surgery. She also had a postoperative infection and nonunion and revision ORIF with bone grafting and IV antibiotic treatment. She is now completed infection treatment. She has posttraumatic arthritis painful orthopedic hardware and pain along her peroneal tendons. She is been indicated for hardware removal due to her previous infection and symptomatic hardware as well as peroneal debridement and repair as indicated. She does have known posttraumatic arthritis and may require additional treatments in the future. She understands this. The risks and benefits of the procedure have been discussed with the patient and given the opportunity to ask questions. The risks of surgery include but are not limited to infection, malunion, nonunion, persistence of pain, damage to nerves and blood vessels, posttraumatic arthritis, DVT, PE, cardiopulmonary complications and . The patient expressed a thorough understanding of the risks and benefits of surgery and has elected to proceed. Consent was signd. Surgeon: Haley Wong Click Yes if Unassisted: Yes Anesthesia Type: General and Local Operative Notes Findings: Extensive tendinosis involving the peroneus longus and brevis tendons with low- lying muscle belly, tenosynovitis and adhesions to the fibula and posterior fibula plate. Furthermore there is a longitudinal tear in the peroneus brevis tendon that was debrided and then tubularized. The retained posterolateral fibular plate was removed along with 5 screws. There was no motion through the fracture site indicating healed fracture. Periosteum and bone from the left fibula was taken for bone culture. There was no abscess or sign of current infection. There was extensive tenosynovitis along the peroneal tendons. Closure Type: primary Specimen(s): other (Bone periosteum left fibula for culture) Estimated Blood Loss (mL): 2 Blood products transfused: none Tourniquet time (min): 26 Procedure in detail: Patient was seen in the preoperative area the site of surgery was marked informed consent confirmed. She was brought back to the operating room by the anesthesia team positioned supine on operative table. An ipsilateral thigh bump was placed. A well-padded thigh tourniquet was placed. The left lower extremity was prepped and draped in the standard sterile fashion. A formal time-out procedure was performed confirming the patient's side and site of surgery administration of appropriate preoperative antibiotic. This was Ancef which she tolerated well. Attention was turned to the left lower extremity the Esmarch was used for exsanguination the tourniquet raised from the thigh to 250 mmHg. The previous lateral incision was then reopened sharply through the skin with dissection down to the peroneal tendon sheath. This was carefully opened there was extensive scar tissue and adhesions along the peroneal tendons and a tenosynovitis involving both the peroneus longus and brevis tendons. Furthermore there was a longitudinal tear in the peroneal brevis tendon and adhesive low-lying muscle belly. Peroneal tendons were thoroughly debrided with a tenosynovectomy and adhesions to the peroneal sheath were removed. Low-lying muscle belly was debrided. The peroneus brevis tendon was trimmed and then the tear was repaired with a tubularizing 2-0 Vicryl stitch. Once this was completed the peroneal tendons were retracted posteriorly and the posterolateral fibula plate was exposed. The 5 screws removed using the screwdriver and the 1/3 tubular plate was then removed. A rongeur was used to remove any prominences off the posterior fibula and a curette was used to obtain bone sample from previous fracture site to send for culture. Once this was completed the wound was thoroughly irrigated. There was smooth gliding of the peroneal tendons with ankle range of motion. Tourniquet was released hemostasis was achieved. Deep tissues were closed with 2-0 Vicryl suture subcutaneous with 4-0 Monocryl and the skin with 3-0 nylon suture. 30 cc of 0.25% Marcaine with epinephrine were used as local anesthesia. Intraoperative fluoroscopy x-ray confirmed complete hardware removal from the left fibula. Patient was placed into a sterile dressing with Xeroform gauze Webril and an Castro wrap. Then a stirrup Orthoglass splint was placed. The pa tient was woken from anesthesia and taken to recovery room in good condition there no immediate complications from this procedure. All counts were correct. Complications: none Post-operative Condition: stable Disposition: PACU Plan for aftercare: Weightbear as tolerated. She is placed in a temporary stirrup splint may take this off and use her brace or walking boot once she gets home. Keep underlying dressing in place 2 weeks and dry for incision healing. Follow up in 2 weeks for suture removal.
[2023-01-11] MEDS: LABETALOL 20 MG/4 ML SYRINGE 5 MG IV ×2 (11:11→11:19)
[2023-01-11] MEDS: OXYCODONE IR 5 MG TABLET PO (11:30)
== END 2023-01-11 12:15 | disposition home or self-care (01) ==
PROVIDERS: PCP Physician Assistant; Referring Provider Orthopaedic Surgery Foot and Ankle Surgery; Visit Provider Orthopaedic Surgery Foot and Ankle Surgery
PROC: (CPT 27675; principal; 2023-01-11 10:00)
DX: T84.84XA Pain due to internal orthopedic prosthetic devices, implants and grafts, initial encounter (principal); S82.892P Other fracture of left lower leg, subsequent encounter for closed fracture with malunion; M67.88 Other specified disorders of synovium and tendon, other site; Z87.891 Personal history of nicotine dependence
CPT/HCPCS: 27675; 20680; 87070; 87075; 87205; J0330; J0690; J1100; J2250; J2405; J2704; J3010

== ENCOUNTER 2023-05-10 16:36 | Observation (INO) | payer OTHER, SELFPAY ==
[2022-01-07 23:07] VITALS: BMI 28.7
[2023-05-08 08:45] VITALS: BMI 29.4
[2023-05-10] VITALS (32 sets, daily range): BP systolic 114–209; BP diastolic 55–157; PULSE 70–96; RESP 12–18; TEMP 35.7–36.6; O2SAT 90–100; BMI 29.4
--- NOTE | 2023-05-10 | DI.RAD.S_ITS ---
PROCEDURE: XR CHEST 1V INDICATIONS: rule out aspiration TECHNIQUE: One view of the chest was acquired. COMPARISON: [facility], CR, XR CHEST 1V, 01/07/2022, 15:26. FINDINGS: Surgical changes and devices: None. Lungs and pleura: Lungs are abnormal with a mild alveolar infiltration pattern seen at the right upper lobe and to a slight degree at the right lower lobe. Definite alveolar infiltration on the left is not found. The inspiratory volume is reduced.. No pleural effusions or pneumothorax. Mediastinum: Mediastinal contours appear normal. Heart size is normal. Bones and chest wall: No suspicious bony lesions. Overlying soft tissues appear unremarkable. IMPRESSION: Pneumonia or aspiration right lung. Mild in overall severity. Dictated by: Fredy Shaw M.D. on 05/10/2023 at 14:32 Approved by: Fredy Shaw M.D. on 05/10/2023 at 14:33
[2023-05-10] MEDS: LACTATED RINGERS 1,000 ML 84 ML IV (09:51)
--- NOTE | 2023-05-10 10:20 | P.HP_ITS ---
History of Present Illness History of Present Illness Date Patient Seen: 05/10/23 Time Patient Seen: 10: Chief complaint: Left Ankle Fusion Narrative: Status post ankle ORIF on 04/29/2022 this was a delayed treatment of an injury due to acute cardiac changes she was not cleared for surgery until 2 months after the injury during which she had a ankle fracture dislocation. She had a postoperative infection and has had subsequent treatment with IV antibiotics and hardware removal. She had a bone biopsy that showed no growth or evidence of persistent infection. She has persistent pain associated with left ankle posttraumatic arthritis. She is been indicated for left ankle fusion. [facility] Medical History Hardware complicating wound infection DVT (deep venous thrombosis) Ankle fracture Heart attack HTN (hypertension) Migraines COVID-19 virus infection (01/10/22) Easy bruisability Arthritis Glaucoma Surgical History History of orthopedic surgery (01/11/23) History of open reduction and internal fixation (ORIF) procedure (02/27/22) History of orthopedic surgery (06/01/22) History of spinal fusion (12/21/20) Hx of tubal ligation History of trabeculectomy History of bilateral cataract extraction History of eye surgery Hx of cervical spine surgery (03/2001) History of spinal fusion (01/2014) Family History Mother Infection, dialysis vascular access Social History household members: none Smoking Status: Former smoker alcohol intake: current Meds Home Medications and Allergies Home Medications Medication Instructions Recorded Confirmed Type eszopiclone 3 mg tablet 3 mg PO BEDTIME PRN Sleep 09/29/20 05/10/23 History latanoprost 0.005 % eye drops 1 drp EYE-BOTH BEDTIME 09/29/20 01/11/23 History mirabegron 50 mg tablet,extended 50 mg PO DAILY 09/29/20 05/10/23 History release 24 hr (Myrbetriq) paroxetine HCl 40 mg tablet 40 mg PO DAILY 09/29/20 05/10/23 History pregabalin 75 mg capsule 75 mg PO Q8H 09/29/20 05/10/23 History timolol maleate 0.5 % once daily 1 drp EYE-BOTH BID 09/29/20 01/11/23 History eye drops tizanidine 4 mg tablet 8 mg (2 x 4 mg) PO BEDTIME #30 tabs 12/24/20 05/10/23 Rx solifenacin 10 mg tablet 10 mg PO QAM 01/07/22 05/10/23 History metoprolol succinate 25 mg 25 mg PO BID #60 tabs 01/10/22 05/10/23 Rx tablet,extended release 24 hr acetaminophen 500 mg tablet 1,000 mg PO Q6H PRN Pain 05/31/22 05/10/23 History brimonidine 0.2 % eye drops 1 drp EYE-BOTH BID 05/31/22 01/11/23 History dorzolamide 2 % eye drops 1 drp EYE-BOTH BID 05/31/22 01/11/23 History rosuvastatin 10 mg tablet 10 mg PO BEDTIME 05/31/22 05/10/23 History oxycodone 5 mg tablet 5 mg PO Q4H PRN pain #30 tabs 01/11/23 Rx Allergies Allergy/AdvReac Type Severity Reaction Status Date / Time Penicillins Allergy Severe Rash Verified 05/10/23 09:18 tetracycline Allergy Severe Rash Verified 05/10/23 09:18 Review of Systems Review of Systems ROS: Yes All systems reviewed with the patient and are negative except as otherwise documented Exam Vital Signs (past 8 hours): - 05/10/23 09:29 Temperature 97.1 F L Pulse Rate 72 Respiratory Rate 16 Blood Pressure 132/55 L Pulse Oximetry 98 Oxygen Delivery Method Room Air Oxygen Delivery Method Room Air Narrative Exam Narrative: Alert and oriented no acute distress Heart regular rate and rhythm Lungs clear to auscultation bilateral Left lower extremity with grossly normal alignment mild valgus stiff hindfoot reduced ankle range of motion. Medial and lateral incisions well healed. Moderate swelling it is unchanged. No erythema no drainage. Of dorsiflexion plantar flexion reduced range of motion proximally 30 degree arc. Assessment & Plan Assessment and plan (1) Post-traumatic arthritis of ankle: Status: Acute Plan Patient is a 67-year-old female with posttraumatic arthritis of the left ankle from a fracture dislocation that was complicated by nonunion and infection hardware has been removed. Recent bone biopsy was negative for infection. She has end-stage ankle arthritis. We discussed options or tibiotalar fusion verses tibiotalar arthroplasty. We discussed the risks and benefits of both procedures. She is interested in ankle fusion. She is been indicated for left ankle fusion to help correct her deformity and pain control. Discussed the use of a rocker sole shoe may be required postoperatively to help normalize gait. The risks and benefits of the procedure have been discussed with the patient and given the opportunity to ask questions. The risks of surgery include but are not limited to infection, malunion, nonunion, persistence of pain, damage to nerves and blood vessels, posttraumatic arthritis, DVT, PE, coardiopulmonary complications and . The patient expressed a thorough understanding of the risks and benefits of surgery and has elected to proceed. Consent was signed. Quality VTE Deep Vein Thrombosis/Pulmonary Embolism Present on Admission: No
--- NOTE | 2023-05-10 10:31 | SUR.OPER ---
Supine on padded OR bed, head on pillow, arms secured on padded arm boards at <90 degrees abduction, legs uncrossed, safety belt at thigh, tape over blanket over lower legs.
[2023-05-10] MEDS: CEFAZOLIN 2 GM/100 ML PREMIX 100 ML IV ×2 (11:00→18:50)
[2023-05-10] MEDS: BUPIVACAINE 0.25% (PF) 30 ML, EPINEPHrine 0.15 MG INJ (13:07)
[2023-05-10] MEDS: LABETALOL 20 MG/4 ML SYRINGE IV (13:40)
--- NOTE | 2023-05-10 13:40 | P.OP_ITS ---
Operative Date/Time/Diagnoses Date of procedure: 05/10/23 Time of procedure: 11:00 Pre-op diagnosis: Posttraumatic arthritis left ankle Post-op diagnosis: same Procedure & Clinicians Procedure: Arthrodesis ankle open left CPT code 16616 Same procedure as scheduled: Yes Indications: Patient is a 67-year-old female posttraumatic arthritis of her left ankle after an ankle fracture dislocation. She is been indicated for ankle arthrodesis as a end-stage treatment for posttraumatic arthritis. Patient has been indicated for use of allograft bone graft to aid with fusion. The risks and benefits of the procedure have been discussed with the patient and given the opportunity to ask questions. The risks of surgery include but are not limited to infection, malunion, nonunion, persistence of pain, damage to nerves and blood vessels, posttraumatic arthritis, DVT, PE, cardiopulmonary complications and . The patient expressed a thorough understanding of the risks and benefits of surgery and has elected to proceed. Consent was signed. Surgeon: Haley Wong Click Yes if Unassisted: Yes Anesthesia Type: General, Peripheral nerve block and Local Operative Notes Findings: End-stage ankle arthritis tibiotalar joint Closure Type: primary Specimen(s): none sent Prosthetic devices, grafts, tissues, transplants, or devices: H[place]ory 28 contoured standard plate 4.5 nonlocking and locking screws proximally 4.2 and 3.5 locking screws distally 1x65 mm 7 0 headed cannulated lag screw short thread Applied: other (Splint) Estimated Blood Loss (mL): 30 Blood products transfused: none Tourniquet time (min): 85 Procedure in detail: Patient was seen in the preoperative area the site of surgery was marked informed consent confirmed. Patient was taken back to the operating room by the anesthesia team positioned supine on operative table. General anesthetic was administered. A preoperative regional block was placed by the anesthesia team for postoperative pain control. A well-padded thigh tourniquet was placed on the left side as well as an ipsilateral thigh bump. SCD was placed on the contralateral lower extremity. The left lower extremity was prepped and draped in standard sterile fashion. A formal time-out procedure was completed confirming the patient's side and site of surgery administration of appropriate preoperative antibiotic. All were in agreement. Implants were in the room and accounted for. Attention turned to the left ankle Esmarch was used for exsanguination and the tourniquet elevated on the thigh to 250 mmHg. A midline anterior incision was drawn just off of the tibial crest down bisecting the medial and lateral malleoli. This was taken down through the skin subcutaneous tissue care was taken to expose and protect the superficial peroneal nerve branch. This was retracted laterally. The tendon sheaths were opened over the EHL the EHL and neurovascular bundle retracted laterally tibialis anterior was kept in its sheath and retracted medially. Dissection was continued down onto the distal tibia and then to the tibiotalar joint. The arthrotomy was made there was very thick scar tissue of the anterior ankle that was elevated using the periosteal elevator and Bovie cautery and retracted. This exposed the tibiotalar joint which demonstrated full-thickness cartilage loss. K-wire distractor was used for distraction as well as lamina spreaders to expose the tibiotalar joint and Homans were placed in the gutters. The remainder of the cartilage was removed using a combination of the Synthes joint prep set and osteotomes curette an apparatus from the paragon set. Joint was prepared down to bleeding cancellous bone this was then drilled using the fenestrated drill from the paragon set and then the fish instrument specialist was used to complete the joint preparation. 5 cc of demineralized cortical fibers were placed for bone graft. The joint was aligned and checked under fluoroscopy. The anterior contoured plate from the paragon set was then placed along and fit well. This was then secured with olive wires. Because of some minor posterior subluxation posterior of the talus the talus was secured 1st to the plate which would help bring this forward. Next and temp was used to use the guidewire from the plate for a separate crossing lag screw however this did run into the proximal talar screw therefore this was redirected freehand into the talus. This was overdrilled and a 65 mm 7 0 headed cannulated lag screw was placed. Then attention was returned to the plate proximally a 4 5 cortical nonlocking screw was placed by 4-0 delay in the oval hole after the olive wires were removed. This brought the proximal plate down to the bone. Alignment was checked AP and lateral planes is deborah ropriate. Remainder of the proximal holes were filled with 4.5 locking screws. Distally an additional proximal medial talar screw was attempted to direct around the lag screw and this past was but was found to be in the gutter and stripped and to the plate this was removed. And this hole was left open. Remainder of the bone graft was packed around the fusion site. Excellent position of the tibia and talus was verified under visual and fluoroscopic evaluation. Final x-rays were obtained. Tourniquet was released hemostasis was achieved and the wound was closed in layers with 0 Vicryl deep and in the capsule and along the retinaculum. 2-0 subcutaneous and 4-0 Monocryl and nylon in the skin. A bulky Butcher dressing was placed with a sterile splint Xeroform gauze bulky Butcher cotton and a posterior and U splint. The patient was awakened from anesthesia and taken to the recovery room. Complications: other (Patient bit her tongue while waking up from anesthesia) Post-operative Condition: stable Disposition: PACU Plan for aftercare: Nonweightbearing left lower extremity. Elevate above the heart level as much as possible for the 1st 2 weeks after surgery. Anticipate nonweightbearing 8 weeks. Aspirin 325 mg daily or 4 baby aspirin to equal the same dose (324mg) daily for DVT prophylaxis
--- NOTE | 2023-05-10 13:44 | DI.RAD.S_ITS ---
PROCEDURE: XR ANKLE LT MIN 3V INDICATIONS: FUSION OF LEFT ANKLE TECHNIQUE: 2 views of the ankle were acquired. COMPARISON: [facility], CR, XR ANKLE LT 2V, 01/07/2022, 18:42. FINDINGS: 2 spot fluoroscopic films of the left ankle are obtained and show surgical hardware with plate and screw fixation of the ankle joint with a single surgical screw extending through the ankle joint for arthrodesis. Surgical hardware appears in good position without evidence for hardware complication. No acute osseous abnormality is seen. IMPRESSION: Satisfactory appearance of an arthrodesis hardware transfixing the left ankle joint. Dictated by: Jose M Pardo M.D. on 05/10/2023 at 14:17 Approved by: Jose M Pardo M.D. on 05/10/2023 at 14:19
--- NOTE | 2023-05-10 13:47 | SUR.PHASEI ---
At 1330 pt arrived to PACU and was very hypertensive and Vi Langford CRNA ordered labatolol for pt. Pt also arrived with a nasal airway . Pt had bitten her tongue while being extubated per Vi Langford CRNA. Pt was given Labatolol IV 10mg and her blood pressure came down to 133/72. Pt remains on O2 via simple mask.
[2023-05-10] MEDS: OXYCODONE IR 5 MG TABLET PO ×4 (14:06→23:55)
[2023-05-10] MEDS: ALBUTEROL/IPRATROPIUM 3 ML AMPUL INH (14:27)
--- NOTE | 2023-05-10 14:46 | SUR.PHASEI ---
Pt was given a duo-neb and then she was tried on a room air trial and then she dropped her O2 sat to 88 and would not stay above 90 % on room air. Pt was given her incentive spirometer to do and she was able to do it to 1000 ml. She is coughing and deep breathing. Pt's lungs clear but she continues to have a non productive cough. Informed Dr. Wong .
--- NOTE | 2023-05-10 14:57 | SUR.PHASEI ---
pt continues to have a cough and it is currently non-productive.
--- NOTE | 2023-05-10 15:15 | SUR.PHASEI ---
Pt's O2 sat drops on room air but the hospitalist is coming to see pt. to decide if she is to be admitted or discharged .
--- NOTE | 2023-05-10 15:24 | SUR.PHASEI ---
I have pt doing her incentive spriometer . She is doing to 1000
--- NOTE | 2023-05-10 15:26 | SUR.PHASEI ---
Awaiting hospitalist to come and see pt.
--- NOTE | 2023-05-10 15:57 | P.CONS_ITS ---
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 This was complicated by a post op infection with IV antibiotics and hardware removal, complicated by arthritis and underwent left ankle fusion today with Dr. Wong. Dr. Wong called after the case for consultation as the patient was newly hypoxic requiring oxygen after surgery, there was reported aspiration during the case. She currently feels well in PACU. on room air she occasionally drops to 86% with quick recovery to the low 90s. She was admitted for observation. Chest xray is read as a right lung aspiration, however in my review of her opacities compared to prior imaging there may be a slight increase in opacities but appears similar to previous imaging. Meds Home Medications and Allergies Home Medications Medication Instructions Recorded Confirmed Type eszopiclone 3 mg tablet 3 mg PO BEDTIME PRN Sleep 09/29/20 05/10/23 History latanoprost 0.005 % eye drops 1 drp EYE-BOTH BEDTIME 09/29/20 01/11/23 History mirabegron 50 mg tablet,extended 50 mg PO DAILY 09/29/20 05/10/23 History release 24 hr (Myrbetriq) paroxetine HCl 40 mg tablet 40 mg PO DAILY 09/29/20 05/10/23 History pregabalin 75 mg capsule 75 mg PO Q8H 09/29/20 05/10/23 History timolol maleate 0.5 % once daily 1 drp EYE-BOTH BID 09/29/20 01/11/23 History eye drops tizanidine 4 mg tablet 8 mg (2 x 4 mg) PO BEDTIME #30 tabs 12/24/20 05/10/23 Rx solifenacin 10 mg tablet 10 mg PO QAM 01/07/22 05/10/23 History metoprolol succinate 25 mg 25 mg PO BID #60 tabs 01/10/22 05/10/23 Rx tablet,extended release 24 hr acetaminophen 500 mg tablet 1,000 mg PO Q6H PRN Pain 05/31/22 05/10/23 History brimonidine 0.2 % eye drops 1 drp EYE-BOTH BID 05/31/22 01/11/23 History dorzolamide 2 % eye drops 1 drp EYE-BOTH BID 05/31/22 01/11/23 History rosuvastatin 10 mg tablet 10 mg PO BEDTIME 05/31/22 05/10/23 History oxycodone 5 mg tablet 5 mg PO Q4H PRN pain #30 tabs 01/11/23 Rx ondansetron 4 mg disintegrating 4 mg PO Q8H PRN nausea and 05/10/23 Rx tablet vomiting #5 tabs oxycodone 5 mg tablet 5 mg PO Q4H PRN pain #40 tabs 05/10/23 Rx rivaroxaban 10 mg tablet (Xarelto) 10 mg PO DAILY #35 tabs 05/10/23 Rx Allergies Allergy/AdvReac Type Severity Reaction Status Date / Time Penicillins Allergy Severe Rash Verified 05/10/23 09:18 tetracycline Allergy Severe Rash Verified 05/10/23 09:18 Review of Systems Review of Systems Narrative: All other systems reviewed with the patient and are negative unless otherwise stated. Exam Vital Signs (past 8 hours): - 05/10/23 09:29 05/10/23 13:30 05/10/23 13:34 Temperature 97.1 F L 97.1 F L Pulse Rate 72 89 96 H Respiratory Rate 16 18 16 Blood Pressure 132/55 L 179/123 H 209/129 H Pulse Oximetry 98 90 L 92 Oxygen Delivery Method Room Air Simple Mask Simple Mask Oxygen Flow Rate 10 6 05/10/23 13:40 05/10/23 13:45 05/10/23 13:49 Temperature Pulse Rate 82 73 72 Respiratory Rate 16 16 18 Blood Pressure 196/157 H 133/72 115/79 Pulse Oximetry 95 94 95 Oxygen Delivery Method Simple Mask Simple Mask Room Air Oxygen Flow Rate 10 10 05/10/23 13:54 05/10/23 13:59 05/10/23 14:08 Temperature 97.1 F L Pulse Rate 74 78 80 Respiratory Rate 16 18 18 Blood Pressure 146/73 H 151/84 H 156/89 H Pulse Oximetry 93 93 92 Oxygen Delivery Method Simple Mask Simple Mask Nasal Cannula Oxygen Flow Rate 5 5 3 05/10/23 14:14 05/10/23 14:20 05/10/23 14:24 Temperature Pulse Rate 80 73 87 Respiratory Rate 16 12 16 Blood Pressure 150/86 H 157/78 H 157/56 H Pulse Oximetry 92 100 98 Oxygen Delivery Method Nasal Cannula Simple Mask Oxygen Flow Rate 3 6 6 05/10/23 14:35 05/10/23 14:44 05/10/23 14:55 Temperature 97.0 F L Pulse Rate 76 70 73 Respiratory Rate 18 14 16 Blood Pressure 152/88 H 153/86 H 144/85 H Pulse Oximetry 90 L 97 96 Oxygen Delivery Method Nasal Cannula Nasal Cannula Nasal Cannula Oxygen Flow Rate 3 3 3 05/10/23 14:59 05/10/23 15:06 05/10/23 15:12 Temperature Pulse Rate 71 73 75 Respiratory Rate 14 12 14 Blood Pressure 120/96 H 153/79 H 141/79 H Pulse Oximetry 97 97 96 Oxygen Delivery Method Nasal Cannula Nasal Cannula Room Air Oxygen Flow Rate 3 3 05/10/23 15:22 05/10/23 15:36 05/10/23 15:46 Temperature Pulse Rate 75 76 88 Respiratory Rate 18 14 16 Blood Pressure 154/75 H 154/75 H 126/73 Pulse Oximetry 94 91 97 Oxygen Delivery Method Room Air Room Air Nasal Cannula Oxygen Flow Rate 3 Oxygen Delivery Method Nasal Cannula Oxygen Flow Rate 3 Narrative Exam Narrative: General:? Patient is well developed and well nourished, in no distress at this time. HEENT:? Normocephalic, atraumatic, extraocular muscles intact, oral pharynx is clear and mucous membranes are moist. Neck: supple and symmetric, trachea is midline, no cervical adenopathy. Negative for JVD Chest:? Normal AP diameter and contour without kyphoscoliosis, no tachypnea, equal chest rise bilaterally. Lungs:? CTA b/l no wheezing rhonchi or rales. Cardio:?RRR no m/r/g. Abdomen: S NT ND. Extremities: No edema though left ankle bandaged in a boot Neuro:? Alert and orientated x3,? sensation to touch intact in all extremities, no gross deficits noted of cranial nerves. Psych:? Patient has a well-kept appearance, appropriate affect, mental status attitude thought context and judgment are appropriate for age. [facility] Medical History Hardware complicating wound infection DVT (deep venous thrombosis) Ankle fracture Heart attack HTN (hypertension) Migraines COVID-19 virus infection (01/10/22) Easy bruisability Arthritis Glaucoma Surgical History History of orthopedic surgery (01/11/23) History of open reduction and internal fixation (ORIF) procedure (02/27/22) History of orthopedic surgery (06/01/22) History of spinal fusion (12/21/20) Hx of tubal ligation History of trabeculectomy History of bilateral cataract extraction History of eye surgery Hx of cervical spine surgery (03/2001) History of spinal fusion (01/2014) Family History Mother Infection, dialysis vascular access Social History household members: none Tobacco & Substance Use Smoking Status: Former smoker alcohol intake: current Assessment & Plan Assessment & Plan narrative: 1. Aspiration pneumonitis due to anesthesia / intubation with acute respiratory failure with hypoxia - continue supportive care, no antibiotics necessary unless prolonged symptoms. Continue to use incentive spirometry every hour at minimum while awake - Goal O2 90-96% while on supplemental therapy - have ordered basic labs including CBC, CMP, Mg. Will order EKG as well though patient is currently without chest pain and ACS is felt to be unlikely. - RT evaluation and treatment. 2. history of NSTEMI, possible takotsubo - continue home aspirin and statin therapy. - ordered EKG as noted above. - prior cath showed normal angiography 3. s/p ankle fusion - managment per orthopedic surgery 4. history of VTE - restart home anticoagulation as soon as possible per primary team. Code: Full, surrogate is patient's daughter I have utilized all available immediate resources to obtain, update, or review the patient's current medications. Additional history obtained from orthopedic provider, COMMERCIAL ROOFER. Case discussed with orthopedic provider Dr. Wong to create the above assessement and plan.
--- NOTE | 2023-05-10 16:09 | SUR.PHASEI ---
Admitting pt to room 213 and will give bedside report.
[2023-05-10] MEDS: LACTATED RINGERS 1,000 ML 75 ML IV (16:59)
[2023-05-10] MEDS: ACETAMINOPHEN 325 MG TABLET 650 MG PO (16:59)
[2023-05-10] MEDS: PREGABALIN 75 MG CAPSULE PO ×2 (17:00→23:55)
[2023-05-10] MEDS: TIZANIDINE 4 MG TABLET 8 MG PO (20:05)
[2023-05-10] MEDS: SENNOSIDES 8.6 MG TABLET 17.2 MG PO (20:06)
[2023-05-10] MEDS: METOPROLOL ER 25 MG TABLET PO (20:06)
[2023-05-10] MEDS: DOCUSATE 100 MG CAPSULE PO (20:06)
[2023-05-10] MEDS: ATORVASTATIN 20 MG TABLET PO (20:08)
[2023-05-10 22:31] LABS: Add Manual Diff / Slide Review NO; Basophils Absolute Auto 100 /uL (0-100); Basophils Percent Auto 0.8 % (0-2); Eosinophils Absolute Auto 0 /uL (0-450); Hematocrit 33.7 % (36-46); Hemoglobin 11.1 g/dL (12.0-16.0); Lymphocytes Absolute Auto 900 /uL (1100-4500); Lymphocytes Percent Auto 10.9 % (25-40); Mean Corpuscular Hemoglobin 28.2 PG (26-34); Mean Corpuscular Volume 85.4 fL (80-100); Monocytes Absolute Auto 200 /uL (0-900); Monocytes Percent Auto 2.8 % (3-14); Neutrophils Absolute Auto 7000 /uL (1500-7000); Neutrophils Percent Auto 85.5 % (50-75); Platelet Count 144 X10^3/uL (150-400); Red Blood Cell Count 3.95 X10^6/uL (4.0-5.2); White Blood Cell Count 8.2 X10^3/uL (4.5-11.0)
[2023-05-10 22:43] LABS: Alanine Aminotransferase 23 IU/L (<35); Albumin 3.6 g/dL (3.5-5.0); Albumin Globulin Ratio 1.2 (1.0-2.8); Alkaline Phosphatase 125 U/L (38-126); Aspartate Aminotransferase 37 IU/L (14-36); BUN Creatinine Ratio 18.6 (6-22); Bilirubin Total 0.4 mg/dL (0.2-1.3); Blood Urea Nitrogen 24 mg/dL (7-17); Calcium 8.7 mg/dL (8.4-10.2); Carbon Dioxide 24 mmol/L (22-32); Chloride 103 mmol/L (98-107); Estimated Glomerular Filt Rate 45 mL/min (>60); Globulin 3.1 g/dL (1.7-4.1); Glucose 216 mg/dL (80-110); HEMOLYSIS < 15 (0-50); Magnesium 1.6 mg/dL (1.6-2.3); Potassium 4.5 mmol/L (3.4-5.1); Sodium 136 mmol/L (137-145); Total Protein 6.7 g/dL (6.3-8.2)
[2023-05-11] MEDS: CEFAZOLIN 2 GM/100 ML PREMIX 100 ML IV (02:58)
[2023-05-11] MEDS: ACETAMINOPHEN 325 MG TABLET 650 MG PO ×2 (03:08→09:45)
[2023-05-11] MEDS: OXYCODONE IR 10 MG TABLET PO (03:08)
[2023-05-11 05:13] VITALS: BP 113/57; PULSE 63; RESP 18; TEMP 36.4; O2SAT 95
[2023-05-11] MEDS: HYDROMORPHONE 0.5 MG INJ IV (05:16)
[2023-05-11 05:28] LABS: Add Manual Diff / Slide Review NO; Basophils Absolute Auto 100 /uL (0-100); Basophils Percent Auto 0.7 % (0-2); Eosinophils Absolute Auto 0 /uL (0-450); Hematocrit 32.9 % (36-46); Lymphocytes Absolute Auto 1000 /uL (1100-4500); Lymphocytes Percent Auto 10.8 % (25-40); Mean Corpuscular HGB Conc 33.5 % (30-36); Mean Corpuscular Hemoglobin 28.4 PG (26-34); Mean Corpuscular Volume 84.7 fL (80-100); Monocytes Absolute Auto 700 /uL (0-900); Monocytes Percent Auto 6.9 % (3-14); Neutrophils Absolute Auto 7900 /uL (1500-7000); Neutrophils Percent Auto 81.6 % (50-75); Platelet Count 149 X10^3/uL (150-400); Red Blood Cell Count 3.88 X10^6/uL (4.0-5.2); Red Cell Distribution Width 14.6 % (11.6-14.8); White Blood Cell Count 9.7 X10^3/uL (4.5-11.0)
[2023-05-11 05:41] LABS: Alanine Aminotransferase 24 IU/L (<35); Albumin 3.8 g/dL (3.5-5.0); Albumin Globulin Ratio 1.3 (1.0-2.8); Alkaline Phosphatase 127 U/L (38-126); Aspartate Aminotransferase 34 IU/L (14-36); BUN Creatinine Ratio 18.4 (6-22); Bilirubin Total 0.4 mg/dL (0.2-1.3); Blood Urea Nitrogen 21 mg/dL (7-17); Carbon Dioxide 23 mmol/L (22-32); Chloride 104 mmol/L (98-107); Estimated Glomerular Filt Rate 52 mL/min (>60); Glucose 148 mg/dL (80-110); HEMOLYSIS < 15 (0-50); Magnesium 1.8 mg/dL (1.6-2.3); Potassium 4.4 mmol/L (3.4-5.1); Sodium 136 mmol/L (137-145); Total Protein 6.8 g/dL (6.3-8.2)
[2023-05-11 08:00] VITALS: O2SAT 94
[2023-05-11] MEDS: OXYCODONE IR 5 MG TABLET PO (08:30)
[2023-05-11] MEDS: PARoxetine 20 MG TABLET 40 MG PO (08:30)
[2023-05-11] MEDS: polyethylene glycoL 3350 17 GM POWD.PACK PO (08:30)
[2023-05-11] MEDS: DOCUSATE 100 MG CAPSULE PO (08:31)
[2023-05-11] MEDS: OXYBUTYNIN 5 MG ER TAB 10 MG PO (08:31)
[2023-05-11] MEDS: PREGABALIN 75 MG CAPSULE PO (08:32)
[2023-05-11] MEDS: RIVAROXABAN 10 MG TABLET PO (08:32)
--- NOTE | 2023-05-11 08:46 | CM.DANOTE ---
Addendum entered by Lauryn Suresh R.N. 05/11/23 12:10: Yolie from [facility] called back, indicated, they should be able to see her on Saturday, let her know that referral was faxed, and she was on their services before. Let her know that RN was ordered, due to some of her co-morbdities and oxygen levels post surgery, along with P.T. Addendum entered by Lauryn Suresh R.N. 05/11/23 11:17: Patient is wanting home health, did have [facility] before, and was pleased with their services. Patient feels RN and P.T. would be beneficial, had home set up for showers, daughter to help. Will order [facility]. Called [facility] and left a message with their answering services regarding referral. Patient feels that she does not need services right away. Left a message with Liliane Rain, [facility] marketing services coordinator for [facility], regarding the referral. Will complete face to face and orders, and will send them and clinicals over to [facility]. Original Note: DCP: Case received, EMR reviewed and met with patient. Introduced self and role. Was able to obtain information regarding patient's baseline activity status prior to her surgery, as well as her current living situation. DCP assessment completed with information currently available. Patient is a 67 year old male who admitted yesterday morning under OBS to the care of the orthopedic team. PCP: Dr. Worthington. Payer: confirmed: [facility]. Patient came to the hospital via private vehicle for a surgical procedure. Patient had Left ankle arthrodesis. This is secondary to having posttraumatic arthritis, after an ankle fracture dislocation. Patient also had a hospitalist consult secondary to her decreased oxygen saturation. Notes indicate that patient was requiring oxygen to keep her above 90, and there was some concerns about possible aspiration pneumonia. Met with patient in her room. She is alert, not on any oxygen. Confirmed that she resides in [place]. Her daughter, , is staying with her from [place], since she normally lives alone. She has a wheel chair and walker for home use. Confirmed with her that she did have home infusions last year, for bone infection, but not currently. Notes indicate at last admission, that patient went home with [facility]. P: DCP to continue to follow. She will work with P.T, and O.T, prior to discharge. At this time, home is the plan. Lauryn Suresh RN/Boomswing Operator Discharge Planning/Care Management CM Discharge Assessment Start: 05/11/23 08:44 Freq: Status: Active Protocol: Document 05/11/23 08:44 (Rec: 05/11/23 08:46 [id number]) Discharge Planning Assessment Assigned Wheel Adjuster Lauryn Suresh RN/Boomswing Operator Advance Directives? No History Provided By Patient,Medical Record Prior Living Arrangements House Household Members none Type of transporation used prior to Relies on Others admit Caregiver for Another No DME Already Rented / Owned Wheelchair,FWW / Walker Comment Will check in again to see if she is interested in home health. Barriers to Discharge No Comment Patient does live alone and daughter is here from [place], and is staying with he to assist Discharge Plan Home Transportation Arrangement Daughter Referrals Initiated Other Additional Comment Can check in before discharge to see if she is interested in home health. If patient plan is home with home health Will need hospitalist to sign. : Has signed face to face form been completed? Whiteboard Updated in Patient Room with Yes name and ext. # of Wheel Adjuster Review Status In Process Next Review Type Continued Stay Review Pre-Anesthesia Assessment Start: 05/08/23 08:45 Freq: Status: Active Protocol: Document 05/08/23 08:45 CAB (Rec: 05/08/23 08:53 CAB [id number]) Pre-Anesthesia Assessment Patient Information Reviewed Via Chart Review Primary Care Provider Windy Worthington Seen Specialist in Last 12 Months Yes Specialist Seen Environmental Studies Department Chair,Orthopedist Primary Language Belgian Preferred Language Belgian School Director Required No Height 5 ft 10 in Weight 205 lb Body Mass Index (BMI) 29.4 Hearing Ability Normal Visual Assist Glasses Dentition Type Teeth, Natural Present Barriers to Learning None Hx Anesthesia Reactions No Hx Family Anesthesia Reaction No Hx Malignant Hyperthermia No Hx Blood Transfusions No Hx Blood Transfusion Reaction No Anesthesia Review Requested No Sales Account Manager No alcohol intake current alcohol intake frequency holidays/special occasions only Smoking Status Former smoker Tobacco type cigarettes how long ago did patient quit smoking Quit approx 20 years ago Substance Use Type does not use Pain Present Pain Reported Musculoskeletal Symptoms Abnormal Gait,Difficulty Walking,Joint Pain History of Falling (Recent or History of Yes ) Patient is completely paralyzed or No completely immobile Prosthesis or Orthotic Device Cane Is patient on oxygen? No Does patient have SCHMITT/SOB No Hx Sleep Apnea No CPAP/BIPAP use not prescribed Currently Taking a Beta Benita Yes: Metoprolol Can You Climb a Flight of Stairs Without Yes SOB Hx Chest Pain Yes Hx SOB No Hx Syncope or Dizziness No Anti-Coagulant Therapy Yes: Plavix? Unsure if taking- not listed on current med list in [facility] Has a Environmental Studies Department Chair Yes Environmental Studies Department Chair name Dr. Hahn @ [facility] Cardiac Testing No Hx Pacemaker/ICD No Pacemaker Rep Required? No Comment Prior cardiac records scanned Urinary Catheter Present No Hx Urinary Self Catheterization No Diabetes No Patient No Lactating No Hx Drug Resistant Organism H-pylori Presence of External or Internal Medical Yes: Lumbar/cervical spine, Devices eyes, left ankle hardware Received a COVID vaccine? No Marital Status Single Lives With none Patient Discharge Plan Description Return Home Do You Have Any Spiritual Beliefs That No May Affect Your HC Choices? Do You Have Any Cultural Practices That No May Affect Your HC Choices? Emergency Contact Name Shelbi Washington(daughter) Emergency Contact Advance Directives? No Power of Shift Lab Technician No
--- NOTE | 2023-05-11 09:00 | PT.IIE ---
Current Diagnoses Post-traumatic osteoarthritis, left ankle and foot (05/10/23) Post-traumatic osteoarthritis, unspecified ankle and foot (05/10/23) Surgery Performed Operation Date: 05/10/23 10:45 Actual Procedures p Ankle Fusion with use of allograft bone(Left) - Haley Wong MD Surgical History (Last Reviewed 05/10/23 @ 16:08 by Antonio Fitzgerald DO) History of bilateral cataract extraction History of eye surgery History of open reduction and internal fixation (ORIF) procedure (02/27/22) History of orthopedic surgery (06/01/22) History of orthopedic surgery (01/11/23) History of spinal fusion (01/2014) History of spinal fusion (12/21/20) History of trabeculectomy Hx of cervical spine surgery (03/2001) Hx of tubal ligation Medical History (Last Reviewed 05/10/23 @ 16:08 by Antonio Fitzgerald DO) Ankle fracture Arthritis COVID-19 virus infection (01/10/22) DVT (deep venous thrombosis) Easy bruisability Glaucoma Hardware complicating wound infection Heart attack HTN (hypertension) Migraines Physical Therapy Inpatient Evaluation/Re-Eval M1 PT/OT-IP Prior Functional Status Start: 05/11/23 10:56 Freq: NEEDED Status: Active Protocol: Document 05/11/23 09:00 AB (Rec: 05/11/23 11:14 AB [id number]) Medical Review Prior Functional Status Medical History Reviewed Yes Communication able to make needs known Mobility and Gait pt stated that she was modified independent with all mobilities and ambulation using a SPC but occasionally able to ambulate without AD indoors Social History Household Members children Living Arrangements House Number of Floors (Floors) One Floor Number of Stairs To Enter/Railing? no steps to enter Home Environment Standard Height Toilet,Walk in Shower,Built-In Shower Seat Home Equipment Front Wheel Walker,Straight Cane,Manual Wheelchair,Raised Toilet Seat w/Armrests,Hand Held Shower,Grab Bars In Shower Additional Social History Comment pt has her daughter to assist her at home M2 PT-IP Current Condition Start: 05/11/23 10:56 Freq: NEEDED Status: Active Protocol: Document 05/11/23 09:00 AB (Rec: 05/11/23 11:14 AB [email or web address]) Physical Therapy Current Condition Current Condition Evaluation Date 05/11/23 Treatment Diagnosis s/p L ankle fusion; difficulty in walking Onset Date 05/10/23 M3 PT-IP Subjective Start: 05/11/23 10:56 Freq: NEEDED Status: Active Protocol: Document 05/11/23 09:00 AB (Rec: 05/11/23 11:14 AB [id number]) Subjective Physical Therapy Visit Type Type Initial Evaluation Visit Start Time 09:00 Visit Stop Time 09:41 Total Visit Minutes 41 Number of IRRIGATION SUPERVISOR Visits 0 Physical Therapy Visit Comments Patient Comments agreeble to do PT Therapy Pain Assessment Pain When Pain Assessed At Rest Pain Present Pain Present Pain Reported Location left ankle Intensity 3 Scale Used Numeric (0 - 10) Pain Management Techniques Distraction,Elevation, Modification of Treatment,Re- positioning,Timing of Activity with Medications M4 PT-IP Mobility and Gait Start: 05/11/23 10:56 Freq: NEEDED Status: Active Protocol: Document 05/11/23 09:00 AB (Rec: 05/11/23 11:14 AB [id number]) PT-Bed Mobility Assessment Supine to Sit Supine to Sit Standby Assistance PT-Transfer Assessment Sit to and From Stand Sit to and from Stand Contact Guard Assistance,1 Person Assistance,Use of Upper Extremities Equipment Transfer Assistive Device Gait Belt,Front Wheeled Walker Orthotic/Prosthetic Devices or Brace: No Transfers Transfer Destination Chair,Bedside Commode Transfer Technique Stand Step Pivot Transfer Ability Level of Assist Contact Guard Assistance,1 Person Assistance,Use of Upper Extremities Comments Mobility Comments pt supine in bed and agreeable to do PT. educated pt on weight bearing status on LLE of NWB. BP: 104/46. completed supine to sit SBA. able to sit on EOB SBA. BP in sittin/47. pt requested to use the toilet. bedside commode placed next to pt. pt completed sit to stand cGA and step transfer to the commode CGA using fWW. pt able to maintain NWB on LLE. pt completed toileting needs SBA. completed sit to stand CGA and able to take ~ 4 steps to the chair using FWW CGA. positioned pt on the chair. call light and table placed within reach. Gait Assessment Comments Gait Comments able to take a few steps during transfers PT-Balance Assessment Sitting Balance and Reactions Static Sitting Balance Ability Normal Dynamic Sitting Balance Ability Good Standing Balance and Reactions Static Standing Balance Ability Fair Dynamic Standing Balance Ability Fair Device Used FWW M5 PT-IP Objective Assessments Start: 05/11/23 10:56 Freq: NEEDED Status: Active Protocol: Document 05/11/23 09:00 AB (Rec: 05/11/23 11:14 AB [id number]) Orientation Orientation/Cognition Level of Alertness Alert Gross Range of Motion Lower Extremity ROM Impairments L ankle on soft cast: NT Strength Lower Extremity Strength Hip 3+/5 Knee 4-/5 Ankle L: NT Sensation Assessment Sensation Sensation Description Numbness Comments Sensation Comments L toes: numbness R lower leg to foot: c/o numbness due to neuropathy Muscle Tone Muscle Tone WNL Yes M6 PT-IP Treatment Start: 05/11/23 10:56 Freq: NEEDED Status: Active Protocol: Document 05/11/23 09:00 AB (Rec: 05/11/23 11:14 AB [email or web address]) Physical Therapy Treatment Education Education Provided Precautions,Weight Bearing Status,Safety M7 PT-IP Assessment and Plan Start: 05/11/23 10:56 Freq: NEEDED Status: Active Protocol: Document 05/11/23 09:00 AB (Rec: 05/11/23 11:14 AB [id number]) PT Summary Assessment and Plan Potential Rehabilitation Potential Fair Status of Condition at Evaluation Evolving Summary Impairments Pain,ROM,Strength,Balance, Coordination,Sensation,Tone, Cognition,Bed Mobility, Transfers,Gait,Activity Tolerance Assessment Summary pt is a 67y/o F who underwent L ankle fusion. pt with h/o L ankle ORIF last year but with h/o infection with subsequent L ankle fusion. pt is NWB on L ankle. pt requiring CGA with mobility using FWW and able to take a few steps using FWW. pt has a manual w/c that she can use at home and will also have her daughter to assist her. pt refused caregiver training and stated that her daughter is trained since pt has previous ankle ORIF. pt may go home when medically stable. Goals Bed Mobility Goal Independent Transfer Goal Independent,Front Wheeled Walker Gait Goal Independent,Front Wheel Walker Gait Distance 25 Days to Meet Goals 10 Frequency of Treatment Frequency Of Treatment Twice a Day Treatment Plan Physical Therapy Treatment Plan Bed Mobility Training,Transfer Training,Gait Training, Therapeutic Exercise,Balance Retraining,Post Op Education, Discharge Planning,Hot or Cold Pack,Neuromuscular Re-ed, Coordination Retraining,Manual Therapy Weight Bearing Status Weight Bearing Status Non-Weight Bearing Allowed Weight Bearing Amount (enter % LLE NWB or #) (%) Recommendations To Nursing Amount of Assist Needed 1 Person Assist Discharge Recommendations PT Discharge Recommendations Home with Assistance,Home Health Transportation Needs at Discharge Private Vehicle
--- NOTE | 2023-05-11 09:29 | P.DS_ITS ---
History of Present Illness History of Present Illness Date Patient Seen: 05/11/23 Time Patient Seen: 09:29 Chief complaint: Left Ankle Fusion Narrative: Postop day 1 left ankle fusion. Was admitted for observation. For hypoxemia postop. Medicine was consulted. Did well overnight coughing has subsided. Satting has weaned off the oxygen and is satting in the 90s this morning. We regional block starting to wear off. Pain controlled patient's tongue is feeling better today she bit her tongue upon emergence of anesthesia Discharge Providers Provider Date of admission: 05/10/2023 Discharge Date: 05/11/23 Primary care physician: Windy Worthington PA-C Consults: 05/10/23 16:30 Consult to Discharge Planning Routine Comment: Consult to Physical Therapy Evaluate & Treat Comment: Physician Instructions: Evaluate and Treat Consult to Physician Routine Comment: Consulting Provider: Antonio Fitzgerald Reason for consultation: Aspiration pneumonia Has provider been notified: Yes Discharge provider: Cristo Carrillo PA-C Summary Hospital Course Discharge Diagnosis: 1. Left ankle arthritis 2. Hypoxemia acute postop 3. Tongue laceration Hospital Course: Status post left ankle arthrodesis on emergence of anesthesia patient was noted to clamp down on bite her tongue to standing a laceration that did not require intervention in the PACU the patient was noted to have low oxygen saturation in the 80s and required supplemental oxygen. Chest x-ray was obtained that showed possible aspiration pneumonia versus chronic changes. Due to requirement of supplemental oxygen internal medicine was consulted. She required supplemental oxygen weaning and was admitted due due to hypoxemia to observation. Overnight she was able to be weaned successfully in her coughing subsided and was stable on room air postop day 1 in the morning. Appropriate for discharge home Status at Discharge Cognitive/behavioral status at discharge: oriented Functional status at discharge: uses cane/walker Overall status at discharge: patient is progressing back to baseline Time Spent with Patient Time spent: Less than 30 minutes Exam Vital Signs (past 8 hours): - 05/11/23 05:13 05/11/23 08:00 Temperature 97.6 F Pulse Rate 63 Respiratory Rate 18 Blood Pressure 113/57 L Pulse Oximetry 95 94 Oxygen Delivery Method Room Air Oxygen Flow Rate 0 Oxygen Delivery Method Room Air Oxygen Flow Rate 0 Narrative Exam Narrative: Alert and oriented no acute distress. Respiratory unlabored on room air saturating in the 90s. Tongue better this morning. Left lower extremity in splint block wearing off toes still little bit numb. Toes warm and well perfused. Objective Labs 05/11/23 05:10 05/11/23 05:10 Labs: Laboratory Results - last 24 hr 05/10/23 05/11/23 22:24 05:10 WBC 8.2 9.7 RBC 3.95 L 3.88 L Hgb 11.1 L 11.0 L Hct 33.7 L 32.9 L MCV 85.4 84.7 MCH 28.2 28.4 MCHC 33.0 33.5 RDW 15.0 H 14.6 Plt Count 144 L 149 L Neut % (Auto) 85.5 H 81.6 H Lymph % (Auto) 10.[address] [place] % (Auto) 2.8 L 6.9 Eos % (Auto) 0.0 L 0.0 L Baso % (Auto) 0.8 0.7 Neut # (Auto) 7000 7900 H Lymph # (Auto) [address] [place] # (Auto) 200 700 Eos # (Auto) 0 0 Baso # (Auto) 100 100 Sodium 136 L 136 L Potassium 4.5 4.4 Chloride 103 104 Carbon Dioxide 24 23 BUN 24 H 21 H Creatinine 1.29 H 1.14 H Estimated GFR 45 L 52 L BUN/Creatinine Ratio 18.6 18.4 Glucose 216 H 148 H Calcium 8.7 9.0 Magnesium 1.6 1.8 Total Bilirubin 0.4 0.4 AST 37 H 34 ALT 23 24 Alkaline Phosphatase 125 127 H Total Protein 6.7 6.8 Albumin 3.6 3.8 Globulin 3.1 3.0 Albumin/Globulin Ratio 1.2 1.3 PFSH Medical History Hardware complicating wound infection DVT (deep venous thrombosis) Ankle fracture Heart attack HTN (hypertension) Migraines COVID-19 virus infection (01/10/22) Easy bruisability Arthritis Glaucoma Surgical History History of orthopedic surgery (01/11/23) History of open reduction and internal fixation (ORIF) procedure (02/27/22) History of orthopedic surgery (06/01/22) History of spinal fusion (12/21/20) Hx of tubal ligation History of trabeculectomy History of bilateral cataract extraction History of eye surgery Hx of cervical spine surgery (03/2001) History of spinal fusion (01/2014) Family History Mother Infection, dialysis vascular access Social History household members: none Smoking Status: Former smoker alcohol intake: current Discharge Assessment & Plan Assessment and Plan Assessment: Left ankle arthritis Postop hypoxemia possible aspiration 1. Postop day 1 status left ankle fusion. Nonweightbearing or touchdown for balance for 8 weeks 2. DVT prophylaxis Xarelto 10 mg for 35 days. 3. Hypoxemia improved coughing improved 4. Vital signs stable for discharge home today Discharge Plan Discharge Plan Patient Disposition: Home Discharge orders & Medications Discharge Orders: Discharge (Order); Ordered 05/11/23 Ordered By: Cristo Carrillo Prescriptions: New oxycodone 5 mg tablet 5 mg PO Q4H PRN (Reason: pain) Qty: 40 0RF Rx Instructions: Postop exempt ondansetron 4 mg tablet,disintegrating 4 mg PO Q8H PRN (Reason: nausea and vomiting) Qty: 5 1RF Xarelto 10 mg tablet 10 mg PO DAILY Qty: 35 0RF Rx Instructions: for 35 days for blood clot prevention Continued latanoprost 0.005 % drops 1 drp EYE-BOTH BEDTIME Patient Comments: Instill 1 drop into both eyes every night paroxetine HCl 40 mg tablet 40 mg PO DAILY Patient Comments: TAKE 1 TABLET BY MOUTH DAILY eszopiclone 3 mg tablet 3 mg PO BEDTIME PRN (Reason: Sleep) timolol maleate 0.5 % drops, once daily 1 drp EYE-BOTH BID Patient Comments: INSTILL 1 DROP IN BOTH EYES TWICE DAILY pregabalin 75 mg capsule 75 mg PO Q8H Myrbetriq 50 mg tablet extended release 24 hr 50 mg PO DAILY Patient Comments: Take 1 tablet by mouth once a day solifenacin 10 mg tablet 10 mg PO QAM metoprolol succinate 25 mg Tablet Extended Release 24 Hr 25 mg PO BID Qty: 60 0RF brimonidine 0.2 % Drops 1 drp EYE-BOTH BID dorzolamide 2 % Drops 1 drp EYE-BOTH BID rosuvastatin 10 mg Tablet 10 mg PO BEDTIME acetaminophen 500 mg Tablet 1,000 mg PO Q6H PRN (Reason: Pain) tizanidine 4 mg Tablet 8 mg PO BEDTIME Qty: 30 0RF oxycodone 5 mg tablet 5 mg PO Q4H PRN (Reason: pain) Qty: 30 0RF Rx Instructions: postop exempt Follow up/Referrals: Windy Worthington PA-C [Primary Care Provider] - Diet/Activity/Treatments Diet: Diet as Tolerated Activity: Nonweightbearing left lower extremity, may touchdown for balance Other treatments: At-Home Instructions - Dr. Wong Surgery: Left ankle fusion Cast/Splint/Dressing Care Instructions 1) Keep cast/dressing clean and dry. 2) May bathe - but cast/dressing must remain dry. 3) Should the cast become wet, you need to call your physician's clinic immediately for cast removal and replacement. Moisture can cause skin breakdown and lead to infection if left untreated. 4) Do not stick any sharp object down the cast to itch, as this can cause scrapes/cuts/punctures which can lead to infection. 5) Observe for increasing pain in the extremity with the cast, finger/toe-tips turning blue/purple, or numbness and tingling in your toes/fingers. Should any of these symptoms arise, you need to be seen immediately for evaluation of swelling and increasing compartment pressures within your affected extremity. 6) Keep your affected extremity elevated - Toes Above your Nose? - This is pierce in the first two weeks after surgery to minimize swelling. 7) You may ice your extremity, being careful to prevent melting ice from saturating into the splint/cast. Activity No heavy lifting greater than 10 pounds. [address] while on narcotic pain medication. Do not get your dressing/cast/splint wet! You must remain non-weight bearing on your operative extremity. Use crutches or a walker for ambulation. No driving until you are otherwise instructed by your physician. This will be addressed at your first follow-up appointment. Discharge Pain Medications You will be given a prescription for pain medication. You should start taking this the same day after your surgery. Wean off as tolerated. Do not wait to take the pain medication until the pain is severe, as it will be difficult to catch up once this occurs. The pain medication usually reaches its full effect ~1 hour after ingesting. If you have been sent home on Colace, this medication should be taken until you are off all narcotic (i.e. Vicodin, Percocet, Oxycodone, etc) pain medications, to prevent constipation. You may also obtain this or another stool softener over the counter to prevent or alleviate constipation. Percocet or Vicodin have Tylenol in their ingredient lists. You must be careful not to exceed 3,000mg (3 grams) of Tylenol, from all sources, within a single 24-hr period. This means that you may not take more than 10 pills within a 24- hr period. Do NOT take Regular or Extra Strength Tylenol when taking your Percocet or Vicodin medications. -IF you have been given a Toradol/ketorolac prescription, this is a very strong anti-inflammatory. Do not take cafu-ubq-sbdqxhr anti-inflammatories (ibuprofen, Aleve, Advil, Motrin) while taking the Toradol/ketorolac. Once you are finished with this prescription, then you can resume ebag-bix-hbrxqeh anti- inflammatories. You can still take your narcotic pain medication and Tylenol while taking the Toradol/ketorolac. -Some common side effects of the narcotic pain medications (Percocet, Oxycodone, Vicodin, etc.) include nausea and itching. Benadryl is a great over the counter medication that helps calm your stomach, decreases your anxiety levels, and minimizes the itching. You can easily purchase this at your local pharmacy as an khbr-hph-eribkql medication. Please abide by the instructions as printed on the bottle. If your nausea persists, make sure to take small amounts of crackers or other underwater welder foods. -If have been given oxycodone 5 mg tablets, try to take the smallest dose needed to control your pain. Generally start with 5 mg every 4 hours as needed for pain. However you can increase this if you are having significant pain. The maximum dosage for oxycodone would be 15 mg or three (5 mg) tablets p.o. every 3 hours as needed for pain. As soon as pain is better controlled you should decrease the amount of medication your taking and increase the interval between doses. If you are given Percocet or Vicodin or Intervale these are medications with the narcotic and Tylenol in them and they were dosing will need to keep in mind the maximum daily dosages for Tylenol/acetaminophen. Follow-Up/Emergency Contacts Please call for an appointment in either [place] or [place], if one has not been scheduled. Follow up 2 weeks after surgery. [phone] Contact the office if you have any of the following: ? Painful swelling or numbness ? Unrelenting pain ? Fever (over 101?- it is normal to have a low grade fever for the first day or two following surgery) or chills ? Redness around the incisions ? Color changes ? Continuous bleeding or drainage from the incision (a small amount is expected) ? Excessive nausea or vomiting ? Difficulty breathing If you have an emergency that requires immediate attention such as shortness of breath or chest pain, call 911 or proceed to the nearest emergency room. Blood Clot Prophylaxis You will need to complete a total of 35 days' course of Xarelto 10 mg daily for DVT prophylaxis. This will help prevent blood clots. An alternative would be 325 mg of aspirin daily but with your history of an embolism it is recommended to use the Xarelto which is a higher power blood thinner. Pain Medications: It is the policy of [facility] that narcotic medications will only be refilled during office hours. Additionally, due to the alarming rate of narcotic pain medication abuse/dependence, it has become necessary for physician practices to closely manage patient use of prescription narcotic pain relievers, such as Vicodin (Intervale), Percocet, and Oxycodone products. Narcotic pain management in the postoperative period may not exceed 6 weeks. If narcotic pain management is required beyond 90 days, then a referral to a Chronic Pain Specialist will be made. If a request for a medication prescription has been made, the physician must review your chart prior to authorizing the request. Please be patient with office staff. If you call during patient hours, your call may not be returned until the end of the day. Dr. Haley Severino [place] [address] [email or web address] Skin/Wound/Dressing Care Report to your healthcare provider any signs of infection, such as:: chills, fever, night sweats, increased pain, unusual drainage and unusual redness Visit Report/Discharge Packet Instructions: DI for Prescription Opioid Use Stand Alone Forms: Patient Portal/API Discharge Data Primary Care Provider: Windy Worthington Attending Provider: Haley Wong VTE Deep Vein Thrombosis/Pulmonary Embolism Present on Admission: No
[2023-05-11 09:43] VITALS: BP 100/46; PULSE 73; RESP 18; TEMP 36.2; O2SAT 97
== END 2023-05-11 12:15 | disposition home or self-care (01) ==
LOC: OR 05-13 09:18 → AC 05-13 09:18
PROVIDERS: Internal Medicine; Admitting Provider Orthopaedic Surgery Foot and Ankle Surgery; PCP Physician Assistant; Referring Provider Orthopaedic Surgery Foot and Ankle Surgery; Visit Provider Orthopaedic Surgery Foot and Ankle Surgery
PROC: (CPT 27870; principal; 2023-05-10 10:45)
DX: M19.172 Post-traumatic osteoarthritis, left ankle and foot (principal); G89.18 Other acute postprocedural pain; R09.02 Hypoxemia; J95.4 Chemical pneumonitis due to anesthesia; T41.0X5A Adverse effect of inhaled anesthetics, initial encounter; Y92.238 Other place in hospital as the place of occurrence of the external cause; S01.512A Laceration without foreign body of oral cavity, initial encounter; I10 Essential (primary) hypertension; I25.2 Old myocardial infarction; Z86.718 Personal history of other venous thrombosis and embolism; Z79.01 Long term (current) use of anticoagulants
CPT/HCPCS: 27870; 36415; 64450; 71045; 73610; 76000; 80053; 83735; 85025; 94760; 97162; 97530; G0378; J0171; J0690; J1100; J1170; J2250; J2405; J3010

== ENCOUNTER 2024-10-13 09:19 | Day surgery (SDC) | payer OTHER, SELFPAY ==
[2023-05-10 16:41] VITALS: BMI 29.4
[2024-10-13 09:47] VITALS: BP 124/70; PULSE 73; RESP 16; TEMP 37.1; O2SAT 98
[2024-10-13] MEDS: LACTATED RINGERS 1,000 ML 42 ML IV (10:04)
--- NOTE | 2024-10-13 10:06 | PM.HP.IH.1 ---
History of Present Illness History of Present Illness Date Patient Seen: 10/13/24 Time Patient Seen: 10:06 Chief complaint: Colonoscopy Narrative: 69-year-old female presents for colon screening. Last colonoscopy was 10 years ago and she believes it was normal. [facility] Medical History Hardware complicating wound infection DVT (deep venous thrombosis) Ankle fracture Heart attack HTN (hypertension) Migraines COVID-19 virus infection (01/10/22) Easy bruisability Arthritis Glaucoma Surgical History History of orthopedic surgery (01/11/23) History of open reduction and internal fixation (ORIF) procedure (02/27/22) History of orthopedic surgery (06/01/22) History of spinal fusion (12/21/20) Hx of tubal ligation History of trabeculectomy History of bilateral cataract extraction History of eye surgery Hx of cervical spine surgery (03/2001) History of spinal fusion (01/2014) Family History Mother Infection, dialysis vascular access Social History household members: children Smoking Status: Former smoker alcohol intake: current Meds Home Medications and Allergies Home Medications Medication Instructions Recorded Confirmed Type eszopiclone 3 mg tablet 3 mg PO BEDTIME PRN Sleep 09/29/20 10/13/24 History latanoprost 0.005 % eye drops 1 drp EYE-BOTH BEDTIME 09/29/20 10/13/24 History mirabegron 50 mg tablet,extended 50 mg PO DAILY 09/29/20 10/13/24 History release 24 hr (Myrbetriq) paroxetine HCl 40 mg tablet 40 mg PO DAILY 09/29/20 10/13/24 History pregabalin 75 mg capsule 75 mg PO Q8H 09/29/20 10/13/24 History timolol maleate 0.5 % once daily 1 drp EYE-BOTH BID 09/29/20 10/13/24 History eye drops tizanidine 4 mg tablet 8 mg (2 x 4 mg) PO BEDTIME #30 tabs 12/24/20 10/13/24 Rx solifenacin 10 mg tablet 10 mg PO QAM 01/07/22 10/13/24 History acetaminophen 500 mg tablet 1,000 mg PO Q6H PRN Pain 05/31/22 10/13/24 History dorzolamide 2 % eye drops 1 drp EYE-BOTH BID 05/31/22 10/13/24 History peg 3350-electrolytes 236 240 ml PO Q10M #4,000 mL 09/04/24 10/13/24 Rx gram-22.74 gram-6.74 gram-5.86 gram solution (Golytely) metoprolol succinate 25 mg 25 mg PO DAILY 10/13/24 10/13/24 History tablet,extended release 24 hr omeprazole 20 mg capsule,delayed 20 mg PO DAILY 10/13/24 10/13/24 History release Allergies Allergy/AdvReac Type Severity Reaction Status Date / Time Penicillins Allergy Severe Rash Verified 10/13/24 09:36 tetracycline Allergy Severe Rash Verified 10/13/24 09:36 Review of Systems Review of Systems ROS: Yes All systems reviewed with the patient and are negative except as otherwise documented Exam Vital Signs (past 8 hours): - 10/13/24 09:47 Temperature 98.7 F Pulse Rate 73 Respiratory Rate 16 Blood Pressure 124/70 Pulse Oximetry 98 Oxygen Delivery Method Room Air Oxygen Delivery Method Room Air Narrative Exam Narrative: Gen: NAD, sitting comfortably in bed, appears well HEENT: Sclera are anicteric, head is normocephalic and atraumatic, trachea is midline. CV: RRR, no JVD Resp: clear to auscultation bilaterally, equal chest wall movement bilaterally Abd: soft, nontender, normoactive bowel sounds Ext: no edema, full range of motion Neuro: Cranial nerves II-XII grossly intact, no focal deficits Skin: No erythema or ecchymosis Assessment & Plan Assessment and plan (1) Colon cancer screening: Status: Acute Assessment & Plan narrative: Patient presents for colonoscopy Risks, benefits, alternatives to colonoscopy explained, including but not limited to bowel perforation or other serious complication requiring surgery at less than 1 in 5000 colonoscopies, abdominal pain, cramping or bleeding and less than 1% of colonoscopies, and the chances that we find a diagnosis that would require further intervention of about 2%. Patient agrees to proceed. Time-Based Coding :: [TOTAL MINUTES] spent with patient and on the chart (including review of chart, obtaining history, exam, reviewing outside data, placing orders, documenting exam and treatment plan, and counseling patient) on [DATE]. PROFEE [employer] Consultant Document charge(s): No
--- NOTE | 2024-10-13 10:31 | PM.OP.COLON ---
Operative Date/Time/Diagnoses Date of procedure: 10/13/24 Time of procedure: 10:32 Pre-op diagnosis: Colon screening Post-op diagnosis: same Procedure & Clinicians Study performed: Colonoscopy Same procedure as scheduled: Yes Indications: Colon screening Surgeon: Griffin Ashley Procedure Notes SCOAP/Timeout: Perform Procedure in detail: Time-out was performed. Mac was induced. Patient was placed in left lateral decubitus position. The perineum was inspected without any gross abnormality. Lubricated pediatric colonoscope was inserted and advanced to the cecum. The terminal ileum was intubated. The colonoscope was withdrawn slowly inspecting the circumference of the colon. Very small polyps may have been missed, prep quality was adequate. Sigmoid diverticulosis was noted. Retroflexed view of the rectum showed small, non prolapsed nonbleeding internal hemorrhoids. The scope was withdrawn the patient was taken to PACU in good condition. Scope withdrawal time: 6 Findings: divertiulosis Specimen(s): none sent Complications: none Impression: Diverticulosis Post-procedure Recommendations: Colonoscopy in 10 years Follow up: as needed Disposition: PACU
[2024-10-13 10:34] VITALS: BP 137/69; PULSE 79; RESP 15; TEMP 36.6; O2SAT 99
[2024-10-13 10:40] VITALS: BP 134/62; PULSE 79; RESP 15; TEMP 36.6; O2SAT 100
[2024-10-13 10:47] VITALS: BP 131/84; PULSE 75; RESP 15; TEMP 36.4; O2SAT 99
== END 2024-10-13 11:14 | disposition home or self-care (01) ==
PROVIDERS: PCP Physician Assistant; Referring Provider Surgery; Visit Provider Surgery
PROC: 0DJD8ZZ Inspection of Lower Intestinal Tract, Via Natural or Artificial Opening Endoscopic (ICD-10-PCS; CPT 45378; principal; 2024-10-13 10:30)
DX: Z12.11 Encounter for screening for malignant neoplasm of colon (principal); K57.30 Diverticulosis of large intestine without perforation or abscess without bleeding; K64.8 Other hemorrhoids
CPT/HCPCS: G0121; J2405; J2704

== ENCOUNTER → 2024-12-08 11:10 | Outpatient (CLI) | payer OTHER, SELFPAY ==
[2023-05-10 16:41] VITALS: BMI 29.4
--- NOTE | 2024-12-08 11:12 | DI.CT.S_ITS ---
PROCEDURE: CT ANKLE LEFT WITHOUT INDICATIONS: arthritis of left subtalar joint TECHNIQUE: Noncontrast 1-1.5 mm axial sections acquired from above the tibiotalar joint to the bottom of the calcaneus, with coronal and sagittal reformats. COMPARISON: None. FINDINGS: Image quality: Excellent Bones: Tibiotalar arthrodesis with plate and screw construct. Solid osseous fusion of the tibiotalar joint. No hardware complication. Prior screw tracks are seen in the posterior calcaneus. Arthrodesis of the 2nd, 3rd, 4th proximal interphalangeal joint, with solid osseous fusion. The screw transfixing the 2nd proximal interphalangeal joint is slightly proud, and extends outside the dorsal cortex of the 2nd middle phalanx. Partial osseous fusion of the distal tibiotalar syndesmosis. No acute fracture. Healed posterior malleolar fracture. No significant degenerative changes of the posterior, and middle subtalar joint. No significant degenerative changes in the midfoot. Soft tissues: The flexors, extensors, and peroneal tendons are grossly intact. The distal Achilles tendon is unremarkable. Mild subcutaneous edema of the medial and lateral ankle. IMPRESSION: 1. Tibiotalar arthrodesis with solid osseous fusion. No hardware complication. 2. Arthrodesis of the 2nd, 3rd, and 4th proximal phalangeal joint with solid osseous fusion. Proud screw extending ossified cortex of the 2nd middle phalanx. 3. No acute fracture. No significant degenerative changes in the subtalar joint and the midfoot. Dictated by: Hortencia Renae M.D. on 12/09/2024 at 16:32 Approved by: Hortencia Renae M.D. on 12/09/2024 at 16:38
== END ==
PROVIDERS: PCP Physician Assistant; Referring Provider Orthopaedic Surgery Foot and Ankle Surgery; Visit Provider Orthopaedic Surgery Foot and Ankle Surgery
DX: M19.072 Primary osteoarthritis, left ankle and foot (principal); Z98.1 Arthrodesis status
CPT/HCPCS: 73700